=== PATIENT | male | born 1985 | race Caucasian/White ===

== ENCOUNTER 2024-10-05 07:24 | Emergency (ER) | payer SELFPAY ==
--- OUTSIDE RECORDS SUMMARY | 2024-10-05 07:28 | XMS REPORT | Continuity of Care Document ---
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 for Estimated GFR: Greater than 90 mL/min/1.73 c0Gombkeqb eGFR is based on the CKD-EPI 2020 equation thatdoes not use a race coefficient. Chemistry (test code = GLU-T) 91 mg/dL 70-105 N Chemistry (test code = CA) 9.2 mg/dL 7.8-10.44 N Chemistry (test code = TBILI-T) 0.8 mg/dL 0.2-1.2 N Chemistry (test code = TP) 6.6 g/dL 6.0-8.3 N Chemistry (test code = ALB) 4.2 g/dL 3.5-5.0 N Chemistry (test code = GLOB) 2.4 g/dL 2.4-3.5 N Chemistry (test code = AG) 1.8 g/dL 1.2-2.2 N Chemistry (test code = ALP) 67 U/L 40-110 N Chemistry (test code = AST) 15 U/L 5-34 N Chemistry (test code = ALT) 13 U/L 8-55 N [id number] 12:55:00* Test Item Value Reference Range Interpretation Comme nts Chemistry (test code = CK) 79 U/L 30-200 N [id number] 12:55:00* Test Item Value Reference Range Interpretation Comme nts Chemistry (test code = LIP) 17 U/L 8-78 N Chemistry - BNP, HgbA1c, [id number] 12:39:00* Test Item Value Reference Range Interpretation Comme nts Chemistry - BNP, HgbA1c, PTHi (test code = BNP) Less than 10.0 pg/mL 0-100 N [id number] 12:23:00* Test Item Value Reference Range Interpretation Comme [facility] Chemistry (test code = TROPI-R) Less than 0.010 ng/mL < 0.028 * Reference Range 0.00 - 0.028 ng/mL Negative 0.029 - 0.29 ng/mL Indeterminate Greater or Equal to 0.3 ng/mL Strongly suggests CO [id number] 12:08:00* Test Item Value Reference Range Interpretation Comme [facility] Hematology (test code = WBCT) 7.5 10x3/uL 4.8-10.8 N Hematology (test code = RBCT) 5.35 mill/uL 4.70-6.10 N Hematology (test code = HGBT) 16.4 g/dL 14.0-18.0 N Hematology (test code = HCTT) 48.0 % 42.0-52.0 N Hematology (test code = MCV) 89.9 fl 78.0-98.0 N Hematology (test code = MCH) 30.8 pg 27.0-31.0 N Hematology (test code = MCHC) 34.2 g/dL 32.0-36.0 N Hematology (test code = RDW) 11.7 % 11.5-14.5 N Hematology (test code = PLTT) 157 10x3/uL 130-400 N Hematology (test code = MPV) 10.1 fL 7.4-10.4 N Hematology (test code = %NEUT) 52.8 % 42.0-75.0 N Hematology (test code = %LYMPH) 35.8 % 21.0-51.0 N Hematology (test code = %MONO) 9.0 % 0.0-10.0 N Hematology (test code = %EOS) 1.9 % 0.0-10.0 N Hematology (test code = %BASO) 0.6 % 0.0-1.0 N Hematology (test code = NEUT#) 3.9 thou/uL 1.40-6.50 N Hematology (test code = LYMPH#) 2.7 thou/uL 1.20-3.40 N Hematology (test code = MONO#) 0.7 thou/uL 0.11-0.59 H Hematology (test code = EOS#) 0.1 thou/uL 0.0-0.7 N Hematology (test code = BASO#) 0.0 thou/uL 0.0-0.2 N BASIC METABOLIC [id number] 21:34:00* Test Item Value Reference Range Interpretation Comme nts SODIUM (test code = NA) 138 mmol/l 134.0-147.0 N POTASSIUM (test code = K) 4.0 mmol/L 3.6-5.2 N CHLORIDE (test code = CL) 103 mmol/l 98.0-107.0 N CARBON DIOXIDE (test code = CO2) 22.9 mmol/l 21.0-33.0 N ANION GAP (test code = GAP) 16.1 0-20 N GLUCOSE (test code = GLU) 81 mg/dl 70.0-110.0 N BLOOD UREA NITROGEN (test co de = BUN) 19 mg/dl 7.0-18.0 H CREATININE (test code = CREAT) 1.00 mg/dL 0.60-1.30 N GFR NON BLACK (test code = GFRNONBLACK) 90 mL/min 105-110 L GFR BLACK (test code = GFRBLACK) 109 mL/min 127-133 L CALCIUM (test code = CA) 8.4 mg/dl 8.0-10.5 N Specimen comments: Clean CatchHEPATIC FUNCTION PANEL [id number] 21:34:00* Test Item Value Reference Range Interpretation Comme nts TOTAL PROTEIN (test code = PROT) 7.1 GM/DL 6.0-8.1 N ALBUMIN (test code = ALB) 4.1 gm/dL 3.2-4.7 N BILIRUBIN TOTAL (test code = BILT) 2.0 mg/dl 0.0-1.0 H BILIRUBIN DIRECT (test code = BILD) 0.4 mg/dl 0.0-0.3 H SGOT/AST (test code = AST) 31 Units/L 15.0-37.0 N SGPT/ALT (test code = ALT) 26 Units/L 12.0-78.0 N ALKALINE PHOSPHATASE TOTAL ( test code = ALKP) 59 Units/L 50.0-136.0 N Specimen comments: Clean [id number] 21:34:00* Test Item Value Reference Range Interpretation Comme nts ACETAMINOPHEN (test code = ACET) <2.0 mcg/ml 10.0-30.0 L Result is in Microgram per milliliter. Specimen comments: Clean [id number] 21:34:00* Test Item Value Reference Range Interpretation Comme nts SALICYLATE (test code = DAELA) 0.4 mg/dl 2.8-20.0 L Specimen comments: Clean [id number] 21:34:00* Test Item Value Reference Range Interpretation Comme nts ALCOHOL (test code = ALC) 0.00 gm/dL 0.00-0.00 N ETHYL ALCOHOL VA LUES - INTERPRETATION: 0.050 GM/DL - NOT INTOXICATED 0.100 GM/DL - INTOXICATED 0.350-0.450 GM/DL - SEVERELY INTOXICATED 0.550 GM/DL- FATAL INTOXICATION Specimen comments: Clean CatchBASIC METABOLIC [id number] 21:27:00* Test Item Value Reference Range Interpretation Comme nts SODIUM (test code = NA) 138 mmol/l 134.0-147.0 N POTASSIUM (test code = K) 4.0 mmol/L 3.6-5.2 N CHLORIDE (test code = CL) 103 mmol/l 98.0-107.0 N CARBON DIOXIDE (test code = CO2) 22.9 mmol/l 21.0-33.0 N ANION GAP (test code = GAP) 16.1 0-20 N GLUCOSE (test code = GLU) mg/dl 70.0-110.0 BLOOD UREA NITROGEN (test co de = BUN) mg/dl 7.0-18.0 CREATININE (test code = CREAT) mg/dL 0.60-1.30 GFR NON BLACK (test code = GFRNONBLACK) mL/min 105-110 GFR BLACK (test code = GFRBLACK) mL/min 127-133 CALCIUM (test code = CA) mg/dl 8.0-10.5 Specimen comments: Clean CatchHEPATIC FUNCTION PANEL [id number] 21:27:00* Test Item Value Reference Range Interpretation Comme nts TOTAL PROTEIN (test code = PROT) gm/dL 6.4-8.2 ALBUMIN (test code = ALB) gm/dl 3.2-4.7 BILIRUBIN TOTAL (test code = BILT) mg/dl 0.0-1.0 BILIRUBIN DIRECT (test code = BILD) mg/dl 0.0-0.3 SGOT/AST (test code = AST) Units/L 15.0-37.0 SGPT/ALT (test code = ALT) Units/L 12.0-78.0 ALKALINE PHOSPHATASE TOTAL ( test code = ALKP) Units/L 50.0-136.0 Specimen comments: Clean [id number] 21:27:00* Test Item Value Reference Range Interpretation Comme nts ACETAMINOPHEN (test code = ACET) mcg/ml 10.0-30.0 Specimen comments: Clean [id number] 21:27:00* Test Item Value Reference Range Interpretation Comme nts SALICYLATE (test code = ADELA) mg/dl 2.8-20.0 Specimen comments: Clean [id number] 21:27:00* Test Item Value Reference Range Interpretation Comme nts ALCOHOL (test code = ALC) gm/dL 0.00-0.00 Specimen comments: Clean CatchCBC W/AUTO [id number] 21:24:00* Test Item Value Reference Range Interpretation Comme nts WHITE BLOOD CELL (test code = WBC) 7.4 K/mm3 4.5-11.0 N RED BLOOD CELL (test code = RBC) 4.91 M/mm3 4.40-5.90 N HEMOGLOBIN (test code = HGB) 14.6 gm/dL 13.0-17.0 N HEMATOCRIT (test code = HCT) 42.4 % 36.0-48.0 N MEAN CELL VOLUME (test code = MCV) 86.4 UM3 80.0-94.0 N MEAN CELL HGB (test code = MCH) 29.7 UUG 25.5-32.5 N MEAN CELL HGB CONCETRATION (test code = MCHC) 34.4 gm/dL 29.0-35.5 N RED CELL DISTRIBUTION WIDTH (test code = RDW) 12.5 % 11.5-15.0 N RED CELL DISTRIBUTION WIDTH SD (test code = RDW-SD) 39.3 fL 34.8-50.2 N PLATELET COUNT (test code = PLT) 109 K/mm3 150-400 L SMALL CLOTS REMOVED FROM THE SAMPLE PRIOR TO ANALYSIS, THUS,GIVING LOWER PLATELET COUNT. RECOLLECT A NEW SAMPLE IFDEEMED NECESSARY. MEAN PLATELET VOLUME (test code = MPV) 12.3 fl 7.4-10.4 H NEUTROPHIL % (test code = NT%) 53.6 % 49.0-76.0 N IMMATURE GRANULOCYTE % (test code = IG%) 0.3 % 0.0-0.4 N LYMPHOCYTE % (test code = LY%) 36.6 % 23.0-38.0 N MONOCYTE % (test code = MO%) 6.3 % 1.0-10.0 N EOSINOPHIL % (test code = EO%) 2.4 % 1.0-5.0 N BASOPHIL % (test code = BA%) 0.8 % 0.0-1.0 N NEUTROPHIL # (test code = NT#) 4.0 K/mm3 2.4-6.3 N IMMATURE GRANULOCYTE # (test code = IG#) 0.02 x10 3/uL 0.00-0.07 N LYMPHOCYTE # (test code = LY#) 2.7 K/mm3 1.2-4.0 N MONOCYTE # (test code = MO#) 0.5 K/mm3 0.0-0.6 N EOSINOPHIL # (test code = EO#) 0.2 K/MM3 0.0-0.7 N BASOPHIL # (test code = BA#) 0.1 K/mm3 0.0-0.2 N URINALYSIS [id number] 21:14:00* Test Item Value Reference Range Interpretation Comme nts UA COLOR (test code = COLU) YELLOW UA APPEARANCE (test code = APPU) CLEAR UA GLUCOSE DIPSTICK (test code = DGLUU) NORMAL mg/dl NORMAL UA BILIRUBIN DIPSTICK (test code = BILU) NEGATIVE mg/dL NEGATIVE UA KETONE DIPSTICK (test code = KETU) 50 mg/dl mg/dl NEGATIVE A UA SPECIFIC GRAVITY (test code = SGU) 1.025 1.000-1.030 UA BLOOD DIPSTICK (test code = MARLEN) NEGATIVE Juaquin/micL NEGATIVE UA PH DIPSTICK (test code = REGGIE) 6.0 5.0-9.0 UA PROTEIN DIPSTICK (test code = PROU) 15 mg/dl mg/dl NEGATIVE A UA UROBILINIOGEN DIPSTICK (test code = URO) 1.0 mg/dl mg/dl NORMAL A UA NITRITE DIPSTICK (test code = VI) NEGATIVE NEGATIVE UA LEUKOCYTE ESTERASE DIPSTICK (test code = LEUU) NEGATIVE Janelle/micL NEGATIVE UA WBC (test code = WBCU) 4-9 WBC/HPF NONE A UA RBC (test code = RBCU) NONE SEEN RBC/HPF 0-3 UA EPITHELIAL CELLS (test code = EPIU) 0-3 EPI/HPF 0-3 UA BACTERIA (test code = BACU) TRACE NONE UA MUCUS (test code = MUCU) 2+ Specimen comments: Clean CatchDRUGS OF ABUSE SCREEN [id number] 21:12:00* Test Item Value Reference Range Interpretation Comments URN COCAINE (test code = COCAURN) NEGATIVE NEGATIVE Cocaine cut-off concentration: 300 ng/mL URN CANNABINOIDS (test code = CANNABURN) POSITIVE NEGATIVE A UNCONFIRMED INIT IAL SCREENING ONLY; SUGGEST ADDITIONALCONFIRMATORY TESTING.Cannabinoids cut-off concentration: 50 ng/mL URN AMPHETAMINE (test code = AMPHETURN) POSITIVE NEGATIVE A UNCONFIRMED INIT IAL SCREENING ONLY; SUGGEST ADDITIONALCONFIRMATORY TESTING.Amphetamine cut-off concentration: 1000 ng/mL URN BARBITURATE (test code = BARBITURN) NEGATIVE NEGATIVE Barbiturate cut- off concentration: 200 ng/mL URN BENZODIAZEPINE (test code = BENZOURN) NEGATIVE NEGATIVE Benzodiazepine c ut-off concentration: 200 ng/mL URN OPIATES (test code = OPIATURN) NEGATIVE NEGATIVE Opiates cut-off concentration: 200 ng/mL URN PHENCYCLIDINE (PCP) (test code = PHENCURN) NEGATIVE NEGATIVE Phencyclidine(PC P) cut-off concentration: 25 ng/ml URN METHADONE (test code = METHAURN) NEGATIVE NEGATIVE Methadone cut-o ff concentration: 300 ng/mL Specimen comments: Clean CatchURINALYSIS [id number] 21:07:00* Test Item Value Reference Range Interpretation Comme nts UA COLOR (test code = COLU) YELLOW UA APPEARANCE (test code = APPU) CLEAR UA GLUCOSE DIPSTICK (test code = DGLUU) NORMAL mg/dl NORMAL UA BILIRUBIN DIPSTICK (test code = BILU) NEGATIVE mg/dL NEGATIVE UA KETONE DIPSTICK (test code = KETU) 50 mg/dl mg/dl NEGATIVE A UA SPECIFIC GRAVITY (test code = SGU) 1.025 1.000-1.030 UA BLOOD DIPSTICK (test code = MARLEN) NEGATIVE Juaquin/micL NEGATIVE UA PH DIPSTICK (test code = REGGIE) 6.0 5.0-9.0 UA PROTEIN DIPSTICK (test code = PROU) 15 mg/dl mg/dl NEGATIVE A UA UROBILINIOGEN DIPSTICK (test code = URO) 1.0 mg/dl mg/dl NORMAL A UA NITRITE DIPSTICK (test code = VI) NEGATIVE NEGATIVE UA LEUKOCYTE ESTERASE DIPSTICK (test code = LEUU) NEGATIVE Janelle/micL NEGATIVE UA WBC (test code = WBCU) WBC/HPF NONE UA RBC (test code = RBCU) RBC/HPF 0-3 UA EPITHELIAL CELLS (test code = EPIU) EPI/HPF 0-3 UA BACTERIA (test code = BACU) NONE Specimen comments: Clean CatchCOMPREHENSIVE METABOLIC [id number] 14:49:00* Test Item Value Reference Range Interpretation Comme nts SODIUM (test code = NA) 136 mmol/l 134.0-147.0 N POTASSIUM (test code = K) 3.3 mmol/L 3.6-5.2 L CHLORIDE (test code = CL) 103 mmol/l 98.0-107.0 N CARBON DIOXIDE (test code = CO2) 17.6 mmol/l 21.0-33.0 L ANION GAP (test code = GAP) 18.7 0-20 N GLUCOSE (test code = GLU) 76 mg/dl 70.0-110.0 N BLOOD UREA NITROGEN (test co de = BUN) 21 mg/dl 7.0-18.0 H CREATININE (test code = CREAT) 0.96 mg/dL 0.60-1.30 N GFR NON BLACK (test code = GFRNONBLACK) 95 mL/min 105-110 L GFR BLACK (test code = GFRBLACK) 114 mL/min 127-133 L TOTAL PROTEIN (test code = PROT) 6.7 GM/DL 6.0-8.1 N ALBUMIN (test code = ALB) 3.6 gm/dL 3.2-4.7 N CALCIUM (test code = CA) 8.5 mg/dl 8.0-10.5 N BILIRUBIN TOTAL (test code = BILT) 1.6 mg/dl 0.0-1.0 H SGOT/AST (test code = AST) 56 Units/L 15.0-37.0 H SGPT/ALT (test code = ALT) 46 Units/L 12.0-78.0 N ALKALINE PHOSPHATASE TOTAL ( test code = ALKP) 59 Units/L 50.0-136.0 N CALLED SANDRO AT 1424 FOR REDRAW.[id number] 14:49:00* Test Item Value Reference Range Interpretation Comme nts ALCOHOL (test code = ALC) 0.00 gm/dL 0.00-0.00 N ETHYL ALCOHOL VA LUES - INTERPRETATION: 0.050 GM/DL - NOT INTOXICATED 0.100 GM/DL - INTOXICATED 0.350-0.450 GM/DL - SEVERELY INTOXICATED 0.550 GM/DL- FATAL INTOXICATION CALLED SANDRO AT 1424 FOR REDRAW.DRUGS OF ABUSE SCREEN [id number] 14:22:00* Test Item Value Reference Range Interpretation Comments URN COCAINE (test code = COCAURN) NEGATIVE NEGATIVE Cocaine cut-off concentration: 300 ng/mL URN CANNABINOIDS (test code = CANNABURN) POSITIVE NEGATIVE A UNCONFIRMED INIT IAL SCREENING ONLY; SUGGEST ADDITIONALCONFIRMATORY TESTING.Cannabinoids cut-off concentration: 50 ng/mL URN AMPHETAMINE (test code = AMPHETURN) POSITIVE NEGATIVE A UNCONFIRMED INIT IAL SCREENING ONLY; SUGGEST ADDITIONALCONFIRMATORY TESTING.Amphetamine cut-off concentration: 1000 ng/mL URN BARBITURATE (test code = BARBITURN) NEGATIVE NEGATIVE Barbiturate cut- off concentration: 200 ng/mL URN BENZODIAZEPINE (test code = BENZOURN) NEGATIVE NEGATIVE Benzodiazepine c ut-off concentration: 200 ng/mL URN OPIATES (test code = OPIATURN) NEGATIVE NEGATIVE Opiates cut-off concentration: 200 ng/mL URN PHENCYCLIDINE (PCP) (test code = PHENCURN) NEGATIVE NEGATIVE Phencyclidine(PC P) cut-off concentration: 25 ng/ml URN METHADONE (test code = METHAURN) NEGATIVE NEGATIVE Methadone cut-o ff concentration: 300 ng/mL CBC W/AUTO [id number] 14:19:00* Test Item Value Reference Range Interpretation Comme nts WHITE BLOOD CELL (test code = WBC) 11.6 K/mm3 4.5-11.0 H RED BLOOD CELL (test code = RBC) 5.18 M/mm3 4.40-5.90 N HEMOGLOBIN (test code = HGB) 15.0 gm/dL 13.0-17.0 N HEMATOCRIT (test code = HCT) 42.7 % 36.0-48.0 N MEAN CELL VOLUME (test code = MCV) 82.4 UM3 80.0-94.0 N MEAN CELL HGB (test code = MCH) 29.0 UUG 25.5-32.5 N MEAN CELL HGB CONCETRATION (test code = MCHC) 35.1 gm/dL 29.0-35.5 N RED CELL DISTRIBUTION WIDTH (test code = RDW) 12.6 % 11.5-15.0 N RED CELL DISTRIBUTION WIDTH SD (test code = RDW-SD) 38.1 fL 34.8-50.2 N PLATELET COUNT (test code = PLT) 195 K/mm3 150-400 N MEAN PLATELET VOLUME (test c ode = MPV) 11.2 fl 7.4-10.4 H NEUTROPHIL % (test code = NT%) 71.9 % 49.0-76.0 N IMMATURE GRANULOCYTE % (test code = IG%) 0.4 % 0.0-0.4 N LYMPHOCYTE % (test code = LY%) 17.2 % 23.0-38.0 L MONOCYTE % (test code = MO%) 9.4 % 1.0-10.0 N EOSINOPHIL % (test code = EO%) 0.7 % 1.0-5.0 L BASOPHIL % (test code = BA%) 0.4 % 0.0-1.0 N NEUTROPHIL # (test code = NT#) 8.3 K/mm3 2.4-6.3 H IMMATURE GRANULOCYTE # (test code = IG#) 0.05 x10 3/uL 0.00-0.07 N LYMPHOCYTE # (test code = LY#) 2.0 K/mm3 1.2-4.0 N MONOCYTE # (test code = MO#) 1.1 K/mm3 0.0-0.6 H EOSINOPHIL # (test code = EO#) 0.1 K/MM3 0.0-0.7 N BASOPHIL # (test code = BA#) 0.1 K/mm3 0.0-0.2 N URINALYSIS [id number] 14:19:00* Test Item Value Reference Range Interpretation Comme nts UA COLOR (test code = COLU) YELLOW UA APPEARANCE (test code = APPU) SLHZY UA GLUCOSE DIPSTICK (test code = DGLUU) NORMAL mg/dl NORMAL UA BILIRUBIN DIPSTICK (test code = BILU) NEGATIVE mg/dL NEGATIVE UA KETONE DIPSTICK (test code = KETU) 150 mg/dl mg/dl NEGATIVE A UA SPECIFIC GRAVITY (test code = SGU) 1.025 1.000-1.030 UA BLOOD DIPSTICK (test code = MARLEN) 150 Juaquin/micL Juaquin/micL NEGATIVE A UA PH DIPSTICK (test code = REGGIE) 6.0 5.0-9.0 UA PROTEIN DIPSTICK (test code = PROU) 15 mg/dl mg/dl NEGATIVE A UA UROBILINIOGEN DIPSTICK (test code = URO) NORMAL mg/dl NORMAL UA NITRITE DIPSTICK (test code = VI) NEGATIVE NEGATIVE UA LEUKOCYTE ESTERASE DIPSTICK (test code = LEUU) 25 Janelle/micL Janelle/micL NEGATIVE A UA WBC (test code = WBCU) 1-3 WBC/HPF NONE UA RBC (test code = RBCU) 25-50 RBC/HPF 0-3 A UA EPITHELIAL CELLS (test code = EPIU) 2-5 EPI/HPF 0-3 A UA BACTERIA (test code = BACU) MOD NONE URINALYSIS [id number] 14:13:00* Test Item Value Reference Range Interpretation Comme nts UA COLOR (test code = COLU) UA APPEARANCE (test code = APPU) UA GLUCOSE DIPSTICK (test code = DGLUU) NORMAL mg/dl NORMAL UA BILIRUBIN DIPSTICK (test code = BILU) NEGATIVE mg/dL NEGATIVE UA KETONE DIPSTICK (test code = KETU) 150 mg/dl mg/dl NEGATIVE A UA SPECIFIC GRAVITY (test code = SGU) 1.025 1.000-1.030 UA BLOOD DIPSTICK (test code = MARLEN) 150 Juaquin/micL Juaquin/micL NEGATIVE A UA PH DIPSTICK (test code = REGGIE) 6.0 5.0-9.0 UA PROTEIN DIPSTICK (test code = PROU) 15 mg/dl mg/dl NEGATIVE A UA UROBILINIOGEN DIPSTICK (test code = URO) NORMAL mg/dl NORMAL UA NITRITE DIPSTICK (test code = VI) NEGATIVE NEGATIVE UA LEUKOCYTE ESTERASE DIPSTICK (test code = LEUU) 25 Janelle/micL Janelle/micL NEGATIVE A UA WBC (test code = WBCU) WBC/HPF NONE UA RBC (test code = RBCU) RBC/HPF 0-3 UA EPITHELIAL CELLS (test code = EPIU) EPI/HPF 0-3 UA BACTERIA (test code = BACU) NONE RPR [id number] 23:54:31* Test Item Value Reference Range Interpretation Comme nts RPR Qual (test code = RPR Qual) Non-Reactive Non-Reactive Reactive Control (test code = Reactive Control) Reactive Weak Reactive Control (test code = Weak Reactive Control) Weak Reactive Non-Reactive Control (test c ode = Non-Reactive Control) Non-Reactive Lot # (test code = Lot #) [id number] N Expiration Dt (test code = Expiration Dt) 08.31.2020 N Lipid [id number] 15:40:15* Test Item Value Reference Range Interpretation Comme nts Cholesterol Total (test code = Cholesterol Total) 123 mg/dL 0-200 RISK OF HEART DISEASEPublished by [place] Heart Association Analyte Optimal Borderline Increased RiskCHOL <200 200-239 >240TRIG <150 150-199 >200HDL Male >60 <40HDL Female >60 <50LDL <100 130-159 >160LDL Near optimal is 100-129 Triglycerides (test code = Triglycerides) 89 mg/dL 9-200 HDL (test code = HDL) 36 mg/dL 40-60 L LDL (test code = LDL) 69 mg/dL 0-130 The equation being used in this calculation is LDL = (Chol - HDL) - (Trig / 5) VLDL (test code = VLDL) 18 mg/dL 5-40 The equation kiya ng used in this calculation is VLDL = Trig / 5 Chol/HDL (test code = Chol/HDL) 3.4 ratio 0.0-5.0 LDL/HDL Ratio (test code = LDL/HDL Ratio) 2 N The equati on being used in this calculation is LDL/HDL Ratio=LDL Calc/HDL Chol Thyroid Stimulating [id number] 15:40:15* Test Item Value Reference Range Interpretation Comme nts TSH (test code = TSH) 0.869 mIU/mL 0.270-4.200 Urine Drug [id number] 20:11:25* Test Item Value Reference Range Interpretation Comme nts Amphetamine Screen Ur (test code = Amphetamine Screen Ur) POSITIVE Negative A Barbiturate Screen Ur (test code = Barbiturate Screen Ur) Negative Negative Benzodiazepines Ur (test code = Benzodiazepines Ur) Negative Negative Cocaine Screen Ur (test code = Cocaine Screen Ur) Negative Negative U Methadone Scr (test code = U Methadone Scr) Negative Negative Opiate Screen Ur (test code = Opiate Screen Ur) Negative Negative U PCP Scrn (test code = U PCP Scrn) Negative Negative Cannabinoid Screen Ur (test code = Cannabinoid Screen Ur) POSITIVE Negative A U TCA (test code = U TCA) Negative Negative The results of a ll drug screen tests are only preliminary. Clinical consideration and professional judgment should be applied to any drug of abuse test result, particularly when preliminary positive results are obtained. Please order a separate confirmatory test if desired. Alcohol [id number] 19:27:54* Test Item Value Reference Range Interpretation Comme nts Ethanol Level (test code = Ethanol Level) 0.06 g/dL 0.00-0.01 H Intoxicated 0.08 0 g/dL or more Ethanol Inst (test code = Ethanol Inst) 61 N Comprehensive Metabolic [id number] 19:27:53* Test Item Value Reference Range Interpretation Comme nts Sodium Level (test code = So dium Level) 141.0 mmol/L 135.0-145.0 Potassium Level (test code = Potassium Level) 4.6 mmol/L 3.5-5.1 Chloride Level (test code = Chloride Level) 104 mmol/L 98-105 CO2 (test code = CO2) 25 mmol/L 22-29 Anion Gap (test code = Anion Gap) 12 mmol/L 7-16 BUN (test code = BUN) 6.10 mg/dL 6.00-20.00 Creatinine Level (test code = Creatinine Level) 0.90 mg/dL 0.70-1.20 BUN/Creat Ratio (test code = BUN/Creat Ratio) 7 N Glucose Level (test code = Glucose Level) 91 mg/dL 70-115 Calcium Level (test code = Calcium Level) 9.3 mg/dL 8.3-10.5 Alk Phos (test code = Alk Phos) 57 U/L 40-129 Bilirubin Total (test code = Bilirubin Total) 0.9 mg/dL 0.1-0.9 Albumin Level (test code = Albumin Level) 4.5 g/dL 3.5-5.2 Protein Total (test code = Protein Total) 6.9 g/dL 6.4-8.3 ALT (test code = ALT) 11 U/L 1-41 AST (test code = AST) 18 U/L 1-40 Globulin (test code = Globulin) 2.4 g/dL 2.9-3.1 L A/G Ratio (test code = A/G Ratio) 1.9 ratio N Creatine [id number] 19:27:53* Test Item Value Reference Range Interpretation Comme nts CK (test code = CK) 77 U/L 39-308 Comprehensive Metabolic [id number] 19:27:53* Test Item Value Reference Range Interpretation Comme nts Sodium Level (test code = Sodium Level) 141.0 mmol/L 135.0-145.0 Potassium Level (test code = Potassium Level) 4.6 mmol/L 3.5-5.1 Chloride Level (test code = Chloride Level) 104 mmol/L 98-105 CO2 (test code = CO2) 25 mmol/L 22-29 Anion Gap (test code = Anion Gap) 12 mmol/L 7-16 BUN (test code = BUN) 6.10 mg/dL 6.00-20.00 Creatinine Level (test code = Creatinine Level) 0.90 mg/dL 0.70-1.20 BUN/Creat Ratio (test code = BUN/Creat Ratio) 7 N Glucose Level (test code = Glucose Level) 91 mg/dL 70-115 Calcium Level (test code = Calcium Level) 9.3 mg/dL 8.3-10.5 Alk Phos (test code = Alk Phos) 57 U/L 40-129 Bilirubin Total (test code = Bilirubin Total) 0.9 mg/dL 0.1-0.9 Albumin Level (test code = Albumin Level) 4.5 g/dL 3.5-5.2 Protein Total (test code = Protein Total) 6.9 g/dL 6.4-8.3 ALT (test code = ALT) 11 U/L 1-41 AST (test code = AST) 18 U/L 1-40 Globulin (test code = Globulin) 2.4 g/dL 2.9-3.1 L A/G Ratio (test code = A/G Ratio) 1.9 ratio N eGFR AA (test code = eGFR AA) >60 mL/min/1.73 m2 N eGFR (estimated Glomerular Filtration Rate) is an estimated value, calculated from the patient's serum creatinine using the MDRD equation. It is NOT the patient's actual GFR. The eGFR provides a more clinically useful measure of kidney disease than serum creatinine alone.This calculation takes sex and race into account, if the information is provided. If the race is not provided, and the patient is -Citizen Of [place], multiply by 1.212. If sex is not provided, and the patient is female, multiply by 0.742. Results for patients <18 years of age have not been validated by the MDRD study and should be interpreted with caution. eGFR Result Interpretation:eGFR > or = 60 is in the Normal RangeeGFR < 60 may mean kidney diseaseeGFR < 15 may mean kidney failure Ranges recommended by the National Kidney Foundation, http://nkdep.nih.gov Comprehensive Metabolic [id number] 19:27:53* Test Item Value Reference Range Interpretation Comme nts Sodium Level (test code = Sodium Level) 141.0 mmol/L 135.0-145.0 Potassium Level (test code = Potassium Level) 4.6 mmol/L 3.5-5.1 Chloride Level (test code = Chloride Level) 104 mmol/L 98-105 CO2 (test code = CO2) 25 mmol/L 22-29 Anion Gap (test code = Anion Gap) 12 mmol/L 7-16 BUN (test code = BUN) 6.10 mg/dL 6.00-20.00 Creatinine Level (test code = Creatinine Level) 0.90 mg/dL 0.70-1.20 BUN/Creat Ratio (test code = BUN/Creat Ratio) 7 N Glucose Level (test code = Glucose Level) 91 mg/dL 70-115 Calcium Level (test code = Calcium Level) 9.3 mg/dL 8.3-10.5 Alk Phos (test code = Alk Phos) 57 U/L 40-129 Bilirubin Total (test code = Bilirubin Total) 0.9 mg/dL 0.1-0.9 Albumin Level (test code = Albumin Level) 4.5 g/dL 3.5-5.2 Protein Total (test code = Protein Total) 6.9 g/dL 6.4-8.3 ALT (test code = ALT) 11 U/L 1-41 AST (test code = AST) 18 U/L 1-40 Globulin (test code = Globulin) 2.4 g/dL 2.9-3.1 L A/G Ratio (test code = A/G Ratio) 1.9 ratio N eGFR AA (test code = eGFR AA) >60 mL/min/1.73 m2 N eGFR (estimated Glomerular Filtration Rate) is an estimated value, calculated from the patient's serum creatinine using the MDRD equation. It is NOT the patient's actual GFR. The eGFR provides a more clinically useful measure of kidney disease than serum creatinine alone.This calculation takes sex and race into account, if the information is provided. If the race is not provided, and the patient is -Citizen Of [place], multiply by 1.212. If sex is not provided, and the patient is female, multiply by 0.742. Results for patients <18 years of age have not been validated by the MDRD study and should be interpreted with caution. eGFR Result Interpretation:eGFR > or = 60 is in the Normal RangeeGFR < 60 may mean kidney diseaseeGFR < 15 may mean kidney failure Ranges recommended by the National Kidney Foundation, http://nkdep.nih.gov eGFR Non-AA (test code = eGFR Non-AA) >60.00 mL/min/1.73 m2 N eGFR (estimated Glomerular Filtration Rate) is an estimated value, calculated from the patient's serum creatinine using the MDRD equation. It is NOT the patient's actual GFR. The eGFR provides a more clinically useful measure of kidney disease than serum creatinine alone.This calculation takes sex and race into account, if the information is provided. If the race is not provided, and the patient is -Citizen Of [place], multiply by 1.212. If sex is not provided, and the patient is female, multiply by 0.742. Results for patients <18 years of age have not been validated by the MDRD study and should be interpreted with caution. eGFR Result Interpretation:eGFR > or = 60 is in the Normal RangeeGFR < 60 may mean kidney diseaseeGFR < 15 may mean kidney failure Ranges recommended by the National Kidney Foundation, http://nkdep.nih.gov Urinalysis with Microscopic if [id number] 19:25:38* Test Item Value Reference Range Interpretation Comme nts UA Color (test code = UA Color) YELLO Yellow UA Appear (test code = UA Appear) CLEAR Clear UA pH (test code = UA pH) 5 N UA Spec Grav (test code = UA Spec Grav) 1.005 1.001-1.035 UA Glucose (test code = UA Glucose) NEG Negative UA Ketones (test code = UA Ketones) NEG Negative UA Blood (test code = UA Blood) NEG Negative UA Protein (test code = UA Protein) NEG Negative UA Bili (test code = UA Bili) NEG Negative UA Urobilinogen (test code = UA Urobilinogen) 0.2 mg/dL N UA Nitrite (test code = UA Nitrite) NEG Negative UA Leuk Est (test code = UA Leuk Est) NEG Negative UA Micro Ind? (test code = UA Micro Ind?) Not Indicated Not Indicated Result cre ated by rule GL_SJM_UA_MICRO_IN D Automated [id number] 19:25:03* Test Item Value Reference Range Interpretation Comme nts Neutro Auto (test code = Mamadou tro Auto) 47.9 % 36.0-70.0 Lymph Auto (test code = Lymph Auto) 42.5 % 12.0-44.0 Chester Auto (test code = Chester Auto) 6.3 % 0.0-11.0 Eos, Auto (test code = Eos, Auto) 2.4 % 0.0-7.0 Basophil Auto (test code = B asophil Auto) 0.7 % 0.0-2.0 Neutro Absolute (test code = Neutro Absolute) 2.6 x10 1.6-7.4 Lymph Absolute (test code = Lymph Absolute) 2.30 x10 .50-4.60 Chester Absolute (test code = M tim Absolute) .34 x10 .00-1.20 Eos Absolute (test code = Eo s Absolute) 0.13 x10 0.00-0.74 Baso Absolute (test code = B aso Absolute) 0.04 x10 0.00-0.21 IG [id number] 19:25:03* Test Item Value Reference Range Interpretation Comme nts IG (test code = IG) 0.2 % 0.0-5.0 IG Abs (test code = IG Abs) 0 x10 N Complete Blood Count with [id number] 19:25:02* Test Item Value Reference Range Interpretation Comme nts WBC (test code = WBC) 5.4 x10 4.4-10.5 RBC (test code = RBC) 5.32 x10 4.10-5.70 Hgb (test code = Hgb) 15.9 g/dL 13.4-17.4 MCV (test code = MCV) 85.70 fL 80.00-100.00 Hct (test code = Hct) 45.6 % 38.7-52.0 MCHC (test code = MCHC) 34.90 g/dL 32.00-37.50 RDW CV (test code = RDW CV) 12.9 % 11.5-14.5 MCH (test code = MCH) 29.9 pg 27.0-32.5 Platelets (test code = Platelets) 200.0 x10 140.0-440.0 MPV (test code = MPV) 11.4 fL N Slide Review (test code = Slide Review) Auto Auto Result crea oralia by GL_SJM_SLIDE_REV_AUTO nRBC (test code = nRBC) 0 N NRBC Abs (test code = NRBC Abs) 0.00 x10 N IPF (test code = IPF) 0 % N COMPREHENSIVE METABOLIC [id number] 18:08:00* Test Item Value Reference Range Interpretation Comme nts SODIUM (test code = NA) 138 mEq/L 134-147 N POTASSIUM (test code = K) 4.2 mEq/L 3.4-5.0 N CHLORIDE (test code = CL) 107 mEq/L 100-108 N CARBON DIOXIDE (test code = CO2) 26 mEq/L 21-33 N ANION GAP (test code = GAP) 9 0-20 N GLUCOSE (test code = GLU) 89 mg/dL 70-110 N BLOOD UREA NITROGEN (test code = BUN) 12 mg/dL 7-18 N GLOMERULAR FILTRATION RATE (test code = GFR) 110.0 105-110 N Units of measure = ml/min/1.73 m2 CREATININE (test code = CREAT) 0.8 mg/dL 0.6-1.3 N TOTAL PROTEIN (test code = PROT) 7.3 g/dL 6.4-8.2 N ALBUMIN (test code = ALB) 4.10 g/dL 3.4-5.0 N CALCIUM (test code = CA) 8.8 mg/dL 8.0-10.5 N BILIRUBIN TOTAL (test code = BILT) 0.5 MG/DL <1.5 N SGOT/AST (test code = AST) 19 IUnit/L 15-37 N SGPT/ALT (test code = ALT) 27 IUnit/L 15-65 N ALKALINE PHOSPHATASE TOTAL (test code = ALKP) 78 IUnit/L 20-125 N [id number] 18:08:00* Test Item Value Reference Range Interpretation Comme nts LIPASE (test code = LIP) 100 IUnit/L 73-393 N [id number] 18:08:00* Test Item Value Reference Range Interpretation Comme nts TROPONIN-I (test code = TROPI) < 0.015 ng/mL 0.000-0.045 N Negative: <= 0.0 45 Positive: >= 0.046 Correlation with serial results, other cardiac markers andclinical findings is necessary to determine the clinicalsignificance of this result. Results using different methodologies should not be comparedto one another as quantitative results may vary by method. [id number] 18:06:00* Test Item Value Reference Range Interpretation Comme nts D-DIMER (test code = DDIMER) 227 ng/mlFEU <=500 N THROMBOSIS AND/O R PULMONARY EMBOLISM AND THE CLINICAL CUT- OFF VALUE FOR EXCLUSION (500 ng/mL FEU) OF THESE CONDITIONSIS VALIDATED BY THE INDUSTRIAL GAS SERVICER OF THE METHOD. A NEGATIVE D-DIMER RESULT WHEN COMBINED WITH A CLINICALASSESSMENT OF LOW PRETEST PROBABILITY HAS BEEN SHOWN TO HAVEA HIGH NEGATIVE PREDICTIVE VALUE OF DVT OR PE. D-DIMER VALUES >500 ng/mL FEU ARE NOT DIAGNOSTIC FOR DVT, PEor DIC WITHOUT OTHER CONFIRMATORY TESTS AND APPROPRIATECLINICAL EUALUATIONS. - XR CHEST 2 [id number] 17:54:00FAX: Oscar Phan [phone] [place]: St: REG Name: CHANNING CALVERT [facility] : 1985 Age/S: 34/M [address] [place] [address] Unit #: [id number] Loc: [place] [address] Phys: Oscar Phan Acct: [id number] Dis Date: Status: REG ER PHONE #: [phone] Exam Date: 08/03/2019 174 FAX #: [phone] Reason: cough for two weeks with fever EXAMS: CPT CODE: [id number] XR CHEST 2 V 31007 Clinical Indication: Cough, fever. Comparison: 01/25/2014. Impression: Chest, 2 views. Lungs are clear. No consolidation, pleural effusion, or pneumothorax. Cardiomediastinal silhouette is unremarkable.No acute osseous abnormality. SL: [id number] Electronically Signed by Josefina Marcial on 08/03/2019 at 1754 Reported and signed by: Liss Marcial M.D. CC: Oscar MONTES Technologist: RT Andrew(Radha) Trnscrd Date/Time/By: 08/03/2019 (1753) : By: [email or web address] Orig Print D/T: S: 08/03/2019 (649) PAGE 1 Signed ReportCBC W/AUTO [id number] 17:48:00* Test Item Value Reference Range Interpretation Comme nts WHITE BLOOD CELL (test code = WBC) 6.79 x10 3/uL 4.5-11.0 N RED BLOOD CELL (test code = RBC) 5.28 x10 6/uL 4.00-5.60 N HEMOGLOBIN (test code = HGB) 15.7 g/dL 12.5-16.9 N HEMATOCRIT (test code = HCT) 45.7 % 37.5-50.7 N MEAN CELL VOLUME (test code = MCV) 86.6 fL 81.0-99.0 N MEAN CELL HGB (test code = MCH) 29.7 pg 27.0-33.0 N MEAN CELL HGB CONCETRATION (test code = MCHC) 34.4 g/dL 33.0-37.0 N RED CELL DISTRIBUTION WIDTH CV (test code = RDW) 12.3 % 11.5-14.5 N RED CELL DISTRIBUTION WIDTH SD (test code = RDW-SD) 39.2 fL 37.0-54.0 N PLATELET COUNT (test code = PLT) 208 x10 3/uL 150-400 N MEAN PLATELET VOLUME (test c ode = MPV) 12.0 fL 7.0-9.0 H NEUTROPHIL % (test code = NT%) 48.7 % 56.0-77.0 L IMMATURE GRANULOCYTE % (test code = IG%) 0.4 % 0.0-2.0 N LYMPHOCYTE % (test code = LY%) 39.2 % 14.0-32.0 H MONOCYTE % (test code = MO%) 7.1 % 4.8-9.0 N EOSINOPHIL % (test code = EO%) 3.7 % 0.3-3.7 N BASOPHIL % (test code = BA%) 0.9 % 0.0-2.0 N NUCLEATED RBC % (test code = NRBC%) 0.0 % 0-0 N NEUTROPHIL # (test code = NT#) 3.31 x10 3/uL 2.0-7.6 N IMMATURE GRANULOCYTE # (test code = IG#) 0.03 x10 3/uL 0.00-0.03 N LYMPHOCYTE # (test code = LY#) 2.66 x10 3/uL 1.0-3.8 N MONOCYTE # (test code = MO#) 0.48 x10 3/uL 0.1-0.8 N EOSINOPHIL # (test code = EO#) 0.25 x10 3/uL 0.0-0.2 H BASOPHIL # (test code = BA#) 0.06 x10 3/uL 0.0-0.2 N NUCLEATED RBC # (test code = NRBC#) 0.00 x10 3/uL 0.0-0.1 N MANUAL DIFF REQUIRED (test c ode = MDIFF) NO DRUGS OF ABUSE SCREEN [id number] 01:39:00* Test Item Value Reference Range Interpretation Comments URN COCAINE (test code = COCAURN) NEGATIVE NEGATIVE Cocaine cut-off concentration: 300 ng/mL URN CANNABINOIDS (test code = CANNABURN) POSITIVE NEGATIVE A UNCONFIRMED INIT IAL SCREENING ONLY; SUGGEST ADDITIONALCONFIRMATORY TESTING.Cannabinoids cut-off concentration: 50 ng/mL URN AMPHETAMINE (test code = AMPHETURN) NEGATIVE NEGATIVE Amphetamine cut- off concentration: 1000 ng/mL URN BARBITURATE (test code = BARBITURN) NEGATIVE NEGATIVE Barbiturate cut- off concentration: 200 ng/mL URN BENZODIAZEPINE (test code = BENZOURN) NEGATIVE NEGATIVE Benzodiazepine c ut-off concentration: 200 ng/mL URN OPIATES (test code = OPIATURN) NEGATIVE NEGATIVE Opiates cut-off concentration: 200 ng/mL URN PHENCYCLIDINE (PCP) (test code = PHENCURN) POSITIVE NEGATIVE A UNCONFIRMED INIT IAL SCREENING ONLY; SUGGEST ADDITIONALCONFIRMATORY TESTING.Phencyclidine(PCP) cut-off concentration: 25 ng/ml URN METHADONE (test code = METHAURN) NEGATIVE NEGATIVE Methadone cut-o ff concentration: 300 ng/mL COMPREHENSIVE METABOLIC [id number] 01:39:00* Test Item Value Reference Range Interpretation Comme nts SODIUM (test code = NA) 139 mmol/l 134.0-147.0 N POTASSIUM (test code = K) 4.3 mmol/L 3.6-5.2 N CHLORIDE (test code = CL) 104 mmol/l 98.0-107.0 N CARBON DIOXIDE (test code = CO2) 28.4 mmol/l 21.0-33.0 N ANION GAP (test code = GAP) 10.9 0-20 N GLUCOSE (test code = GLU) 90 mg/dl 70.0-110.0 N BLOOD UREA NITROGEN (test co de = BUN) 12 mg/dl 7.0-18.0 N CREATININE (test code = CREAT) 0.92 mg/dL 0.60-1.30 N GFR NON BLACK (test code = GFRNONBLACK) 99 mL/min 105-110 L GFR BLACK (test code = GFRBLACK) 120 mL/min 127-133 L TOTAL PROTEIN (test code = PROT) 7.2 GM/DL 6.0-8.1 N ALBUMIN (test code = ALB) 4.0 gm/dL 3.2-4.7 N CALCIUM (test code = CA) 8.5 mg/dl 8.0-10.5 N BILIRUBIN TOTAL (test code = BILT) 0.8 mg/dl 0.0-1.0 N SGOT/AST (test code = AST) 22 Units/L 15.0-37.0 N SGPT/ALT (test code = ALT) 20 Units/L 12.0-78.0 N ALKALINE PHOSPHATASE TOTAL ( test code = ALKP) 61 Units/L 50.0-136.0 N [id number] 01:39:00* Test Item Value Reference Range Interpretation Comme nts ALCOHOL (test code = ALC) 0.00 gm/dL 0.00-0.00 N ETHYL ALCOHOL VA LUES - INTERPRETATION: 0.050 GM/DL - NOT INTOXICATED 0.100 GM/DL - INTOXICATED 0.350-0.450 GM/DL - SEVERELY INTOXICATED 0.550 GM/DL- FATAL INTOXICATION COMPREHENSIVE METABOLIC [id number] 01:32:00* Test Item Value Reference Range Interpretation Comme nts SODIUM (test code = NA) 139 mmol/l 134.0-147.0 N POTASSIUM (test code = K) 4.3 mmol/L 3.6-5.2 N CHLORIDE (test code = CL) 104 mmol/l 98.0-107.0 N CARBON DIOXIDE (test code = CO2) 28.4 mmol/l 21.0-33.0 N ANION GAP (test code = GAP) 10.9 0-20 N GLUCOSE (test code = GLU) mg/dl 70.0-110.0 BLOOD UREA NITROGEN (test co de = BUN) mg/dl 7.0-18.0 CREATININE (test code = CREAT) mg/dL 0.60-1.30 GFR NON BLACK (test code = GFRNONBLACK) mL/min 105-110 GFR BLACK (test code = GFRBLACK) mL/min 127-133 TOTAL PROTEIN (test code = PROT) gm/dL 6.4-8.2 ALBUMIN (test code = ALB) gm/dl 3.2-4.7 CALCIUM (test code = CA) mg/dl 8.0-10.5 BILIRUBIN TOTAL (test code = BILT) mg/dl 0.0-1.0 SGOT/AST (test code = AST) Units/L 15.0-37.0 SGPT/ALT (test code = ALT) Units/L 12.0-78.0 ALKALINE PHOSPHATASE TOTAL ( test code = ALKP) Units/L 50.0-136.0 [id number] 01:32:00* Test Item Value Reference Range Interpretation Comme nts ALCOHOL (test code = ALC) gm/dL 0.00-0.00 CBC W/AUTO [id number] 01:26:00* Test Item Value Reference Range Interpretation Comme nts WHITE BLOOD CELL (test code = WBC) 13.8 K/mm3 4.5-11.0 H RED BLOOD CELL (test code = RBC) 5.46 M/mm3 4.40-5.90 N HEMOGLOBIN (test code = HGB) 16.0 gm/dL 13.0-17.0 N HEMATOCRIT (test code = HCT) 47.3 % 36.0-48.0 N MEAN CELL VOLUME (test code = MCV) 86.6 UM3 80.0-94.0 N MEAN CELL HGB (test code = MCH) 29.3 UUG 25.5-32.5 N MEAN CELL HGB CONCETRATION (test code = MCHC) 33.8 gm/dL 29.0-35.5 N RED CELL DISTRIBUTION WIDTH (test code = RDW) 12.9 % 11.5-15.0 N RED CELL DISTRIBUTION WIDTH SD (test code = RDW-SD) 39.9 fL 34.8-50.2 N PLATELET COUNT (test code = PLT) 226 K/mm3 150-400 N MEAN PLATELET VOLUME (test c ode = MPV) 11.5 fl 7.4-10.4 H NEUTROPHIL % (test code = NT%) 77.5 % 49.0-76.0 H IMMATURE GRANULOCYTE % (test code = IG%) 0.5 % 0.0-0.4 H LYMPHOCYTE % (test code = LY%) 14.1 % 23.0-38.0 L MONOCYTE % (test code = MO%) 7.4 % 1.0-10.0 N EOSINOPHIL % (test code = EO%) 0.1 % 1.0-5.0 L BASOPHIL % (test code = BA%) 0.4 % 0.0-1.0 N NEUTROPHIL # (test code = NT#) 10.7 K/mm3 2.4-6.3 H IMMATURE GRANULOCYTE # (test code = IG#) 0.07 x10 3/uL 0.00-0.07 N LYMPHOCYTE # (test code = LY#) 2.0 K/mm3 1.2-4.0 N MONOCYTE # (test code = MO#) 1.0 K/mm3 0.0-0.6 H EOSINOPHIL # (test code = EO#) 0.0 K/MM3 0.0-0.7 N BASOPHIL # (test code = BA#) 0.1 K/mm3 0.0-0.2 N XR Chest 1 View Portable [facility] BRYDunnellonme: CHANNING CALVERT : 1985 [facility] Name: CHANNING CALVERT [address] Phys: [place] [address] : 1985 Age: 37 SEX:M [phone] Exam Date: 12/03/22 Status: REG ER Acct: [id number] Loc: ERS Pt Unit #: [id number] Report #: [id number] CC: LISS BHANDARI MD IMAGING SERVICES REPORT Report Status: Signed Order # Category/Exam [id number] RAD/XR Chest 1View Portable ([id number]): . Results XR Chest 1 View Portable History: Chest pain Comparison: None. Findings: Clear lungs. No pneumothorax. No effusion. No acute osseous abnormality. Impression: No acute intrathoracic abnormality. Reported By: LISS UGDINO Electronically Signed Date/Time: 12/03/221224 Technologist: Dictated Date/Time: 12/03/221224 Transcribed Date/Time: Notes Date/Time Note Provider Source 2024-02-03 11:44:47 Suicide Risk - Assessment and Plan [place]: 1) Have you wished you were or could go to sleep and not wake up?: Yes 2) Have you had thoughts of killing yourself?: Yes 3) Have you been thinking about how you might kill yourself?: Yes 3a) Describe: overdose 4) Suicidal ideation with some intent?: Yes 5) Have you worked out the details of the plan AND intend to follow through?: Yes 6) Suicidal Behavior or preparation for suicide?: Yes 6a) Describe: took xanax & meth today 6b) Was it in the past 3 months?: Yes [place] Score: Suggested risk level: High SAFE-T: Current and past psychiatric diagnoses: Mood Disorder;Alcohol/substance abuse disorders Presenting symptoms: Anhedonia;Hopelessness or despair Family history: Other (see comments) (unknown) Activating Events: Other (see comments) (mom , recently released from correction after 20 yrs) Precipitants / stressors: Substance intoxication or withdrawal Protective factors: Positive family/friend relationships Access to Lethal Means: Does patient have access to a gun or access to guns?: Yes (but his took them away today) Specific Questions of Thoughts, Plans, Intent: Frequency- how many times have you had these thought?: Daily or almost dailly 2.Duration - When you have the thoughts, how long do they last?: More than 8 hours/persistent or continuous 3.Controllability - could/can you stop thinking about killing yourself or wanting to if you want to? "Is it easy, a little hard, very hard, or are you unable?": Unable to control thoughts 4.Deterrents - are there things, anyone or anything (family, anglican, pain of ) that have stopped you from wanting to or acting on thoughts of committing suicide?: Uncertain that deterrents stopped you Reasons for ideation - What are the reasons you have for wanting to or kill yourself? Was it to end pain, stop the way you are feeling, or to get attention, or get revenge and reaction from others?: Mostly to end or stop the pain (could not go on living with the pain or how you were feeling) Behavior Assessment: 1.Were there preparatory acts like buying pills, guns, giving things away, or writing suicide note?: No 2.Was an attempt aborted or self - interrupted?: No 3.Was an attempt interrupted by someone else?: Yes (by ) 4.Was there an actual attempt?: Comments (unsure) 5.Is there non suicidal self injury? Cutting, biting, skin picking: No 7.Is there homicidal ideation: if so, describe: Yes Describe: "thoughts of murder" Stratification: High Suicide Risk Moderate Suicide Risk Low Suicide Risk ?? Suicidal ideation with intent or intent with plan in past month (C-SSRS Suicidal Ideation #4 or #5) Or ?? Suicidal behavior within past 3 months (C-SSRS Suicidal Behavior) ?? Suicidal ideation with method, WITHOUT plan, intent or behavior in past month (C-SSRS Suicidal Ideation #3) Or ?? Suicidal behavior more than 3 months ago (C-SSRS Suicidal Behavior Lifetime) Or ?? Multiple risk factors and few protective factors ?? Wish to or Suicidal Ideation WITHOUT method, intent, plan or behavior (C-SSRS Suicidal Ideation #1 or #2) Or ?? Modifiable risk factors and strong protective factors Or ? No reported history of Suicidal Ideation or Behavior Location / Risk: Inpatient / High: Suicidal ideation with intent and with realistic plan and no protective factors in past month OR suicidal behavior within the past 3 months. Includes suicidal behavior as reason for admission. a. Mitigate the risk for suicide by instituting one-one monitoring, removing objects that pose a risk for self-harm, assessing objects brought into a room by visitors, using safe transportation procedures when moving patient to another part of the unit or another part of the hospital, and performing the checklist recommendations for a safe environment. b. Food tray in plastic or paper containers with plastic utensils (no knives or aluminum cans). c. Transfer to Inpatient Psychiatry facility/Psychiatry Consult once medically cleared. d. Follow-up determined by the inpatient Psychiatric facility. [facility] 2024-02-03 11:07:10 [facility] E[facility] 35 minutes [facility] STAFF [facility] 2024-02-03 10:03:49 Requested [facility] screener. [facility] 2024-02-03 08:00:50 Patient remains under suicide precautions. Continuous observation in place, patient currently sleeping. T [facility] 2024-02-03 07:02:39 Continue to monitor patient. Patient progressing as expected. T [facility] 2024-02-02 15:20:00 Faxed exclusionary to [facility]. Elizabeth Garcia RN [facility] 2024-02-02 14:50:00 Pt complaining of spot on left forearm that is itching. [facility] 2024-02-02 09:36:32 Report to Abram at [facility]. [facility] 2024-02-02 09:10:59 Sedrick from [facility] called to state pt's bed they secured yesterday has been given away at [facility]. [facility] was able to get pt "first on waiting list" but "Dorian from [facility]" wants pt's clinicals faxed to him. Dorian's phone # [phone]. Will notify [facility]. Critical access hospital 2024-02-02 07:05:22 Report to Radha BRICE [facility] Nahomy White RN [facility] 2024-02-02 02:51:12 Pt calm, cooperative, lying with eyes closed. Sitter at bedside. Critical access hospital 2024-02-01 19:25:00 Faxed exclusionary and patient chart to [facility], fax confirmation received. Critical access hospital 2024-02-01 19:09:05 Received report from Radha BRICE, assuming care of patient. Critical access hospital 2024-02-01 17:08:49 Suicide Risk - Assessment and Plan [place]: 1) Have you wished you were or could go to sleep and not wake up?: (P) Yes 2) Have you had thoughts of killing yourself?: (P) Yes 3) Have you been thinking about how you might kill yourself?: (P) Yes 3a) Describe: (P) overdose 4) Suicidal ideation with some intent?: (P) Yes 5) Have you worked out the details of the plan AND intend to follow through?: (P) Yes 6) Suicidal Behavior or preparation for suicide?: (P) Yes 6a) Describe: (P) took xanax & meth today 6b) Was it in the past 3 months?: (P) Yes [place] Score: Suggested risk level: (P) High SAFE-T: Current and past psychiatric diagnoses: (P) Mood Disorder;Alcohol/substance abuse disorders Presenting symptoms: (P) Anhedonia;Hopelessness or despair Family history: (P) Other (see comments) (unknown) Activating Events: (P) Other (see comments) (mom , recently released from correction after 20 yrs) Precipitants / stressors: (P) Substance intoxication or withdrawal Protective factors: (P) Positive family/friend relationships Access to Lethal Means: Does patient have access to a gun or access to guns?: (P) Yes (but his took them away today) Specific Questions of Thoughts, Plans, Intent: Frequency- how many times have you had these thought?: (P) Daily or almost dailly 2.Duration - When you have the thoughts, how long do they last?: (P) More than 8 hours/persistent or continuous 3.Controllability - could/can you stop thinking about killing yourself or wanting to if you want to? "Is it easy, a little hard, very hard, or are you unable?": (P) Unable to control thoughts 4.Deterrents - are there things, anyone or anything (family, anglican, pain of ) that have stopped you from wanting to or acting on thoughts of committing suicide?: (P) Uncertain that deterrents stopped you Reasons for ideation - What are the reasons you have for wanting to or kill yourself? Was it to end pain, stop the way you are feeling, or to get attention, or get revenge and reaction from others?: (P) Mostly to end or stop the pain (could not go on living with the pain or how you were feeling) Behavior Assessment: 1.Were there preparatory acts like buying pills, guns, giving things away, or writing suicide note?: (P) No 2.Was an attempt aborted or self - interrupted?: (P) No 3.Was an attempt interrupted by someone else?: (P) Yes (by ) 4.Was there an actual attempt?: (P) Comments (unsure) 5.Is there non suicidal self injury? Cutting, biting, skin picking: (P) No 7.Is there homicidal ideation: if so, describe: (P) Yes Describe: (P) "thoughts of murder" Stratification: High Suicide Risk Moderate Suicide Risk Low Suicide Risk ?? Suicidal ideation with intent or intent with plan in past month (C-SSRS Suicidal Ideation #4 or #5) Or ?? Suicidal behavior within past 3 months (C-SSRS Suicidal Behavior) ?? Suicidal ideation with method, WITHOUT plan, intent or behavior in past month (C-SSRS Suicidal Ideation #3) Or ?? Suicidal behavior more than 3 months ago (C-SSRS Suicidal Behavior Lifetime) Or ?? Multiple risk factors and few protective factors ?? Wish to or Suicidal Ideation WITHOUT method, intent, plan or behavior (C-SSRS Suicidal Ideation #1 or #2) Or ?? Modifiable risk factors and strong protective factors Or ? No reported history of Suicidal Ideation or Behavior Location / Risk: Inpatient / High: Suicidal ideation with intent and with realistic plan and no protective factors in past month OR suicidal behavior within the past 3 months. Includes suicidal behavior as reason for admission. a. Mitigate the risk for suicide by instituting one-one monitoring, removing objects that pose a risk for self-harm, assessing objects brought into a room by visitors, using safe transportation procedures when moving patient to another part of the unit or another part of the hospital, and performing the checklist recommendations for a safe environment. b. Food tray in plastic or paper containers with plastic utensils (no knives or aluminum cans). c. Transfer to Inpatient Psychiatry facility/Psychiatry Consult once medically cleared. d. Follow-up determined by the inpatient Psychiatric facility. T [facility] 2024-02-01 16:42:06 Patient arrives via [facility] from [facility] with suicidal ideation. Patient reports having a lot going on in his life and is self-medicating with Xanax and Methamphetamine. Patient unsteady gait and falling asleep during triage Silvia Seals RN [facility] - Health 2024-02-01 16:40:00 [facility] Emergency Department Note Patient Name: Channing Calvert Date of : 1985 38 year old male Treatment Room: Room/bed info not found Primary Care Physician: Nina Mata Patient Escorted by: Self [9] [facility] [43] EMS Treatment Prior to ED Arrival: STORE MANAGER treatment: None Exam Limited by: none Travel and Exposure Screening: Symptoms Does patient have any of these symptoms?: (not recorded) Exposure Screening Has patient had contact with someone with a communicable disease in the last month?: (not recorded) Diseases exposed to:: (not recorded) Is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 Reports: Chest pain, Ear pain/ache. Free Text HPI Notes Free Text HPI Notes 34 y/o M w/ PMHx of HTN, asthma, bipolar disorder, schizophrenia MHMR presents to the ED w/ c/o non-productive cough onset 2 weeks ago. Pt mentions that he was intubated back on 07/15/19 after unknown drug overdose has had the cough since. Pt notes that he has not used any illicit drugs since being discharged. Pt also notes non-radiating CP w/ deep inspirations only, fever (Tmax - 100.1F), R jaw pain, R earache. Denies any abd pain. Portions of this section were scribed by Dax Rodriguez on 08/03/19 at 1709 Review of Systems ROS Statements All systems rev neg except as marked. Focused Review of Systems Constitutional Reports: Fever. Ears/Nose/Throat Reports: Earache R. Respiratory Reports: Cough, non-productive. GI Denies: Abdominal pain. Additional Review of Systems Cardiovascular Reports: Chest pain. Free Text ROS Notes Free Text ROS Notes reports R jaw pain Portions of this section were scribed by Dax Rodriguez on 08/03/19 at 1709 Past Medical History - Adult Stated Complaint DENTAL PAIN Allergies Coded Allergies: codeine (Intermediate, HIVES 07/06/18) diphenhydramine (From BENADRYL) (Intermediate, HIVES 07/06/18) Home Medications Reported Medications QUEtiapine (SEROquel) 50 MG PO BEDTIME FLUoxetine (PROzac) 40 MG PO DAILY DIVALPROEX DR (DEPAKOTE DR) 500 MG PO TID Past Medical History: Reports: Asthma, Hypertension. Additional Medical History bipolar disorder, schizophrenia, MR Alcohol Use Alcohol use Drug Use Marijuana Portions of this section were scribed by Dax Rodriguez on 08/03/19 at 1709 Physical Exam Vital Signs Vital Signs First Documented: Result Date Time Pulse Ox 98 08/03 1707 B/P 129/82 08/03 1707 B/P Mean 97 08/03 1707 O2 Delivery Room air 08/03 170 Temp 36.7 08/03 170 Pulse 82 08/03 170 Resp 18 08/03 1707 Last Documented: Result Date Time Pulse Ox 98 08/03 1707 B/P 129/82 08/03 1707 B/P Mean 97 08/03 170 O2 Delivery Room air 08/03 170 Temp 36.7 08/03 170 Pulse 82 08/03 1707 Resp 18 08/03 1707 Review of Vital Signs Reviewed Focused PE General/Const General/Const Awake, Alert, Cooperative, healthy appearing young male with multoiple facial and arm tattoos in NAD Eyes Eyes No periorbital redness, No periorbital swelling, Conjunctiva NL Ears/Nose/Throat Ears/Nose/Throat Airway patent, Mucous membranes moist, Pharynx NL, No trismus, No sinus tenderness, No facial swelling Text/Dict Notes R-sided gingival swelling, no fluctuance, dental caries present R-sided TM effusion erythema MS Neck Neck Supple, Full range of motion Resp/Chest Respiratory/Chest Breath sounds NL, No respiratory distress, No rales, No rhonchi, No wheezing Cardiovascular Cardiovascular Heart rate NL, Regular rhythm, Heart sounds NL Abdomen/GI Abdomen/GI Soft, Non-tender, No guarding, No rebound, No distention Skin Skin Warm, Dry, Intact Neurologic Neurologic Oriented X3, Speech NL Additional PE MS Head Head Atraumatic, Normocephalic MS Lower Extrem Lower Ext/Pelvis/MS No swelling, Non-tender, Neurologic intact, Vascular intact, No edema Psychiatric Psychiatric Affect NL, Mood NL, slightly delayed in conversation but appropriate and fully alert and oriented Portions of this section were scribed by Dax Rodriguez on 08/03/19 at 1709 Interpretation Diagnostics Lab Results Interpretation Results Laboratory Tests 08/03/191716: [Embedded Image Not Available] Laboratory Tests: 08/03 1717 Chemistry Sodium (134 - 147 mEq/L) 138 Potassium (3.4 - 5.0 mEq/L) 4.2 Chloride (100 - 108 mEq/L) 107 Carbon Dioxide (21 - 33 mEq/L) 26 Anion Gap (0 - 20) 9 BUN (7 - 18 mg/dL) 12 Creatinine (0.6 - 1.3 mg/dL) 0.8 Glomerular Filtr Rate (105 - 110) 110.0 Glucose (70 - 110 mg/dL) 89 Calcium (8.0 - 10.5 mg/dL) 8.8 Total Bilirubin (<1.5 MG/DL) 0.5 AST (15 - 37 IUnit/L) 19 ALT (15 - 65 IUnit/L) 27 Total Alk Phosphatase (20 - 125 IUnit/L) 78 Troponin I (0.000 - 0.045 ng/mL) < 0.015 Total Protein (6.4 - 8.2 g/dL) 7.3 Albumin (3.4 - 5.0 g/dL) 4.10 Lipase (73 - 393 IUnit/L) 100 Coagulation D-Dimer (<=500 ng/mlFEU) 227 Hematology WBC (4.5 - 11.0 x10 3/uL) 6.79 RBC (4.00 - 5.60 x10 6/uL) 5.28 Hgb (12.5 - 16.9 g/dL) 15.7 Hct (37.5 - 50.7 %) 45.7 MCV (81.0 - 99.0 fL) 86.6 MCH (27.0 - 33.0 pg) 29.7 MCHC (33.0 - 37.0 g/dL) 34.4 RDW (11.5 - 14.5 %) 12.3 Plt Count (150 - 400 x10 3/uL) 208 MPV (7.0 - 9.0 fL) 12.0 H Neut % (Auto) (56.0 - 77.0 %) 48.7 L Lymph % (Auto) (14.0 - 32.0 %) 39.2 H Chester % (Auto) (4.8 - 9.0 %) 7.1 Eos % (Auto) (0.3 - 3.7 %) 3.7 Baso % (Auto) (0.0 - 2.0 %) 0.9 Neut # (Auto) (2.0 - 7.6 x10 3/uL) 3.31 Lymph # (Auto) (1.0 - 3.8 x10 3/uL) 2.66 Chester # (Auto) (0.1 - 0.8 x10 3/uL) 0.48 Eos # (Auto) (0.0 - 0.2 x10 3/uL) 0.25 H Baso # (Auto) (0.0 - 0.2 x10 3/uL) 0.06 Abs Immat Gran (auto) (0.00 - 0.03 x10 3/uL) 0.03 Add Manual Diff NO Immature Gran % (0.0 - 2.0 %) 0.4 Nucleated RBC % (0 - 0 %) 0.0 Nucleated RBCs # (Man) (0.0 - 0.1 x10 3/uL) 0.00 Recent Impressions: RADIOLOGY - XR CHEST 2 V 08/03 174 Report Impression - Status: SIGNED Entered: 08/03/2019 1757 Impression: Chest, 2 views. Lungs are clear. No consolidation, pleural effusion, or pneumothorax. Cardiomediastinal silhouette is unremarkable. No acute osseous abnormality. SL: [id number] Impression By: [email or web address] - Liss Marcial M.D. Lab Imaging Statement Laboratory radiographic studies reviewed and considered in the medical decision-making. Point of Care Testing Pulse Oximetry Pulse Ox % 98 On: Room air Interpretation Interpreted by me, Pulse oximetry normal Time 1707 ECG #1 Interpretation ECG Documented in MUSE Yes Date 08/03/19 Time 1738 Interpreted by ED physician NL ECG Interpretation Normal rate, Normal sinus rhythm, No acute ischemic changes, No STEMI, early repol present Rate 56 Rhythm Bradycardia Portions of this section were scribed by Dax Rodriguez on 08/03/19 at 1709 Re-Evaluation MDM Free Text MDM Notes Free Text MDM Notes acs work up without acute findings, negative d dimer suspect viral uri with cough vs RAD pt with acute gingivitis with caries of teeth Re-Evaluation/Progress Re-Evaluation/Progress Text/Dict Note PAIN IMPROVED denies SOB or CP Time of Re-Eval 1812 Re-Eval Status Improved ED Course Medication(s) Ordered Medication(s) Ordered: Anti-Infective Agents Sig/Geraldine Start time Last Medication Dose Route Stop Time Status Admin Amoxicillin/ 875 MG X1ED STA 08/03 1709 DC 08/03 Clavulanate Potassium PO 08/03 1710 171 Central Nervous System Agents Sig/Geraldine Start time Last Medication Dose Route Stop Time Status Admin Acetaminophen 975 MG X1ED STA 08/03 1709 DC 08/03 PO 08/03 171 171 Patient Discharge Departure Vital Signs/Condition Vital Signs First Documented: Result Date Time Pulse Ox 98 08/03 1707 B/P 129/82 08/03 1707 B/P Mean 97 08/03 1707 O2 Delivery Room air 08/03 1707 Temp 36.7 08/03 170 Pulse 82 08/03 1707 Resp 18 08/03 1707 Last Documented: Result Date Time Pulse Ox 98 08/03 1707 B/P 129/82 08/03 1707 B/P Mean 97 08/03 1707 O2 Delivery Room air 08/03 1707 Temp 36.7 08/03 170 Pulse 82 08/03 1707 Resp 18 08/03 1707 All vital signs available at the time of this entry have been reviewed. Clinical Impression Clinical Impression Primary Impression: Cough Secondary Impressions: Asthma, Gingivitis, Middle ear effusion Disposition Decision Discharge )( Discharged to Home Yes )( Time 1812 )( Date 08/03/19 Discharge/Care Plan Counseled Regarding Diagnosis, Lab results, Imaging studies, Prescriptions, When to return to ED Prescriptions augmentin albuterol Supervising Physician Note Scribe Statement Dax Rodriguez, 08/03/191708, scribing for and in the presence of [SIMON Sims]. Signed By: Dax Rodriguez, 08/03/191708 Provider Scribed Statement I personally performed the services described in this documentation and reviewed the documentation that was dictated to the scribe(s) in my presence, and it accurately records my words and actions. Oscar Phan, 08/03/19 Portions of this section were scribed by Dax Rodriguez on 08/03/19 at 1709 at 1842 RPT #:[id number] END OF REPORT [facility] 2019-08-03 17:09:00 [facility] ([facility]) EMERGENCY PROVIDER REPORT REPORT#:[id number] REPORT STATUS: Signed DATE:08/03/19 TIME: 1708 PATIENT: CHANNING CALVERT UNIT #: [id number] ROOM/BED: AGE: 34 SEX: M PCP PHYS: No Primary or Family Physician SERVICE AUTHOR: Oscar Phan * ALL edits or amendments must be made on the electronic/computer document * Oscar Phan 08/03/19 1709: HPI-URI/Cough/Cold General Confirmed Patient Yes Presentation Chief Complaint Cough, non-productive Hx Obtained From Patient Onset Occurred Weeks ago (2) Symptom Duration Since onset Progression since Onset Unchanged Associated with Reports: Chest pain, Ear pain/ache. Free Text HPI Notes Free Text HPI Notes 34 y/o M w/ PMHx of HTN, asthma, bipolar disorder, schizophrenia MHMR presents to the ED w/ c/o non-productive cough onset 2 weeks ago. Pt mentions that he was intubated back on 07/15/19 after unknown drug overdose has had the cough since. Pt notes that he has not used any illicit drugs since being discharged. Pt also notes non-radiating CP w/ deep inspirations only, fever (Tmax - 100.1F), R jaw pain, R earache. Denies any abd pain. Portions of this section were scribed by Dax Rodriguez on 08/03/19 at 1709 Review of Systems ROS Statements All systems rev neg except as marked. Focused Review of Systems Constitutional Reports: Fever. Ears/Nose/Throat Reports: Earache R. Respiratory Reports: Cough, non-productive. GI Denies: Abdominal pain. Additional Review of Systems Cardiovascular Reports: Chest pain. Free Text ROS Notes Free Text ROS Notes reports R jaw pain Portions of this section were scribed by Dax Rodriguez on 08/03/19 at 1709 Past Medical History - Adult Stated Complaint DENTAL PAIN Allergies Coded Allergies: codeine (Intermediate, HIVES 07/06/18) diphenhydramine (From BENADRYL) (Intermediate, HIVES 07/06/18) Home Medications Reported Medications QUEtiapine (SEROquel) 50 MG PO BEDTIME FLUoxetine (PROzac) 40 MG PO DAILY DIVALPROEX DR (DEPAKOTE DR) 500 MG PO TID Past Medical History: Reports: Asthma, Hypertension. Additional Medical History bipolar disorder, schizophrenia, MR Alcohol Use Alcohol use Drug Use Marijuana Portions of this section were scribed by Dax Rodriguez on 08/03/19 at 1709 Physical Exam Vital Signs Vital Signs First Documented: Result Date Time Pulse Ox 98 08/03 1707 B/P 129/82 08/03 1707 B/P Mean 97 08/03 1707 O2 Delivery Room air 08/03 1707 Temp 36.7 08/03 1707 Pulse 82 08/03 1707 Resp 18 08/03 1707 Last Documented: Result Date Time Pulse Ox 98 08/03 1849 B/P 121/79 08/03 1849 B/P Mean 93 08/03 1849 O2 Delivery Room air 08/03 1849 Temp 37.0 08/03 1849 Pulse 89 08/03 1849 Resp 18 08/03 1849 Review of Vital Signs Reviewed Focused PE General/Const General/Const Awake, Alert, Cooperative, healthy appearing young male with multoiple facial and arm tattoos in NAD Eyes Eyes No periorbital redness, No periorbital swelling, Conjunctiva NL Ears/Nose/Throat Ears/Nose/Throat Airway patent, Mucous membranes moist, Pharynx NL, No trismus, No sinus tenderness, No facial swelling Text/Dict Notes R-sided gingival swelling, no fluctuance, dental caries present R-sided TM effusion erythema MS Neck Neck Supple, Full range of motion Resp/Chest Respiratory/Chest Breath sounds NL, No respiratory distress, No rales, No rhonchi, No wheezing Cardiovascular Cardiovascular Heart rate NL, Regular rhythm, Heart sounds NL Abdomen/GI Abdomen/GI Soft, Non-tender, No guarding, No rebound, No distention Skin Skin Warm, Dry, Intact Neurologic Neurologic Oriented X3, Speech NL Additional PE MS Head Head Atraumatic, Normocephalic MS Lower Extrem Lower Ext/Pelvis/MS No swelling, Non-tender, Neurologic intact, Vascular intact, No edema Psychiatric Psychiatric Affect NL, Mood NL, slightly delayed in conversation but appropriate and fully alert and oriented Portions of this section were scribed by Dax Rodriguez on 08/03/19 at 1709 Interpretation Diagnostics Lab Results Interpretation Results Laboratory Tests 08/03/191716: [Embedded Image Not Available] Laboratory Tests: 08/03 1717 Chemistry Sodium (134 - 147 mEq/L) 138 Potassium (3.4 - 5.0 mEq/L) 4.2 Chloride (100 - 108 mEq/L) 107 Carbon Dioxide (21 - 33 mEq/L) 26 Anion Gap (0 - 20) 9 BUN (7 - 18 mg/dL) 12 Creatinine (0.6 - 1.3 mg/dL) 0.8 Glomerular Filtr Rate (105 - 110) 110.0 Glucose (70 - 110 mg/dL) 89 Calcium (8.0 - 10.5 mg/dL) 8.8 Total Bilirubin (<1.5 MG/DL) 0.5 AST (15 - 37 IUnit/L) 19 ALT (15 - 65 IUnit/L) 27 Total Alk Phosphatase (20 - 125 IUnit/L) 78 Troponin I (0.000 - 0.045 ng/mL) < 0.015 Total Protein (6.4 - 8.2 g/dL) 7.3 Albumin (3.4 - 5.0 g/dL) 4.10 Lipase (73 - 393 IUnit/L) 100 Coagulation D-Dimer (<=500 ng/mlFEU) 227 Hematology WBC (4.5 - 11.0 x10 3/uL) 6.79 RBC (4.00 - 5.60 x10 6/uL) 5.28 Hgb (12.5 - 16.9 g/dL) 15.7 Hct (37.5 - 50.7 %) 45.7 MCV (81.0 - 99.0 fL) 86.6 MCH (27.0 - 33.0 pg) 29.7 MCHC (33.0 - 37.0 g/dL) 34.4 RDW (11.5 - 14.5 %) 12.3 Plt Count (150 - 400 x10 3/uL) 208 MPV (7.0 - 9.0 fL) 12.0 H Neut % (Auto) (56.0 - 77.0 %) 48.7 L Lymph % (Auto) (14.0 - 32.0 %) 39.2 H Chester % (Auto) (4.8 - 9.0 %) 7.1 Eos % (Auto) (0.3 - 3.7 %) 3.7 Baso % (Auto) (0.0 - 2.0 %) 0.9 Neut # (Auto) (2.0 - 7.6 x10 3/uL) 3.31 Lymph # (Auto) (1.0 - 3.8 x10 3/uL) 2.66 Chester # (Auto) (0.1 - 0.8 x10 3/uL) 0.48 Eos # (Auto) (0.0 - 0.2 x10 3/uL) 0.25 H Baso # (Auto) (0.0 - 0.2 x10 3/uL) 0.06 Abs Immat Gran (auto) (0.00 - 0.03 x10 3/uL) 0.03 Add Manual Diff NO Immature Gran % (0.0 - 2.0 %) 0.4 Nucleated RBC % (0 - 0 %) 0.0 Nucleated RBCs # (Man) (0.0 - 0.1 x10 3/uL) 0.00 Recent Impressions: RADIOLOGY - XR CHEST 2 V 08/03 1741 Report Impression - Status: SIGNED Entered: 08/03/20191756 Impression: Chest, 2 views. Lungs are clear. No consolidation, pleural effusion, or pneumothorax. Cardiomediastinal silhouette is unremarkable. No acute osseous abnormality. SL: [id number] Impression By: [email or web address] - Liss Marcial M.D. Lab Imaging Statement Laboratory radiographic studies reviewed and considered in the medical decision-making. Point of Care Testing Pulse Oximetry Pulse Ox % 98 On: Room air Interpretation Interpreted by me, Pulse oximetry normal Time 1707 ECG #1 Interpretation ECG Documented in MUSE Yes Date 08/03/19 Time 1738 Interpreted by ED physician NL ECG Interpretation Normal rate, Normal sinus rhythm, No acute ischemic changes, No STEMI, early repol present Rate 56 Rhythm Bradycardia Portions of this section were scribed by Dax Rodriguez on 08/03/19 at 1709 Re-Evaluation MDM Free Text MDM Notes Free Text MDM Notes acs work up without acute findings, negative d dimer suspect viral uri with cough vs RAD pt with acute gingivitis with caries of teeth Re-Evaluation/Progress Re-Evaluation/Progress Text/Dict Note PAIN IMPROVED denies SOB or CP Time of Re-Eval 1812 Re-Eval Status Improved ED Course Medication(s) Ordered Medication(s) Ordered: Anti-Infective Agents Sig/Geraldine Start time Last Medication Dose Route Stop Time Status Admin Amoxicillin/ 875 MG X1ED STA 08/03 1709 DC 08/03 Clavulanate Potassium PO 08/03 1710 171 Central Nervous System Agents Sig/Geraldine Start time Last Medication Dose Route Stop Time Status Admin Acetaminophen 975 MG X1ED STA 08/03 170 DC 08/03 PO 08/03 1710 171 Patient Discharge Departure Vital Signs/Condition Vital Signs First Documented: Result Date Time Pulse Ox 98 08/03 1707 B/P 129/82 08/03 1707 B/P Mean 97 08/03 1707 O2 Delivery Room air 08/03 1707 Temp 36.7 08/03 1707 Pulse 82 08/03 1707 Resp 18 08/03 1707 Last Documented: Result Date Time Pulse Ox 98 08/03 184 B/P 121/79 08/03 184 B/P Mean 93 08/03 1849 O2 Delivery Room air 08/03 1849 Temp 37.0 08/03 1849 Pulse 89 08/03 1849 Resp 18 08/03 1849 All vital signs available at the time of this entry have been reviewed. Clinical Impression Clinical Impression Primary Impression: Cough Secondary Impressions: Asthma, Gingivitis, Middle ear effusion Disposition Decision Discharge )( Discharged to Home Yes )( Time 1812 )( Date 08/03/19 Discharge/Care Plan Counseled Regarding Diagnosis, Lab results, Imaging studies, Prescriptions, When to return to ED Prescriptions augmentin albuterol Supervising Physician Note Scribe Statement Dax Rodriguez, 08/03/191708, scribing for and in the presence of [SIMON Sims]. Signed By: Dax Rodriguez, 08/03/191708 Provider Scribed Statement I personally performed the services described in this documentation and reviewed the documentation that was dictated to the scribe(s) in my presence, and it accurately records my words and actions. Oscar Phan, 08/03/19 Portions of this section were scribed by Dax Rodriguez on 08/03/19 at 1709 Bairon Harding 08/04/192001: HPI-URI/Cough/Cold General Initial Greet Date/Time 08/03/19 1656 Patient Discharge Departure Supervising Physician Note MidLv Saw Pt Alone I have reviewed the PA/SENIOR BENEFITS MANAGER's note and plan of care. I was available for consultation as needed at all times during the patient's visit in the emergency department. I agree with the clinical impression, plan and disposition. at 1842 at 2001 RPT #:[id number] END OF REPORT [facility] 2019-02-24 23:52:00 [facility] ([facility] EMERGENCY PROVIDER REPORT REPORT#:[id number] REPORT STATUS: Signed DATE:02/24/19 TIME: 2351 PATIENT: CHANNING CALVERT UNIT #: [id number] ROOM/BED: AGE: 34 SEX: M PCP PHYS: No Primary or Family Physician SERVICE AUTHOR: Meenakshi Bangura MD * ALL edits or amendments must be made on the electronic/computer document * HPI-Ingestion FB General Confirmed Patient Yes Initial Greet Date/Time 02/24/19 2306 Presentation Chief Complaint EtOH intoxication, smoked "wet" Hx Obtained From Verifying Machine Operator Onset Occurred Today Symptom Duration Since onset Progression since Onset Unchanged Quality Uncomfortable Free Text HPI Notes Free Text HPI Notes 34 y/o M with PMHx of bipolar disorder, schizophrenia, and MHMR, presents to the ED d/t EtOH intoxication, and smoking "wet" STORE MANAGER. Pt states he drank, "a bunch" of EtOH tonight. Per EMS, pt was sending text messages to his girlfriend stating he does not want to live after his girlfriend was "messing with my babies," per pt. Pt not currently in custody. Pt is not compliant with psych medications. Of note, pt has HI hx in the past. HPI and ROS limited due to pt being uncooperative. Pt seen in the [facility]. Portions of this section were scribed by Geovani Kelley on 02/25/19 at 0213 Review of Systems ROS Statements Unable to Obtain ROS Uncooperative Portions of this section were scribed by Geovani Kelley on 02/24/19 at 2356 Past Medical History - Adult Stated Complaint UNKNOWN, "POSSIBLE SI" PER EMS Allergies Coded Allergies: codeine (Intermediate, HIVES 07/06/18) diphenhydramine (From BENADRYL) (Intermediate, HIVES 07/06/18) Home Medications Reported Medications No Known Home Medications Review of Nursing Notes Rev avail, and agree Unable to Obtain Past surgical history Unobtainable due to: Uncooperative Additional Medical History bipolar disorder, schizophrenia, MHMR Alcohol Use Alcohol use Drug Use Marijuana Smoking status for patients 13 years old or older: Current every day smoker Portions of this section were scribed by Geovani Kelley on 02/24/19 at 2356 Physical Exam Vital Signs Vital Signs First Documented: Result Date Time Pulse Ox 100 02/24 230 B/P 153/100 02/24 2307 B/P Mean 117 02/247 O2 Delivery Room air 02/24 2307 Temp 36.8 02/24 2307 Pulse 104 02/24 230 Resp 14 02/24 2307 Last Documented: Result Date Time Pulse Ox 98 02/25 0500 B/P 142/92 02/25 0500 B/P Mean 108 02/25 0500 O2 Delivery Room air 02/25 0500 Temp 35.6 02/25 0500 Pulse 62 02/25 0500 Resp 18 02/25 0500 Review of Vital Signs Reviewed, Vital signs abnormal (Elevated BP) Focused PE General/Const General/Const Awake, Alert, Well developed Text/Dict Notes Uncooperative. EtOH on breath. Ears/Nose/Throat Ears/Nose/Throat Airway patent, Mucous membranes moist MS Neck Neck Supple, Full range of motion, No swelling, Non-tender Resp/Chest Respiratory/Chest Breath sounds NL, Breath sounds = bilat, No respiratory distress, No wheezing Cardiovascular Cardiovascular Heart rate NL, Regular rhythm, Heart sounds NL, Pulses = bilaterally Abdomen/GI Abdomen/GI Soft, Non-tender, No guarding, No rebound, No distention Additional PE Skin Skin No rash, Warm, Dry, Intact, No swelling Text/Dict Notes Multiple tattoos including the face. Neurologic Neurologic No motor deficits, No sensory deficits Speech Slurred. Portions of this section were scribed by Geovani Kelley on 02/25/19 at 0003 Interpretation Diagnostics Lab Results Interpretation Results Laboratory Tests 02/25/19 010: [Embedded Image Not Available] Laboratory Tests: 02/25 0100 Chemistry Sodium (134.0 - 147.0 mmol/l) 139 Potassium (3.6 - 5.2 mmol/L) 4.3 Chloride (98.0 - 107.0 mmol/l) 104 Carbon Dioxide (21.0 - 33.0 mmol/l) 28.4 Anion Gap (0 - 20) 10.9 BUN (7.0 - 18.0 mg/dl) 12 Creatinine (0.60 - 1.30 mg/dL) 0.92 Est GFR ( Amer) (127 - 133 mL/min) 120 L Est GFR (Non-Af Amer) (105 - 110 mL/min) 99 L Glucose (70.0 - 110.0 mg/dl) 90 Calcium (8.0 - 10.5 mg/dl) 8.5 Total Bilirubin (0.0 - 1.0 mg/dl) 0.8 AST (15.0 - 37.0 Units/L) 22 ALT (12.0 - 78.0 Units/L) 20 Total Alk Phosphatase (50.0 - 136.0 Units/L) 61 Total Protein (6.0 - 8.1 GM/DL) 7.2 Albumin (3.2 - 4.7 gm/dL) 4.0 Hematology WBC (4.5 - 11.0 K/mm3) 13.8 H RBC (4.40 - 5.90 M/mm3) 5.46 Hgb (13.0 - 17.0 gm/dL) 16.0 Hct (36.0 - 48.0 %) 47.3 MCV (80.0 - 94.0 UM3) 86.6 MCH (25.5 - 32.5 UUG) 29.3 MCHC (29.0 - 35.5 gm/dL) 33.8 RDW (11.5 - 15.0 %) 12.9 Plt Count (150 - 400 K/mm3) 226 MPV (7.4 - 10.4 fl) 11.5 H Neut % (Auto) (49.0 - 76.0 %) 77.5 H Lymph % (Auto) (23.0 - 38.0 %) 14.1 L Chester % (Auto) (1.0 - 10.0 %) 7.4 Eos % (Auto) (1.0 - 5.0 %) 0.1 L Baso % (Auto) (0.0 - 1.0 %) 0.4 Neut # (Auto) (2.4 - 6.3 K/mm3) 10.7 H Lymph # (Auto) (1.2 - 4.0 K/mm3) 2.0 Chester # (Auto) (0.0 - 0.6 K/mm3) 1.0 H Eos # (Auto) (0.0 - 0.7 K/MM3) 0.0 Baso # (Auto) (0.0 - 0.2 K/mm3) 0.1 Immature Gran % (0.0 - 0.4 %) 0.5 H Immature Gran # (0.00 - 0.07 x10 3/uL) 0.07 Toxicology Urine Opiates Screen (NEGATIVE) NEGATIVE Urine Methadone Screen (NEGATIVE) NEGATIVE Urine Barbiturates (NEGATIVE) NEGATIVE Ur Phencyclidine Scrn (NEGATIVE) POSITIVE H Ur Amphetamines Screen (NEGATIVE) NEGATIVE U Benzodiazepines Scrn (NEGATIVE) NEGATIVE Urine Cocaine Screen (NEGATIVE) NEGATIVE Urine Cannabinoids (NEGATIVE) POSITIVE H Ethyl Alcohol (0.00 - 0.00 gm/dL) 0.00 Lab Statement Laboratory studies reviewed and considered in the medical decision-making. Point of Care Testing Pulse Oximetry Pulse Ox % 100 On: Room air Interpretation Interpreted by nh, Pulse oximetry normal Time 2307 Lab Studies Drug Screen/Level Drug Screen Interpretation Drug screen reviewed Portions of this section were scribed by Geovani Kelley on 02/25/19 at 0213 Re-Evaluation MDM Re-Evaluation/Progress Re-Evaluation/Progress Time of Re-Eval 4 Re-Eval Status Cleared for psych transfer ED Course Medication(s) Ordered Medication(s) Ordered: Central Nervous System Agents Sig/Geraldine Start time Last Medication Dose Route Stop Time Status Admin Lorazepam 2 MG ED Q2H PRN PRN 02/24 2330 AC IM 02/25 2226 Portions of this section were scribed by Geovani Kelley on 02/25/19 at 0213 Patient Discharge Departure Vital Signs/Condition Vital Signs First Documented: Result Date Time Pulse Ox 100 02/24 2307 B/P 153/100 02/24 2307 B/P Mean 117 02/24 2307 O2 Delivery Room air 02/24 2307 Temp 36.8 02/24 2307 Pulse 104 02/24 2307 Resp 14 02/24 2307 Last Documented: Result Date Time Pulse Ox 98 02/25 0500 B/P 142/92 02/25 0500 B/P Mean 108 02/25 0500 O2 Delivery Room air 02/25 050 Temp 35.6 02/25 0500 Pulse 62 02/25 0500 Resp 18 02/25 0500 All vital signs available at the time of this entry have been reviewed. Condition Improved Clinical Impression Clinical Impression Primary Impression: PCP (phencyclidine) abuse Secondary Impressions: Marijuana abuse, Suicidal ideation Disposition Decision Transfer )( Request Time 213 )( Request Date 02/25/19 [facility] transfer Discharge/Care Plan Counseled Regarding Diagnosis, Lab results Quality Measures Smoking Cessation Screened, non user Tobacco Screening/Cessation 18 years or older, Denies tobacco use Supervising Physician Note Scribe Statement Geovani Kelley, 02/24/192358, scribing for and in the presence of Dr. Bangura. Signed By: Geovani Kelley, 02/24/192358 Provider Scribed Statement I personally performed the services described in this documentation and reviewed the documentation that was dictated to the scribe(s) in my presence, and it accurately records my words and actions. Meenakshi Bangura, 02/25/19 Portions of this section were scribed by Geovani Kelley on 02/25/19 at 0213 at 0601 RPT #:[id number] END OF REPORT [facility] 2019-02-24 23:52:00 [facility] ([facility] EMERGENCY PROVIDER REPORT REPORT#:[id number] REPORT STATUS: Signed DATE:02/24/19 TIME: 2351 PATIENT: CHANNING CALVERT UNIT #: [id number] ROOM/BED: AGE: 34 SEX: M PCP PHYS: No Primary or Family Physician SERVICE AUTHOR: Meenakshi Bangura MD * ALL edits or amendments must be made on the electronic/computer document * See Addendum HPI-Ingestion FB General Confirmed Patient Yes Initial Greet Date/Time 02/24/192305 Presentation Chief Complaint EtOH intoxication, smoked "wet" Hx Obtained From Verifying Machine Operator Onset Occurred Today Symptom Duration Since onset Progression since Onset Unchanged Quality Uncomfortable Free Text HPI Notes Free Text HPI Notes 34 y/o M with PMHx of bipolar disorder, schizophrenia, and MHMR, presents to the ED d/t EtOH intoxication, and smoking "wet" STORE MANAGER. Pt states he drank, "a bunch" of EtOH tonight. Per EMS, pt was sending text messages to his girlfriend stating he does not want to live after his girlfriend was "messing with my babies," per pt. Pt not currently in custody. Pt is not compliant with psych medications. Of note, pt has HI hx in the past. HPI and ROS limited due to pt being uncooperative. Pt seen in the [facility]. Portions of this section were scribed by Geovani Kelley on 02/25/19 at 0213 Review of Systems ROS Statements Unable to Obtain ROS Uncooperative Portions of this section were scribed by Geovani Kelley on 02/24/19 at 2356 Past Medical History - Adult Stated Complaint UNKNOWN, "POSSIBLE SI" PER EMS Allergies Coded Allergies: codeine (Intermediate, HIVES 07/06/18) diphenhydramine (From BENADRYL) (Intermediate, HIVES 07/06/18) Home Medications Reported Medications No Known Home Medications Review of Nursing Notes Rev avail, and agree Unable to Obtain Past surgical history Unobtainable due to: Uncooperative Additional Medical History bipolar disorder, schizophrenia, MHMR Alcohol Use Alcohol use Drug Use Marijuana Smoking status for patients 13 years old or older: Current every day smoker Portions of this section were scribed by Geovani Kelley on 02/24/19 at 2356 Physical Exam Vital Signs Vital Signs First Documented: Result Date Time Pulse Ox 100 02/24 2307 B/P 153/100 02/24 2307 B/P Mean 117 02/24 2307 O2 Delivery Room air 02/24 2307 Temp 36.8 02/24 2307 Pulse 104 02/24 2307 Resp 14 02/24 2307 Last Documented: Result Date Time Pulse Ox 98 04/27 0500 B/P 142/92 02/25 500 B/P Mean 108 02/25 500 O2 Delivery Room air 02/25 500 Temp 35.6 02/25 500 Pulse 62 02/25 500 Resp 18 02/25 500 Review of Vital Signs Reviewed, Vital signs abnormal (Elevated BP) Focused PE General/Const General/Const Awake, Alert, Well developed Text/Dict Notes Uncooperative. EtOH on breath. Ears/Nose/Throat Ears/Nose/Throat Airway patent, Mucous membranes moist MS Neck Neck Supple, Full range of motion, No swelling, Non-tender Resp/Chest Respiratory/Chest Breath sounds NL, Breath sounds = bilat, No respiratory distress, No wheezing Cardiovascular Cardiovascular Heart rate NL, Regular rhythm, Heart sounds NL, Pulses = bilaterally Abdomen/GI Abdomen/GI Soft, Non-tender, No guarding, No rebound, No distention Additional PE Skin Skin No rash, Warm, Dry, Intact, No swelling Text/Dict Notes Multiple tattoos including the face. Neurologic Neurologic No motor deficits, No sensory deficits Speech Slurred. Portions of this section were scribed by Geovani Kelley on 02/25/19 at 0003 Interpretation Diagnostics Lab Results Interpretation Results Laboratory Tests 02/25/19 0100: [Embedded Image Not Available] Laboratory Tests: 02/25 0100 Chemistry Sodium (134.0 - 147.0 mmol/l) 139 Potassium (3.6 - 5.2 mmol/L) 4.3 Chloride (98.0 - 107.0 mmol/l) 104 Carbon Dioxide (21.0 - 33.0 mmol/l) 28.4 Anion Gap (0 - 20) 10.9 BUN (7.0 - 18.0 mg/dl) 12 Creatinine (0.60 - 1.30 mg/dL) 0.92 Est GFR ( Amer) (127 - 133 mL/min) 120 L Est GFR (Non-Af Amer) (105 - 110 mL/min) 99 L Glucose (70.0 - 110.0 mg/dl) 90 Calcium (8.0 - 10.5 mg/dl) 8.5 Total Bilirubin (0.0 - 1.0 mg/dl) 0.8 AST (15.0 - 37.0 Units/L) 22 ALT (12.0 - 78.0 Units/L) 20 Total Alk Phosphatase (50.0 - 136.0 Units/L) 61 Total Protein (6.0 - 8.1 GM/DL) 7.2 Albumin (3.2 - 4.7 gm/dL) 4.0 Hematology WBC (4.5 - 11.0 K/mm3) 13.8 H RBC (4.40 - 5.90 M/mm3) 5.46 Hgb (13.0 - 17.0 gm/dL) 16.0 Hct (36.0 - 48.0 %) 47.3 MCV (80.0 - 94.0 UM3) 86.6 MCH (25.5 - 32.5 UUG) 29.3 MCHC (29.0 - 35.5 gm/dL) 33.8 RDW (11.5 - 15.0 %) 12.9 Plt Count (150 - 400 K/mm3) 226 MPV (7.4 - 10.4 fl) 11.5 H Neut % (Auto) (49.0 - 76.0 %) 77.5 H Lymph % (Auto) (23.0 - 38.0 %) 14.1 L Chester % (Auto) (1.0 - 10.0 %) 7.4 Eos % (Auto) (1.0 - 5.0 %) 0.1 L Baso % (Auto) (0.0 - 1.0 %) 0.4 Neut # (Auto) (2.4 - 6.3 K/mm3) 10.7 H Lymph # (Auto) (1.2 - 4.0 K/mm3) 2.0 Chester # (Auto) (0.0 - 0.6 K/mm3) 1.0 H Eos # (Auto) (0.0 - 0.7 K/MM3) 0.0 Baso # (Auto) (0.0 - 0.2 K/mm3) 0.1 Immature Gran % (0.0 - 0.4 %) 0.5 H Immature Gran # (0.00 - 0.07 x10 3/uL) 0.07 Toxicology Urine Opiates Screen (NEGATIVE) NEGATIVE Urine Methadone Screen (NEGATIVE) NEGATIVE Urine Barbiturates (NEGATIVE) NEGATIVE Ur Phencyclidine Scrn (NEGATIVE) POSITIVE H Ur Amphetamines Screen (NEGATIVE) NEGATIVE U Benzodiazepines Scrn (NEGATIVE) NEGATIVE Urine Cocaine Screen (NEGATIVE) NEGATIVE Urine Cannabinoids (NEGATIVE) POSITIVE H Ethyl Alcohol (0.00 - 0.00 gm/dL) 0.00 Lab Statement Laboratory studies reviewed and considered in the medical decision-making. Point of Care Testing Pulse Oximetry Pulse Ox % 100 On: Room air Interpretation Interpreted by me Pulse oximetry normal Time 2307 Lab Studies Drug Screen/Level Drug Screen Interpretation Drug screen reviewed Portions of this section were scribed by Geovani Kelley on 02/25/19 at 0213 Re-Evaluation MDM Re-Evaluation/Progress Re-Evaluation/Progress Time of Re-Eval 0214 Re-Eval Status Cleared for psych transfer ED Course Medication(s) Ordered Medication(s) Ordered: Central Nervous System Agents Sig/Geraldine Start time Last Medication Dose Route Stop Time Status Admin Lorazepam 2 MG ED Q2H PRN PRN 02/24 2330 AC IM 02/256 Portions of this section were scribed by Geovani Kelley on 02/25/19 at 0213 Patient Discharge Departure Vital Signs/Condition Vital Signs First Documented: Result Date Time Pulse Ox 100 02/24 2307 B/P 153/100 02/24 2307 B/P Mean 117 02/24 2307 O2 Delivery Room air 02/24 2307 Temp 36.8 02/24 230 Pulse 104 02/24 2307 Resp 14 02/24 230 Last Documented: Result Date Time Pulse Ox 98 02/25 0500 B/P 142/92 02/25 0500 B/P Mean 108 02/25 0500 O2 Delivery Room air 02/25 0500 Temp 35.6 02/25 0500 Pulse 62 02/25 0500 Resp 18 02/25 0500 All vital signs available at the time of this entry have been reviewed. Condition Improved Clinical Impression Clinical Impression Primary Impression: PCP (phencyclidine) abuse Secondary Impressions: Marijuana abuse, Suicidal ideation Disposition Decision Transfer )( Request Time 213 )( Request Date 02/25/19 [facility] Psych transfer Discharge/Care Plan Counseled Regarding Diagnosis, Lab results Quality Measures Smoking Cessation Screened, non user Tobacco Screening/Cessation 18 years or older, Denies tobacco use Supervising Physician Note Scribe Statement Geovani Kelley, 02/24/19 0538, scribing for and in the presence of Dr. Bangura. Signed By: Geovani Kelley, 02/24/19 2359 Provider Scribed Statement I personally performed the services described in this documentation and reviewed the documentation that was dictated to the scribe(s) in my presence, and it accurately records my words and actions. Meenakshi Bangura, 02/25/19 Portions of this section were scribed by Geovani Kelley on 02/25/19 at 0213 at 0601 Addendum 1: 02/25/19804 by Yohana Pittman MD PT SLEEPING, NO DISTRESS, VSS, SITTER AT BEDSIDE, WAITING FOR PLACEMENT at 0805 RPT #:[id number] END OF REPORT [facility] 2019-02-24 23:52:00 [facility] ([facility]) EMERGENCY PROVIDER REPORT REPORT#:[id number] REPORT STATUS: Signed DATE:02/24/19 TIME: 2351 PATIENT: CHANNING CALVERT UNIT #: [id number] ROOM/BED: AGE: 34 SEX: M PCP PHYS: No Primary or Family Physician SERVICE AUTHOR: Meeankshi Bangura MD * ALL edits or amendments must be made on the electronic/computer document * See Addendum HPI-Ingestion FB General Confirmed Patient Yes Initial Greet Date/Time 02/24/192305 Presentation Chief Complaint EtOH intoxication, smoked "wet" Hx Obtained From Verifying Machine Operator Onset Occurred Today Symptom Duration Since onset Progression since Onset Unchanged Quality Uncomfortable Free Text HPI Notes Free Text HPI Notes 34 y/o M with PMHx of bipolar disorder, schizophrenia, and MHMR, presents to the ED d/t EtOH intoxication, and smoking "wet" STORE MANAGER. Pt states he drank, "a bunch" of EtOH tonight. Per EMS, pt was sending text messages to his girlfriend stating he does not want to live after his girlfriend was "messing with my babies," per pt. Pt not currently in custody. Pt is not compliant with psych medications. Of note, pt has HI hx in the past. HPI and ROS limited due to pt being uncooperative. Pt seen in the [facility]. Portions of this section were scribed by Geovani Kelley on 02/25/19 at 0213 Review of Systems ROS Statements Unable to Obtain ROS Uncooperative Portions of this section were scribed by Geovain Kelley on 02/24/19 at 2356 Past Medical History - Adult Stated Complaint UNKNOWN, "POSSIBLE SI" PER EMS Allergies Coded Allergies: codeine (Intermediate, HIVES 07/06/18) diphenhydramine (From BENADRYL) (Intermediate, HIVES 07/06/18) Home Medications Reported Medications No Known Home Medications Review of Nursing Notes Rev avail, and agree Unable to Obtain Past surgical history Unobtainable due to: Uncooperative Additional Medical History bipolar disorder, schizophrenia, MHMR Alcohol Use Alcohol use Drug Use Marijuana Smoking status for patients 13 years old or older: Current every day smoker Portions of this section were scribed by Geovani Kelley on 02/24/19 at 2356 Physical Exam Vital Signs Vital Signs First Documented: Result Date Time Pulse Ox 100 02/24 2307 B/P 153/100 02/24 2307 B/P Mean 117 02/24 2307 O2 Delivery Room air 02/24 2307 Temp 36.8 02/247 Pulse 104 02/24 230 Resp 14 02/24 2307 Last Documented: Result Date Time Pulse Ox 98 02/25 0500 B/P 142/92 02/25 0500 B/P Mean 108 02/25 0500 O2 Delivery Room air 02/25 0500 Temp 35.6 02/25 0500 Pulse 62 02/25 0500 Resp 18 02/25 0500 Review of Vital Signs Reviewed, Vital signs abnormal (Elevated BP) Focused PE General/Const General/Const Awake, Alert, Well developed Text/Dict Notes Uncooperative. EtOH on breath. Ears/Nose/Throat Ears/Nose/Throat Airway patent, Mucous membranes moist MS Neck Neck Supple, Full range of motion, No swelling, Non-tender Resp/Chest Respiratory/Chest Breath sounds NL, Breath sounds = bilat, No respiratory distress, No wheezing Cardiovascular Cardiovascular Heart rate NL, Regular rhythm, Heart sounds NL, Pulses = bilaterally Abdomen/GI Abdomen/GI Soft, Non-tender, No guarding, No rebound, No distention Additional PE Skin Skin No rash, Warm, Dry, Intact, No swelling Text/Dict Notes Multiple tattoos including the face. Neurologic Neurologic No motor deficits, No sensory deficits Speech Slurred. Portions of this section were scribed by Geovani Kelley on 02/25/19 at 0003 Interpretation Diagnostics Lab Results Interpretation Results Laboratory Tests 02/25/19 0100: [Embedded Image Not Available] Laboratory Tests: 02/25 02/25 010 0100 Chemistry Sodium (134.0 - 147.0 mmol/l) 139 Potassium (3.6 - 5.2 mmol/L) 4.3 Chloride (98.0 - 107.0 mmol/l) 104 Carbon Dioxide (21.0 - 33.0 mmol/l) 28.4 Anion Gap (0 - 20) 10.9 BUN (7.0 - 18.0 mg/dl) 12 Creatinine (0.60 - 1.30 mg/dL) 0.92 Est GFR ( Amer) (127 - 133 mL/min) 120 L Est GFR (Non-Af Amer) (105 - 110 mL/min) 99 L Glucose (70.0 - 110.0 mg/dl) 90 Calcium (8.0 - 10.5 mg/dl) 8.5 Total Bilirubin (0.0 - 1.0 mg/dl) 0.8 AST (15.0 - 37.0 Units/L) 22 ALT (12.0 - 78.0 Units/L) 20 Total Alk Phosphatase (50.0 - 136.0 Units/L) 61 Total Protein (6.0 - 8.1 GM/DL) 7.2 Albumin (3.2 - 4.7 gm/dL) 4.0 Hematology WBC (4.5 - 11.0 K/mm3) 13.8 H RBC (4.40 - 5.90 M/mm3) 5.46 Hgb (13.0 - 17.0 gm/dL) 16.0 Hct (36.0 - 48.0 %) 47.3 MCV (80.0 - 94.0 UM3) 86.6 MCH (25.5 - 32.5 UUG) 29.3 MCHC (29.0 - 35.5 gm/dL) 33.8 RDW (11.5 - 15.0 %) 12.9 Plt Count (150 - 400 K/mm3) 226 MPV (7.4 - 10.4 fl) 11.5 H Neut % (Auto) (49.0 - 76.0 %) 77.5 H Lymph % (Auto) (23.0 - 38.0 %) 14.1 L Chester % (Auto) (1.0 - 10.0 %) 7.4 Eos % (Auto) (1.0 - 5.0 %) 0.1 L Baso % (Auto) (0.0 - 1.0 %) 0.4 Neut # (Auto) (2.4 - 6.3 K/mm3) 10.7 H Lymph # (Auto) (1.2 - 4.0 K/mm3) 2.0 Chester # (Auto) (0.0 - 0.6 K/mm3) 1.0 H Eos # (Auto) (0.0 - 0.7 K/MM3) 0.0 Baso # (Auto) (0.0 - 0.2 K/mm3) 0.1 Immature Gran % (0.0 - 0.4 %) 0.5 H Immature Gran # (0.00 - 0.07 x10 3/uL) 0.07 Toxicology Urine Opiates Screen (NEGATIVE) NEGATIVE Urine Methadone Screen (NEGATIVE) NEGATIVE Urine Barbiturates (NEGATIVE) NEGATIVE Ur Phencyclidine Scrn (NEGATIVE) POSITIVE H Ur Amphetamines Screen (NEGATIVE) NEGATIVE U Benzodiazepines Scrn (NEGATIVE) NEGATIVE Urine Cocaine Screen (NEGATIVE) NEGATIVE Urine Cannabinoids (NEGATIVE) POSITIVE H Ethyl Alcohol (0.00 - 0.00 gm/dL) 0.00 Lab Statement Laboratory studies reviewed and considered in the medical decision-making. Point of Care Testing Pulse Oximetry Pulse Ox % 100 On: Room air Interpretation Interpreted by nh, Pulse oximetry normal Time 2307 Lab Studies Drug Screen/Level Drug Screen Interpretation Drug screen reviewed Portions of this section were scribed by Geovani Kelley on 02/25/19 at 0213 Re-Evaluation MDM Re-Evaluation/Progress Re-Evaluation/Progress Time of Re-Eval 0214 Re-Eval Status Cleared for psych transfer ED Course Medication(s) Ordered Medication(s) Ordered: Central Nervous System Agents Sig/Geraldine Start time Last Medication Dose Route Stop Time Status Admin Lorazepam 2 MG ED Q2H PRN PRN 02/24 2330 AC IM 02/25 2226 Portions of this section were scribed by Geovani Kelley on 02/25/19 at 0213 Patient Discharge Departure Vital Signs/Condition Vital Signs First Documented: Result Date Time Pulse Ox 100 02/24 2307 B/P 153/100 02/247 B/P Mean 117 02/24 2307 O2 Delivery Room air 02/24 2307 Temp 36.8 02/24 2307 Pulse 104 02/24 230 Resp 14 02/24 2307 Last Documented: Result Date Time Pulse Ox 98 02/25 0500 B/P 142/92 02/25 0500 B/P Mean 108 02/25 0500 O2 Delivery Room air 02/25 0500 Temp 35.6 02/25 0500 Pulse 62 02/25 0500 Resp 18 02/25 0500 All vital signs available at the time of this entry have been reviewed. Condition Improved Clinical Impression Clinical Impression Primary Impression: PCP (phencyclidine) abuse Secondary Impressions: Marijuana abuse, Suicidal ideation Disposition Decision Transfer )( Request Time 213 )( Request Date 02/25/19 [facility] Psych transfer Discharge/Care Plan Counseled Regarding Diagnosis, Lab results Quality Measures Smoking Cessation Screened, non user Tobacco Screening/Cessation 18 years or older, Denies tobacco use Supervising Physician Note Scribe Statement Geovani Kelley, 02/24/19 2359, scribing for and in the presence of Dr. Bangura. Signed By: Geovani Kelley, 02/24/19 235 Provider Scribed Statement I personally performed the services described in this documentation and reviewed the documentation that was dictated to the scribe(s) in my presence, and it accurately records my words and actions. Meenakshi Bangura 02/25/19 Portions of this section were scribed by Geovani Kelely on 02/25/19 at 0213 at 0601 Addendum 1: 02/25/19 0805 by Yohana Pittman MD PT SLEEPING, NO DISTRESS, VSS, SITTER AT BEDSIDE, WAITING FOR PLACEMENT at 0805 Addendum 2: 02/25/19 0852 by Yohana Pittman MD PT NOT SCREENED, REQUESTED AGAIN at 0852 RPT #:[id number] END OF REPORT [facility] 2019-02-24 23:52:00 [facility] ([facility]) EMERGENCY PROVIDER REPORT REPORT#:[id number] REPORT STATUS: Signed DATE:02/24/19 TIME: 2351 PATIENT: CHANNING CALVERT UNIT #: [id number] ROOM/BED: AGE: 34 SEX: M PCP PHYS: No Primary or Family Physician SERVICE AUTHOR: Meenakshi Bangura MD * ALL edits or amendments must be made on the electronic/computer document * See Addendum HPI-Ingestion FB General Confirmed Patient Yes Initial Greet Date/Time 02/24/192305 Presentation Chief Complaint EtOH intoxication, smoked "wet" Hx Obtained From Verifying Machine Operator Onset Occurred Today Symptom Duration Since onset Progression since Onset Unchanged Quality Uncomfortable Free Text HPI Notes Free Text HPI Notes 34 y/o M with PMHx of bipolar disorder, schizophrenia, and MHMR, presents to the ED d/t EtOH intoxication, and smoking "wet" STORE MANAGER. Pt states he drank, "a bunch" of EtOH tonight. Per EMS, pt was sending text messages to his girlfriend stating he does not want to live after his girlfriend was "messing with my babies," per pt. Pt not currently in custody. Pt is not compliant with psych medications. Of note, pt has HI hx in the past. HPI and ROS limited due to pt being uncooperative. Pt seen in the [facility]. Portions of this section were scribed by Geovani Kelley on 02/25/19 at 0213 Review of Systems ROS Statements Unable to Obtain ROS Uncooperative Portions of this section were scribed by Geovani Kelley on 02/24/19 at 2356 Past Medical History - Adult Stated Complaint UNKNOWN, "POSSIBLE SI" PER EMS Allergies Coded Allergies: codeine (Intermediate, HIVES 07/06/18) diphenhydramine (From BENADRYL) (Intermediate, HIVES 07/06/18) Home Medications Reported Medications No Known Home Medications Review of Nursing Notes Rev avail, and agree Unable to Obtain Past surgical history Unobtainable due to: Uncooperative Additional Medical History bipolar disorder, schizophrenia, MHMR Alcohol Use Alcohol use Drug Use Marijuana Smoking status for patients 13 years old or older: Current every day smoker Portions of this section were scribed by Geovani Kelley on 02/24/19 at 2356 Physical Exam Vital Signs Vital Signs First Documented: Result Date Time Pulse Ox 100 02/24 2307 B/P 153/100 02/24 2307 B/P Mean 117 02/24 2307 O2 Delivery Room air 02/24 2307 Temp 36.8 02/24 2307 Pulse 104 02/24 2307 Resp 14 02/24 2307 Last Documented: Result Date Time Pulse Ox 98 02/25 500 B/P 142/92 02/25 500 B/P Mean 108 02/25 500 O2 Delivery Room air 02/25 500 Temp 35.6 02/25 050 Pulse 62 02/25 500 Resp 18 02/25 500 Review of Vital Signs Reviewed, Vital signs abnormal (Elevated BP) Focused PE General/Const General/Const Awake, Alert, Well developed Text/Dict Notes Uncooperative. EtOH on breath. Ears/Nose/Throat Ears/Nose/Throat Airway patent, Mucous membranes moist MS Neck Neck Supple, Full range of motion, No swelling, Non-tender Resp/Chest Respiratory/Chest Breath sounds NL, Breath sounds = bilat, No respiratory distress, No wheezing Cardiovascular Cardiovascular Heart rate NL, Regular rhythm, Heart sounds NL, Pulses = bilaterally Abdomen/GI Abdomen/GI Soft, Non-tender, No guarding, No rebound, No distention Additional PE Skin Skin No rash, Warm, Dry, Intact, No swelling Text/Dict Notes Multiple tattoos including the face. Neurologic Neurologic No motor deficits, No sensory deficits Speech Slurred. Portions of this section were scribed by Geovani Kelley on 02/25/19 at 0003 Interpretation Diagnostics Lab Results Interpretation Results Laboratory Tests 02/25/19 0100: [Embedded Image Not Available] Laboratory Tests: 02/25 02/25 0100 0100 Chemistry Sodium (134.0 - 147.0 mmol/l) 139 Potassium (3.6 - 5.2 mmol/L) 4.3 Chloride (98.0 - 107.0 mmol/l) 104 Carbon Dioxide (21.0 - 33.0 mmol/l) 28.4 Anion Gap (0 - 20) 10.9 BUN (7.0 - 18.0 mg/dl) 12 Creatinine (0.60 - 1.30 mg/dL) 0.92 Est GFR ( Amer) (127 - 133 mL/min) 120 L Est GFR (Non-Af Amer) (105 - 110 mL/min) 99 L Glucose (70.0 - 110.0 mg/dl) 90 Calcium (8.0 - 10.5 mg/dl) 8.5 Total Bilirubin (0.0 - 1.0 mg/dl) 0.8 AST (15.0 - 37.0 Units/L) 22 ALT (12.0 - 78.0 Units/L) 20 Total Alk Phosphatase (50.0 - 136.0 Units/L) 61 Total Protein (6.0 - 8.1 GM/DL) 7.2 Albumin (3.2 - 4.7 gm/dL) 4.0 Hematology WBC (4.5 - 11.0 K/mm3) 13.8 H RBC (4.40 - 5.90 M/mm3) 5.46 Hgb (13.0 - 17.0 gm/dL) 16.0 Hct (36.0 - 48.0 %) 47.3 MCV (80.0 - 94.0 UM3) 86.6 MCH (25.5 - 32.5 UUG) 29.3 MCHC (29.0 - 35.5 gm/dL) 33.8 RDW (11.5 - 15.0 %) 12.9 Plt Count (150 - 400 K/mm3) 226 MPV (7.4 - 10.4 fl) 11.5 H Neut % (Auto) (49.0 - 76.0 %) 77.5 H Lymph % (Auto) (23.0 - 38.0 %) 14.1 L Chester % (Auto) (1.0 - 10.0 %) 7.4 Eos % (Auto) (1.0 - 5.0 %) 0.1 L Baso % (Auto) (0.0 - 1.0 %) 0.4 Neut # (Auto) (2.4 - 6.3 K/mm3) 10.7 H Lymph # (Auto) (1.2 - 4.0 K/mm3) 2.0 Chester # (Auto) (0.0 - 0.6 K/mm3) 1.0 H Eos # (Auto) (0.0 - 0.7 K/MM3) 0.0 Baso # (Auto) (0.0 - 0.2 K/mm3) 0.1 Immature Gran % (0.0 - 0.4 %) 0.5 H Immature Gran # (0.00 - 0.07 x10 3/uL) 0.07 Toxicology Urine Opiates Screen (NEGATIVE) NEGATIVE Urine Methadone Screen (NEGATIVE) NEGATIVE Urine Barbiturates (NEGATIVE) NEGATIVE Ur Phencyclidine Scrn (NEGATIVE) POSITIVE H Ur Amphetamines Screen (NEGATIVE) NEGATIVE U Benzodiazepines Scrn (NEGATIVE) NEGATIVE Urine Cocaine Screen (NEGATIVE) NEGATIVE Urine Cannabinoids (NEGATIVE) POSITIVE H Ethyl Alcohol (0.00 - 0.00 gm/dL) 0.00 Lab Statement Laboratory studies reviewed and considered in the medical decision-making. Point of Care Testing Pulse Oximetry Pulse Ox % 100 On: Room air Interpretation Interpreted by nh, Pulse oximetry normal Time 230 Lab Studies Drug Screen/Level Drug Screen Interpretation Drug screen reviewed Portions of this section were scribed by Geovani Kelley on 02/25/19 at 0213 Re-Evaluation MDM Re-Evaluation/Progress Re-Evaluation/Progress Time of Re-Eval 213 Re-Eval Status Cleared for psych transfer ED Course Medication(s) Ordered Medication(s) Ordered: Central Nervous System Agents Sig/Geraldine Start time Last Medication Dose Route Stop Time Status Admin Lorazepam 2 MG ED Q2H PRN PRN 02/24 2330 AC IM 02/256 Portions of this section were scribed by Geovani Kelley on 02/25/19 at 0213 Patient Discharge Departure Vital Signs/Condition Vital Signs First Documented: Result Date Time Pulse Ox 100 02/24 2307 B/P 153/100 02/24 2307 B/P Mean 117 02/24 2307 O2 Delivery Room air 02/24 2307 Temp 36.8 02/24 230 Pulse 104 02/24 2307 Resp 14 02/24 2307 Last Documented: Result Date Time Pulse Ox 98 02/25 0500 B/P 142/92 02/25 0500 B/P Mean 108 02/25 0500 O2 Delivery Room air 02/25 0500 Temp 35.6 02/25 0500 Pulse 62 02/25 0500 Resp 18 02/25 0500 All vital signs available at the time of this entry have been reviewed. Condition Improved Clinical Impression Clinical Impression Primary Impression: PCP (phencyclidine) abuse Secondary Impressions: Marijuana abuse, Suicidal ideation Disposition Decision Transfer )( Request Time 021 )( Request Date [facility] Discharge/Care Plan Counseled Regarding Diagnosis, Lab results Quality Measures Smoking Cessation Screened, non user Tobacco Screening/Cessation 18 years or older, Denies tobacco use Supervising Physician Note Scribe Statement Geovani Kelley, 02/24/19 0779, scribing for and in the presence of Dr. Bangura. Signed By: Geovani Kelley, 02/24/192358 Provider Scribed Statement I personally performed the services described in this documentation and reviewed the documentation that was dictated to the scribe(s) in my presence, and it accurately records my words and actions. Meenakshi Bangura 02/25/19 Portions of this section were scribed by Geovani Kelley on 02/25/19 at 0213 at 0601 Addendum 1: 02/25/19 0805 by Yohana Pittman MD PT SLEEPING, NO DISTRESS, VSS, SITTER AT BEDSIDE, WAITING FOR PLACEMENT at 0805 Addendum 2: 02/25/19 0852 by Yohana Pittman MD PT NOT SCREENED, REQUESTED AGAIN at 0852 Addendum 3: 02/25/19 1154 by Yohana Pittman MD [facility] RECOMMENDS INPATIENT VOLUNTARY at 1155 RPT #:[id number] END OF REPORT [facility] 2019-02-24 23:52:00 [facility] ([facility]) EMERGENCY PROVIDER REPORT REPORT#:[id number] REPORT STATUS: Signed DATE:02/24/19 TIME: 2351 PATIENT: CHANNING CALVERT UNIT #: [id number] ROOM/BED: AGE: 34 SEX: M PCP PHYS: No Primary or Family Physician SERVICE AUTHOR: Meenakshi Bangura MD * ALL edits or amendments must be made on the electronic/computer document * See Addendum HPI-Ingestion FB General Confirmed Patient Yes Initial Greet Date/Time 02/24/192305 Presentation Chief Complaint EtOH intoxication, smoked "wet" Hx Obtained From Verifying Machine Operator Onset Occurred Today Symptom Duration Since onset Progression since Onset Unchanged Quality Uncomfortable Free Text HPI Notes Free Text HPI Notes 34 y/o M with PMHx of bipolar disorder, schizophrenia, and MHMR, presents to the ED d/t EtOH intoxication, and smoking "wet" STORE MANAGER. Pt states he drank, "a bunch" of EtOH tonight. Per EMS, pt was sending text messages to his girlfriend stating he does not want to live after his girlfriend was "messing with my babies," per pt. Pt not currently in custody. Pt is not compliant with psych medications. Of note, pt has HI hx in the past. HPI and ROS limited due to pt being uncooperative. Pt seen in the [facility]. Portions of this section were scribed by Geovani Kelley on 02/25/19 at 0213 Review of Systems ROS Statements Unable to Obtain ROS Uncooperative Portions of this section were scribed by Geovani Kelley on 02/24/19 at 2356 Past Medical History - Adult Stated Complaint UNKNOWN, "POSSIBLE SI" PER EMS Allergies Coded Allergies: codeine (Intermediate, HIVES 07/06/18) diphenhydramine (From BENADRYL) (Intermediate, HIVES 07/06/18) Home Medications Reported Medications No Known Home Medications Review of Nursing Notes Rev avail, and agree Unable to Obtain Past surgical history Unobtainable due to: Uncooperative Additional Medical History bipolar disorder, schizophrenia, MHMR Alcohol Use Alcohol use Drug Use Marijuana Smoking status for patients 13 years old or older: Current every day smoker Portions of this section were scribed by Geovani Kelley on 02/24/19 at 2356 Physical Exam Vital Signs Vital Signs First Documented: Result Date Time Pulse Ox 100 02/24 2307 B/P 153/100 02/24 2307 B/P Mean 117 02/24 2307 O2 Delivery Room air 02/24 2307 Temp 36.8 02/24 2307 Pulse 104 02/24 2307 Resp 14 02/24 2307 Last Documented: Result Date Time Pulse Ox 98 02/25 0500 B/P 142/92 02/25 0500 B/P Mean 108 02/25 0500 O2 Delivery Room air 02/25 050 Temp 35.6 02/25 0500 Pulse 62 02/25 0500 Resp 18 02/25 0500 Review of Vital Signs Reviewed, Vital signs abnormal (Elevated BP) Focused PE General/Const General/Const Awake, Alert, Well developed Text/Dict Notes Uncooperative. EtOH on breath. Ears/Nose/Throat Ears/Nose/Throat Airway patent, Mucous membranes moist MS Neck Neck Supple, Full range of motion, No swelling, Non-tender Resp/Chest Respiratory/Chest Breath sounds NL, Breath sounds = bilat, No respiratory distress, No wheezing Cardiovascular Cardiovascular Heart rate NL, Regular rhythm, Heart sounds NL, Pulses = bilaterally Abdomen/GI Abdomen/GI Soft, Non-tender, No guarding, No rebound, No distention Additional PE Skin Skin No rash, Warm, Dry, Intact, No swelling Text/Dict Notes Multiple tattoos including the face. Neurologic Neurologic No motor deficits, No sensory deficits Speech Slurred. Portions of this section were scribed by Geovani Kelley on 02/25/19 at 0003 Interpretation Diagnostics Lab Results Interpretation Results Laboratory Tests 02/25/19 0100: [Embedded Image Not Available] Laboratory Tests: 02/25 02/25 0100 0100 Chemistry Sodium (134.0 - 147.0 mmol/l) 139 Potassium (3.6 - 5.2 mmol/L) 4.3 Chloride (98.0 - 107.0 mmol/l) 104 Carbon Dioxide (21.0 - 33.0 mmol/l) 28.4 Anion Gap (0 - 20) 10.9 BUN (7.0 - 18.0 mg/dl) 12 Creatinine (0.60 - 1.30 mg/dL) 0.92 Est GFR ( Amer) (127 - 133 mL/min) 120 L Est GFR (Non-Af Amer) (105 - 110 mL/min) 99 L Glucose (70.0 - 110.0 mg/dl) 90 Calcium (8.0 - 10.5 mg/dl) 8.5 Total Bilirubin (0.0 - 1.0 mg/dl) 0.8 AST (15.0 - 37.0 Units/L) 22 ALT (12.0 - 78.0 Units/L) 20 Total Alk Phosphatase (50.0 - 136.0 Units/L) 61 Total Protein (6.0 - 8.1 GM/DL) 7.2 Albumin (3.2 - 4.7 gm/dL) 4.0 Hematology WBC (4.5 - 11.0 K/mm3) 13.8 H RBC (4.40 - 5.90 M/mm3) 5.46 Hgb (13.0 - 17.0 gm/dL) 16.0 Hct (36.0 - 48.0 %) 47.3 MCV (80.0 - 94.0 UM3) 86.6 MCH (25.5 - 32.5 UUG) 29.3 MCHC (29.0 - 35.5 gm/dL) 33.8 RDW (11.5 - 15.0 %) 12.9 Plt Count (150 - 400 K/mm3) 226 MPV (7.4 - 10.4 fl) 11.5 H Neut % (Auto) (49.0 - 76.0 %) 77.5 H Lymph % (Auto) (23.0 - 38.0 %) 14.1 L Chester % (Auto) (1.0 - 10.0 %) 7.4 Eos % (Auto) (1.0 - 5.0 %) 0.1 L Baso % (Auto) (0.0 - 1.0 %) 0.4 Neut # (Auto) (2.4 - 6.3 K/mm3) 10.7 H Lymph # (Auto) (1.2 - 4.0 K/mm3) 2.0 Chester # (Auto) (0.0 - 0.6 K/mm3) 1.0 H Eos # (Auto) (0.0 - 0.7 K/MM3) 0.0 Baso # (Auto) (0.0 - 0.2 K/mm3) 0.1 Immature Gran % (0.0 - 0.4 %) 0.5 H Immature Gran # (0.00 - 0.07 x10 3/uL) 0.07 Toxicology Urine Opiates Screen (NEGATIVE) NEGATIVE Urine Methadone Screen (NEGATIVE) NEGATIVE Urine Barbiturates (NEGATIVE) NEGATIVE Ur Phencyclidine Scrn (NEGATIVE) POSITIVE H Ur Amphetamines Screen (NEGATIVE) NEGATIVE U Benzodiazepines Scrn (NEGATIVE) NEGATIVE Urine Cocaine Screen (NEGATIVE) NEGATIVE Urine Cannabinoids (NEGATIVE) POSITIVE H Ethyl Alcohol (0.00 - 0.00 gm/dL) 0.00 Lab Statement Laboratory studies reviewed and considered in the medical decision-making. Point of Care Testing Pulse Oximetry Pulse Ox % 100 On: Room air Interpretation Interpreted by me, Pulse oximetry normal Time 2307 Lab Studies Drug Screen/Level Drug Screen Interpretation Drug screen reviewed Portions of this section were scribed by Geovani Kelley on 02/25/19 at 0213 Re-Evaluation MDM Re-Evaluation/Progress Re-Evaluation/Progress Time of Re-Eval 4 Re-Eval Status Cleared for psych transfer ED Course Medication(s) Ordered Medication(s) Ordered: Central Nervous System Agents Sig/Geraldine Start time Last Medication Dose Route Stop Time Status Admin Lorazepam 2 MG ED Q2H PRN PRN 02/24 2330 AC IM 02/25 2226 Portions of this section were scribed by Geovani Kelley on 02/25/19 at 0213 Patient Discharge Departure Vital Signs/Condition Vital Signs First Documented: Result Date Time Pulse Ox 100 02/24 230 B/P 153/100 02/24 2307 B/P Mean 117 02/24 2307 O2 Delivery Room air 02/24 2307 Temp 36.8 02/24 2307 Pulse 104 02/24 2307 Resp 14 02/24 230 Last Documented: Result Date Time Pulse Ox 98 02/25 0500 B/P 142/92 02/25 0500 B/P Mean 108 02/25 0500 O2 Delivery Room air 02/25 0500 Temp 35.6 02/25 0500 Pulse 62 02/25 0500 Resp 18 02/25 0500 All vital signs available at the time of this entry have been reviewed. Condition Improved Clinical Impression Clinical Impression Primary Impression: PCP (phencyclidine) abuse Secondary Impressions: Marijuana abuse, Suicidal ideation Disposition Decision Transfer )( Request Time 213 )( Request Date 02/25/19 [facility] Psych transfer Discharge/Care Plan Counseled Regarding Diagnosis, Lab results Quality Measures Smoking Cessation Screened, non user Tobacco Screening/Cessation 18 years or older, Denies tobacco use Supervising Physician Note Scribe Statement Geovani Kelley, 02/24/19 6603, scribing for and in the presence of Dr. Bangura. Signed By: Geovani Kelley, 02/24/192358 Provider Scribed Statement I personally performed the services described in this documentation and reviewed the documentation that was dictated to the scribe(s) in my presence, and it accurately records my words and actions. Meenakshi Bangura, 02/25/19 Portions of this section were scribed by Geovani Kelley on 02/25/19 at 0213 at 0601 Addendum 1: 02/25/19 0805 by Yohana Pittman MD PT SLEEPING, NO DISTRESS, VSS, SITTER AT BEDSIDE, WAITING FOR PLACEMENT at 0805 Addendum 2: 02/25/19 0852 by Yohana Pittman MD PT NOT SCREENED, REQUESTED AGAIN at 0852 Addendum 3: 02/25/19 1154 by Yohana Pittman MD [facility] RECOMMENDS INPATIENT VOLUNTARY at 1155 Addendum 4: 02/25/19 1254 by Yohana Pittman MD [facility] RECOMMENDS INPT PSYCH at 1255 RPT #:[id number] END OF REPORT [facility] 2019-02-24 23:52:00 [facility] ([facility]) EMERGENCY PROVIDER REPORT REPORT#:[id number] REPORT STATUS: Signed DATE:02/24/19 TIME: 2351 PATIENT: CHANNING CALVERT UNIT #: [id number] ROOM/BED: AGE: 34 SEX: M PCP PHYS: No Primary or Family Physician SERVICE AUTHOR: Meenakshi Bangura MD * ALL edits or amendments must be made on the electronic/computer document * See Addendum HPI-Ingestion FB General Confirmed Patient Yes Initial Greet Date/Time 02/24/19 1338 Presentation Chief Complaint EtOH intoxication, smoked "wet" Hx Obtained From Verifying Machine Operator Onset Occurred Today Symptom Duration Since onset Progression since Onset Unchanged Quality Uncomfortable Free Text HPI Notes Free Text HPI Notes 34 y/o M with PMHx of bipolar disorder, schizophrenia, and MHMR, presents to the ED d/t EtOH intoxication, and smoking "wet" STORE MANAGER. Pt states he drank, "a bunch" of EtOH tonight. Per EMS, pt was sending text messages to his girlfriend stating he does not want to live after his girlfriend was "messing with my babies," per pt. Pt not currently in custody. Pt is not compliant with psych medications. Of note, pt has HI hx in the past. HPI and ROS limited due to pt being uncooperative. Pt seen in the [facility]. Portions of this section were scribed by Geovani Kelley on 02/25/19 at 0213 Review of Systems ROS Statements Unable to Obtain ROS Uncooperative Portions of this section were scribed by Geovani Kelley on 02/24/19 at 2356 Past Medical History - Adult Stated Complaint UNKNOWN, "POSSIBLE SI" PER EMS Allergies Coded Allergies: codeine (Intermediate, HIVES 07/06/18) diphenhydramine (From BENADRYL) (Intermediate, HIVES 07/06/18) Home Medications Reported Medications No Known Home Medications Review of Nursing Notes Rev avail, and agree Unable to Obtain Past surgical history Unobtainable due to: Uncooperative Additional Medical History bipolar disorder, schizophrenia, MHMR Alcohol Use Alcohol use Drug Use Marijuana Smoking status for patients 13 years old or older: Current every day smoker Portions of this section were scribed by Geovani Kelley on 02/24/19 at 2356 Physical Exam Vital Signs Vital Signs First Documented: Result Date Time Pulse Ox 100 02/24 2307 B/P 153/100 02/24 2307 B/P Mean 117 02/24 2307 O2 Delivery Room air 02/24 2307 Temp 36.8 02/24 2307 Pulse 104 02/24 2307 Resp 14 02/24 2307 Last Documented: Result Date Time Pulse Ox 98 02/25 0500 B/P 142/92 02/25 0500 B/P Mean 108 02/25 0500 O2 Delivery Room air 02/25 0500 Temp 35.6 02/25 0500 Pulse 62 02/25 0500 Resp 18 02/25 0500 Review of Vital Signs Reviewed, Vital signs abnormal (Elevated BP) Focused PE General/Const General/Const Awake, Alert, Well developed Text/Dict Notes Uncooperative. EtOH on breath. Ears/Nose/Throat Ears/Nose/Throat Airway patent, Mucous membranes moist MS Neck Neck Supple, Full range of motion, No swelling, Non-tender Resp/Chest Respiratory/Chest Breath sounds NL, Breath sounds = bilat, No respiratory distress, No wheezing Cardiovascular Cardiovascular Heart rate NL, Regular rhythm, Heart sounds NL, Pulses = bilaterally Abdomen/GI Abdomen/GI Soft, Non-tender, No guarding, No rebound, No distention Additional PE Skin Skin No rash, Warm, Dry, Intact, No swelling Text/Dict Notes Multiple tattoos including the face. Neurologic Neurologic No motor deficits, No sensory deficits Speech Slurred. Portions of this section were scribed by Geovani Kelley on 02/25/19 at 0003 Interpretation Diagnostics Lab Results Interpretation Results Laboratory Tests 02/25/19 0100: [Embedded Image Not Available] Laboratory Tests: 02/25 02/25 0100 0100 Chemistry Sodium (134.0 - 147.0 mmol/l) 139 Potassium (3.6 - 5.2 mmol/L) 4.3 Chloride (98.0 - 107.0 mmol/l) 104 Carbon Dioxide (21.0 - 33.0 mmol/l) 28.4 Anion Gap (0 - 20) 10.9 BUN (7.0 - 18.0 mg/dl) 12 Creatinine (0.60 - 1.30 mg/dL) 0.92 Est GFR ( Amer) (127 - 133 mL/min) 120 L Est GFR (Non-Af Amer) (105 - 110 mL/min) 99 L Glucose (70.0 - 110.0 mg/dl) 90 Calcium (8.0 - 10.5 mg/dl) 8.5 Total Bilirubin (0.0 - 1.0 mg/dl) 0.8 AST (15.0 - 37.0 Units/L) 22 ALT (12.0 - 78.0 Units/L) 20 Total Alk Phosphatase (50.0 - 136.0 Units/L) 61 Total Protein (6.0 - 8.1 GM/DL) 7.2 Albumin (3.2 - 4.7 gm/dL) 4.0 Hematology WBC (4.5 - 11.0 K/mm3) 13.8 H RBC (4.40 - 5.90 M/mm3) 5.46 Hgb (13.0 - 17.0 gm/dL) 16.0 Hct (36.0 - 48.0 %) 47.3 MCV (80.0 - 94.0 UM3) 86.6 MCH (25.5 - 32.5 UUG) 29.3 MCHC (29.0 - 35.5 gm/dL) 33.8 RDW (11.5 - 15.0 %) 12.9 Plt Count (150 - 400 K/mm3) 226 MPV (7.4 - 10.4 fl) 11.5 H Neut % (Auto) (49.0 - 76.0 %) 77.5 H Lymph % (Auto) (23.0 - 38.0 %) 14.1 L Chester % (Auto) (1.0 - 10.0 %) 7.4 Eos % (Auto) (1.0 - 5.0 %) 0.1 L Baso % (Auto) (0.0 - 1.0 %) 0.4 Neut # (Auto) (2.4 - 6.3 K/mm3) 10.7 H Lymph # (Auto) (1.2 - 4.0 K/mm3) 2.0 Chester # (Auto) (0.0 - 0.6 K/mm3) 1.0 H Eos # (Auto) (0.0 - 0.7 K/MM3) 0.0 Baso # (Auto) (0.0 - 0.2 K/mm3) 0.1 Immature Gran % (0.0 - 0.4 %) 0.5 H Immature Gran # (0.00 - 0.07 x10 3/uL) 0.07 Toxicology Urine Opiates Screen (NEGATIVE) NEGATIVE Urine Methadone Screen (NEGATIVE) NEGATIVE Urine Barbiturates (NEGATIVE) NEGATIVE Ur Phencyclidine Scrn (NEGATIVE) POSITIVE H Ur Amphetamines Screen (NEGATIVE) NEGATIVE U Benzodiazepines Scrn (NEGATIVE) NEGATIVE Urine Cocaine Screen (NEGATIVE) NEGATIVE Urine Cannabinoids (NEGATIVE) POSITIVE H Ethyl Alcohol (0.00 - 0.00 gm/dL) 0.00 Lab Statement Laboratory studies reviewed and considered in the medical decision-making. Point of Care Testing Pulse Oximetry Pulse Ox % 100 On: Room air Interpretation Interpreted by me, Pulse oximetry normal Time 2307 Lab Studies Drug Screen/Level Drug Screen Interpretation Drug screen reviewed Portions of this section were scribed by Geovani Kelley on 02/25/19 at 0213 Re-Evaluation MDM Re-Evaluation/Progress Re-Evaluation/Progress Time of Re-Eval 0214 Re-Eval Status Cleared for psych transfer ED Course Medication(s) Ordered Medication(s) Ordered: Central Nervous System Agents Sig/Geraldine Start time Last Medication Dose Route Stop Time Status Admin Lorazepam 2 MG ED Q2H PRN PRN 02/24 2330 AC IM 02/25 2226 Portions of this section were scribed by Geovani Kelley on 02/25/19 at 0213 Patient Discharge Departure Vital Signs/Condition Vital Signs First Documented: Result Date Time Pulse Ox 100 02/24 230 B/P 153/100 02/24 2307 B/P Mean 117 02/24 2307 O2 Delivery Room air 02/24 230 Temp 36.8 02/24 230 Pulse 104 02/24 2307 Resp 14 02/24 230 Last Documented: Result Date Time Pulse Ox 98 02/25 0500 B/P 142/92 02/25 0500 B/P Mean 108 02/25 0500 O2 Delivery Room air 02/25 0500 Temp 35.6 02/25 0500 Pulse 62 02/25 0500 Resp 18 02/25 0500 All vital signs available at the time of this entry have been reviewed. Condition Improved Clinical Impression Clinical Impression Primary Impression: PCP (phencyclidine) abuse Secondary Impressions: Marijuana abuse, Suicidal ideation Disposition Decision Transfer )( Request Time 213 )( Request Date 02/25/19 [facility] Psych transfer Discharge/Care Plan Counseled Regarding Diagnosis, Lab results Quality Measures Smoking Cessation Screened, non user Tobacco Screening/Cessation 18 years or older, Denies tobacco use Supervising Physician Note Scribe Statement Geovani Kelley, 02/24/19 3752, scribing for and in the presence of Dr. Bangura. Signed By: Geovani Kelley, 02/24/19 2969 Provider Scribed Statement I personally performed the services described in this documentation and reviewed the documentation that was dictated to the scribe(s) in my presence, and it accurately records my words and actions. Meenakshi Bangura 02/25/19 Portions of this section were scribed by Geovani Kelley on 02/25/19 at 0213 at 0601 Addendum 1: 02/25/19 0805 by Yohana Pittman MD PT SLEEPING, NO DISTRESS, VSS, SITTER AT BEDSIDE, WAITING FOR PLACEMENT at 0805 Addendum 2: 02/25/19 0852 by Yohana Pittman MD PT NOT SCREENED, REQUESTED AGAIN at 0852 Addendum 3: 02/25/19 1154 by Yohana Pittman MD [facility] RECOMMENDS INPATIENT VOLUNTARY at 1155 Addendum 4: 02/25/19 1254 by Yohana Pittman MD [facility] RECOMMENDS INPT PSYCH at 1255 Addendum 5: 02/26/19 0504 by Reynaldo Griggs MD Patient's vital signs are stable, no acute distress, no current issues. The patient has been interviewed by [facility]. We are currently awaiting placement and transfer. at 0504 RPT #:[id number] END OF REPORT [facility] 2019-02-24 23:52:00 [facility] ([facility]) EMERGENCY PROVIDER REPORT REPORT#:[id number] REPORT STATUS: Signed DATE:02/24/19 TIME: 2351 PATIENT: CHANNING CALVERT UNIT #: [id number] ROOM/BED: AGE: 34 SEX: M PCP PHYS: No Primary or Family Physician SERVICE AUTHOR: Meenakshi Bangura MD * ALL edits or amendments must be made on the electronic/computer document * See Addendum HPI-Ingestion FB General Confirmed Patient Yes Initial Greet Date/Time 02/24/19 8264 Presentation Chief Complaint EtOH intoxication, smoked "wet" Hx Obtained From Verifying Machine Operator Onset Occurred Today Symptom Duration Since onset Progression since Onset Unchanged Quality Uncomfortable Free Text HPI Notes Free Text HPI Notes 34 y/o M with PMHx of bipolar disorder, schizophrenia, and MHMR, presents to the ED d/t EtOH intoxication, and smoking "wet" STORE MANAGER. Pt states he drank, "a bunch" of EtOH tonight. Per EMS, pt was sending text messages to his girlfriend stating he does not want to live after his girlfriend was "messing with my babies," per pt. Pt not currently in custody. Pt is not compliant with psych medications. Of note, pt has HI hx in the past. HPI and ROS limited due to pt being uncooperative. Pt seen in the [facility]. Portions of this section were scribed by Geovani Kelley on 02/25/19 at 0213 Review of Systems ROS Statements Unable to Obtain ROS Uncooperative Portions of this section were scribed by Geovani Kelley on 02/24/19 at 2356 Past Medical History - Adult Stated Complaint UNKNOWN, "POSSIBLE SI" PER EMS Allergies Coded Allergies: codeine (Intermediate, HIVES 07/06/18) diphenhydramine (From BENADRYL) (Intermediate, HIVES 07/06/18) Home Medications Reported Medications No Known Home Medications Review of Nursing Notes Rev avail, and agree Unable to Obtain Past surgical history Unobtainable due to: Uncooperative Additional Medical History bipolar disorder, schizophrenia, MHMR Alcohol Use Alcohol use Drug Use Marijuana Smoking status for patients 13 years old or older: Current every day smoker Portions of this section were scribed by Geovani Kelley on 02/24/19 at 2356 Physical Exam Vital Signs Vital Signs First Documented: Result Date Time Pulse Ox 100 02/24 2307 B/P 153/100 02/24 2307 B/P Mean 117 02/24 2307 O2 Delivery Room air 02/24 2307 Temp 36.8 02/24 2307 Pulse 104 02/24 2307 Resp 14 02/24 2307 Last Documented: Result Date Time Pulse Ox 98 02/25 0500 B/P 142/92 02/25 0500 B/P Mean 108 02/25 0500 O2 Delivery Room air 02/25 0500 Temp 35.6 02/25 0500 Pulse 62 02/25 0500 Resp 18 02/25 0500 Review of Vital Signs Reviewed, Vital signs abnormal (Elevated BP) Focused PE General/Const General/Const Awake, Alert, Well developed Text/Dict Notes Uncooperative. EtOH on breath. Ears/Nose/Throat Ears/Nose/Throat Airway patent, Mucous membranes moist MS Neck Neck Supple, Full range of motion, No swelling, Non-tender Resp/Chest Respiratory/Chest Breath sounds NL, Breath sounds = bilat, No respiratory distress, No wheezing Cardiovascular Cardiovascular Heart rate NL, Regular rhythm, Heart sounds NL, Pulses = bilaterally Abdomen/GI Abdomen/GI Soft, Non-tender, No guarding, No rebound, No distention Additional PE Skin Skin No rash, Warm, Dry, Intact, No swelling Text/Dict Notes Multiple tattoos including the face. Neurologic Neurologic No motor deficits, No sensory deficits Speech Slurred. Portions of this section were scribed by Geovani Kelley on 02/25/19 at 0003 Interpretation Diagnostics Lab Results Interpretation Results Laboratory Tests 02/25/19 0100: [Embedded Image Not Available] Laboratory Tests: 02/25 02/25 010 0100 Chemistry Sodium (134.0 - 147.0 mmol/l) 139 Potassium (3.6 - 5.2 mmol/L) 4.3 Chloride (98.0 - 107.0 mmol/l) 104 Carbon Dioxide (21.0 - 33.0 mmol/l) 28.4 Anion Gap (0 - 20) 10.9 BUN (7.0 - 18.0 mg/dl) 12 Creatinine (0.60 - 1.30 mg/dL) 0.92 Est GFR ( Amer) (127 - 133 mL/min) 120 L Est GFR (Non-Af Amer) (105 - 110 mL/min) 99 L Glucose (70.0 - 110.0 mg/dl) 90 Calcium (8.0 - 10.5 mg/dl) 8.5 Total Bilirubin (0.0 - 1.0 mg/dl) 0.8 AST (15.0 - 37.0 Units/L) 22 ALT (12.0 - 78.0 Units/L) 20 Total Alk Phosphatase (50.0 - 136.0 Units/L) 61 Total Protein (6.0 - 8.1 GM/DL) 7.2 Albumin (3.2 - 4.7 gm/dL) 4.0 Hematology WBC (4.5 - 11.0 K/mm3) 13.8 H RBC (4.40 - 5.90 M/mm3) 5.46 Hgb (13.0 - 17.0 gm/dL) 16.0 Hct (36.0 - 48.0 %) 47.3 MCV (80.0 - 94.0 UM3) 86.6 MCH (25.5 - 32.5 UUG) 29.3 MCHC (29.0 - 35.5 gm/dL) 33.8 RDW (11.5 - 15.0 %) 12.9 Plt Count (150 - 400 K/mm3) 226 MPV (7.4 - 10.4 fl) 11.5 H Neut % (Auto) (49.0 - 76.0 %) 77.5 H Lymph % (Auto) (23.0 - 38.0 %) 14.1 L Chester % (Auto) (1.0 - 10.0 %) 7.4 Eos % (Auto) (1.0 - 5.0 %) 0.1 L Baso % (Auto) (0.0 - 1.0 %) 0.4 Neut # (Auto) (2.4 - 6.3 K/mm3) 10.7 H Lymph # (Auto) (1.2 - 4.0 K/mm3) 2.0 Chester # (Auto) (0.0 - 0.6 K/mm3) 1.0 H Eos # (Auto) (0.0 - 0.7 K/MM3) 0.0 Baso # (Auto) (0.0 - 0.2 K/mm3) 0.1 Immature Gran % (0.0 - 0.4 %) 0.5 H Immature Gran # (0.00 - 0.07 x10 3/uL) 0.07 Toxicology Urine Opiates Screen (NEGATIVE) NEGATIVE Urine Methadone Screen (NEGATIVE) NEGATIVE Urine Barbiturates (NEGATIVE) NEGATIVE Ur Phencyclidine Scrn (NEGATIVE) POSITIVE H Ur Amphetamines Screen (NEGATIVE) NEGATIVE U Benzodiazepines Scrn (NEGATIVE) NEGATIVE Urine Cocaine Screen (NEGATIVE) NEGATIVE Urine Cannabinoids (NEGATIVE) POSITIVE H Ethyl Alcohol (0.00 - 0.00 gm/dL) 0.00 Lab Statement Laboratory studies reviewed and considered in the medical decision-making. Point of Care Testing Pulse Oximetry Pulse Ox % 100 On: Room air Interpretation Interpreted by nh, Pulse oximetry normal Time 2307 Lab Studies Drug Screen/Level Drug Screen Interpretation Drug screen reviewed Portions of this section were scribed by Geovani Kelley on 02/25/19 at 0213 Re-Evaluation MDM Re-Evaluation/Progress Re-Evaluation/Progress Time of Re-Eval 0214 Re-Eval Status Cleared for psych transfer ED Course Medication(s) Ordered Medication(s) Ordered: Central Nervous System Agents Sig/Geraldine Start time Last Medication Dose Route Stop Time Status Admin Lorazepam 2 MG ED Q2H PRN PRN 04/26 2330 AC IM 02/25 2226 Portions of this section were scribed by Geovani Kelley on 02/25/19 at 0213 Patient Discharge Departure Vital Signs/Condition Vital Signs First Documented: Result Date Time Pulse Ox 100 02/24 2307 B/P 153/100 02/24 2307 B/P Mean 117 02/24 2307 O2 Delivery Room air 02/24 2307 Temp 36.8 02/24 230 Pulse 104 02/24 2307 Resp 14 02/24 230 Last Documented: Result Date Time Pulse Ox 98 02/25 0500 B/P 142/92 02/25 0500 B/P Mean 108 02/25 0500 O2 Delivery Room air 02/25 0500 Temp 35.6 02/25 0500 Pulse 62 02/25 0500 Resp 18 02/25 0500 All vital signs available at the time of this entry have been reviewed. Condition Improved Clinical Impression Clinical Impression Primary Impression: PCP (phencyclidine) abuse Secondary Impressions: Marijuana abuse, Suicidal ideation Disposition Decision Transfer )( Request Time 213 )( [facility] Date [facility] Discharge/Care Plan Counseled Regarding Diagnosis, Lab results Quality Measures Smoking Cessation Screened, non user Tobacco Screening/Cessation 18 years or older, Denies tobacco use Supervising Physician Note Scribe Statement Geovani Kelley, 02/24/19 9089, scribing for and in the presence of Dr. Bangura. Signed By: Geovani Kelley, 02/24/19 6093 Provider Scribed Statement I personally performed the services described in this documentation and reviewed the documentation that was dictated to the scribe(s) in my presence, and it accurately records my words and actions. Meenakshi Bangura, 02/25/19 Portions of this section were scribed by Geovani Kelley on 02/25/19 at 0213 at 0601 Addendum 1: 02/25/19 0805 by Yohana Pittman MD PT SLEEPING, NO DISTRESS, VSS, SITTER AT BEDSIDE, WAITING FOR PLACEMENT at 0805 Addendum 2: 02/25/19 0852 by Yohana Pittman MD PT NOT SCREENED, REQUESTED AGAIN at 0852 Addendum 3: 02/25/19 1154 by Yohana Pittman MD [facility] RECOMMENDS INPATIENT VOLUNTARY at 1155 Addendum 4: 02/25/19 1254 by Yohana Pittman MD [facility] RECOMMENDS INPT PSYCH at 1255 Addendum 5: 02/26/19 0504 by Reynaldo Griggs MD Patient's vital signs are stable, no acute distress, no current issues. The patient has been interviewed by [facility]. We are currently awaiting placement and transfer. at 0504 Addendum 6: 02/26/19 0759 by Yohana Pittman MD PT SLEEPING, SITTER AT BEDSIDE, TRAY BROUGHT TO PT, WAITING FOR PSYCH PLACEMENT, NO ACUTE COMPLAINTS at 0759 RPT #:[id number] END OF REPORT [facility] 2019-02-24 23:52:00 [facility] ([facility]) EMERGENCY PROVIDER REPORT REPORT#:[id number] REPORT STATUS: Signed DATE:02/24/19 TIME: 2351 PATIENT: CHANNING CALVERT UNIT #: [id number] ROOM/BED: AGE: 34 SEX: M PCP PHYS: No Primary or Family Physician SERVICE AUTHOR: Meenakshi Bangura MD * ALL edits or amendments must be made on the electronic/computer document * See Addendum HPI-Ingestion FB General Confirmed Patient Yes Initial Greet Date/Time 02/24/19 4778 Presentation Chief Complaint EtOH intoxication, smoked "wet" Hx Obtained From Verifying Machine Operator Onset Occurred Today Symptom Duration Since onset Progression since Onset Unchanged Quality Uncomfortable Free Text HPI Notes Free Text HPI Notes 34 y/o M with PMHx of bipolar disorder, schizophrenia, and MHMR, presents to the ED d/t EtOH intoxication, and smoking "wet" STORE MANAGER. Pt states he drank, "a bunch" of EtOH tonight. Per EMS, pt was sending text messages to his girlfriend stating he does not want to live after his girlfriend was "messing with my babies," per pt. Pt not currently in custody. Pt is not compliant with psych medications. Of note, pt has HI hx in the past. HPI and ROS limited due to pt being uncooperative. Pt seen in the [facility]. Portions of this section were scribed by Geovani Kelley on 02/25/19 at 0213 Review of Systems ROS Statements Unable to Obtain ROS Uncooperative Portions of this section were scribed by Geovani Kelley on 02/24/19 at 2356 Past Medical History - Adult Stated Complaint UNKNOWN, "POSSIBLE SI" PER EMS Allergies Coded Allergies: codeine (Intermediate, [facility] 07/06/18) diphenhydramine (From BENADRYL) (Intermediate, [facility] 07/06/18) Home Medications Reported Medications No Known Home Medications Review of Nursing Notes Rev avail, and agree Unable to Obtain Past surgical history Unobtainable due to: Uncooperative Additional Medical History bipolar disorder, schizophrenia, MHMR Alcohol Use Alcohol use Drug Use Marijuana Smoking status for patients 13 years old or older: Current every day smoker Portions of this section were scribed by Geovani Kelley on 02/24/19 at 2356 Physical Exam Vital Signs Vital Signs First Documented: Result Date Time Pulse Ox 100 02/24 2307 B/P 153/100 02/24 2307 B/P Mean 117 02/24 2307 O2 Delivery Room air 02/24 2307 Temp 36.8 02/24 2307 Pulse 104 02/24 2307 Resp 14 02/24 2307 Last Documented: Result Date Time Pulse Ox 98 02/25 0500 B/P 142/92 02/25 050 B/P Mean 108 02/25 050 O2 Delivery Room air 02/25 050 Temp 35.6 02/25 0500 Pulse 62 02/25 0500 Resp 18 02/25 0500 Review of Vital Signs Reviewed, Vital signs abnormal (Elevated BP) Focused PE General/Const General/Const Awake, Alert, Well developed Text/Dict Notes Uncooperative. EtOH on breath. Ears/Nose/Throat Ears/Nose/Throat Airway patent, Mucous membranes moist MS Neck Neck Supple, Full range of motion, No swelling, Non-tender Resp/Chest Respiratory/Chest Breath sounds NL, Breath sounds = bilat, No respiratory distress, No wheezing Cardiovascular Cardiovascular Heart rate NL, Regular rhythm, Heart sounds NL, Pulses = bilaterally Abdomen/GI Abdomen/GI Soft, Non-tender, No guarding, No rebound, No distention Additional PE Skin Skin No rash, Warm, Dry, Intact, No swelling Text/Dict Notes Multiple tattoos including the face. Neurologic Neurologic No motor deficits, No sensory deficits Speech Slurred. Portions of this section were scribed by Geovani Kelley on 02/25/19 at 0003 Interpretation Diagnostics Lab Results Interpretation Results Laboratory Tests 02/25/19 0100: [Embedded Image Not Available] Laboratory Tests: 02/25 02/25 0100 0100 Chemistry Sodium (134.0 - 147.0 mmol/l) 139 Potassium (3.6 - 5.2 mmol/L) 4.3 Chloride (98.0 - 107.0 mmol/l) 104 Carbon Dioxide (21.0 - 33.0 mmol/l) 28.4 Anion Gap (0 - 20) 10.9 BUN (7.0 - 18.0 mg/dl) 12 Creatinine (0.60 - 1.30 mg/dL) 0.92 Est GFR ( Amer) (127 - 133 mL/min) 120 L Est GFR (Non-Af Amer) (105 - 110 mL/min) 99 L Glucose (70.0 - 110.0 mg/dl) 90 Calcium (8.0 - 10.5 mg/dl) 8.5 Total Bilirubin (0.0 - 1.0 mg/dl) 0.8 AST (15.0 - 37.0 Units/L) 22 ALT (12.0 - 78.0 Units/L) 20 Total Alk Phosphatase (50.0 - 136.0 Units/L) 61 Total Protein (6.0 - 8.1 GM/DL) 7.2 Albumin (3.2 - 4.7 gm/dL) 4.0 Hematology WBC (4.5 - 11.0 K/mm3) 13.8 H RBC (4.40 - 5.90 M/mm3) 5.46 Hgb (13.0 - 17.0 gm/dL) 16.0 Hct (36.0 - 48.0 %) 47.3 MCV (80.0 - 94.0 UM3) 86.6 MCH (25.5 - 32.5 UUG) 29.3 MCHC (29.0 - 35.5 gm/dL) 33.8 RDW (11.5 - 15.0 %) 12.9 Plt Count (150 - 400 K/mm3) 226 MPV (7.4 - 10.4 fl) 11.5 H Neut % (Auto) (49.0 - 76.0 %) 77.5 H Lymph % (Auto) (23.0 - 38.0 %) 14.1 L Chester % (Auto) (1.0 - 10.0 %) 7.4 Eos % (Auto) (1.0 - 5.0 %) 0.1 L Baso % (Auto) (0.0 - 1.0 %) 0.4 Neut # (Auto) (2.4 - 6.3 K/mm3) 10.7 H Lymph # (Auto) (1.2 - 4.0 K/mm3) 2.0 Chester # (Auto) (0.0 - 0.6 K/mm3) 1.0 H Eos # (Auto) (0.0 - 0.7 K/MM3) 0.0 Baso # (Auto) (0.0 - 0.2 K/mm3) 0.1 Immature Gran % (0.0 - 0.4 %) 0.5 H Immature Gran # (0.00 - 0.07 x10 3/uL) 0.07 Toxicology Urine Opiates Screen (NEGATIVE) NEGATIVE Urine Methadone Screen (NEGATIVE) NEGATIVE Urine Barbiturates (NEGATIVE) NEGATIVE Ur Phencyclidine Scrn (NEGATIVE) POSITIVE H Ur Amphetamines Screen (NEGATIVE) NEGATIVE U Benzodiazepines Scrn (NEGATIVE) NEGATIVE Urine Cocaine Screen (NEGATIVE) NEGATIVE Urine Cannabinoids (NEGATIVE) POSITIVE H Ethyl Alcohol (0.00 - 0.00 gm/dL) 0.00 Lab Statement Laboratory studies reviewed and considered in the medical decision-making. Point of Care Testing Pulse Oximetry Pulse Ox % 100 On: Room air Interpretation Interpreted by me, Pulse oximetry normal Time 2307 Lab Studies Drug Screen/Level Drug Screen Interpretation Drug screen reviewed Portions of this section were scribed by Geovani Kelley on 02/25/19 at 0213 Re-Evaluation MDM Re-Evaluation/Progress Re-Evaluation/Progress Time of Re-Eval 021 Re-Eval Status Cleared for psych transfer ED Course Medication(s) Ordered Medication(s) Ordered: Central Nervous System Agents Sig/Geraldine Start time Last Medication Dose Route Stop Time Status Admin Lorazepam 2 MG ED Q2H PRN PRN 02/24 2330 AC IM 02/25 2226 Portions of this section were scribed by Geovani Kelley on 02/25/19 at 0213 Patient Discharge Departure Vital Signs/Condition Vital Signs First Documented: Result Date Time Pulse Ox 100 02/24 2307 B/P 153/100 02/24 2307 B/P Mean 117 02/24 230 O2 Delivery Room air 02/24 230 Temp 36.8 02/24 230 Pulse 104 02/24 2307 Resp 14 02/24 230 Last Documented: Result Date Time Pulse Ox 98 02/25 0500 B/P 142/92 02/25 0500 B/P Mean 108 02/25 0500 O2 Delivery Room air 02/25 0500 Temp 35.6 02/25 0500 Pulse 62 02/25 0500 Resp 18 02/25 0500 All vital signs available at the time of this entry have been reviewed. Condition Improved Clinical Impression Clinical Impression Primary Impression: PCP (phencyclidine) abuse Secondary Impressions: Marijuana abuse, Suicidal ideation Disposition Decision Transfer )( Request Time 213 )( Request Date 02/25/19 [facility] transfer Discharge/Care Plan Counseled Regarding Diagnosis, Lab results Quality Measures Smoking Cessation Screened, non user Tobacco Screening/Cessation 18 years or older, Denies tobacco use Supervising Physician Note Scribe Statement Geovani Kelley, 02/24/19 9420, scribing for and in the presence of Dr. Bangura. Signed By: Geovani Kelley, 02/24/19 1633 Provider Scribed Statement I personally performed the services described in this documentation and reviewed the documentation that was dictated to the scribe(s) in my presence, and it accurately records my words and actions. Meenakshi Bangura 02/25/19 Portions of this section were scribed by Geovani Kelley on 02/25/19 at 0213 at 0601 Addendum 1: 02/25/19 0805 by Yohana Pittman MD PT SLEEPING, NO DISTRESS, VSS, SITTER AT BEDSIDE, WAITING FOR PLACEMENT at 0805 Addendum 2: 02/25/19 0852 by Yohana Pittman MD PT NOT SCREENED, REQUESTED AGAIN at 0852 Addendum 3: 02/25/19 1154 by Yohana Pittman MD [facility] RECOMMENDS INPATIENT VOLUNTARY at 1155 Addendum 4: 02/25/19 1254 by Yohana Pittman MD [facility] RECOMMENDS INPT PSYCH at 1255 Addendum 5: 02/26/19 0504 by Reynaldo Griggs MD Patient's vital signs are stable, no acute distress, no current issues. The patient has been interviewed by [facility]. We are currently awaiting placement and transfer. at 0504 Addendum 6: 02/26/19 0759 by Yohana Pittman MD PT SLEEPING, SITTER AT BEDSIDE, TRAY BROUGHT TO PT, WAITING FOR PSYCH PLACEMENT, NO ACUTE COMPLAINTS at 0759 Addendum 7: 02/27/19 0638 by Reynaldo Griggs MD Patient's vital signs are stable, no acute distress, no current issues. The patient has been interviewed by [facility]. We are currently awaiting placement and transfer. at 0638 RPT #:[id number] END OF REPORT [facility] 2019-02-24 23:52:00 [facility] ([facility]) EMERGENCY PROVIDER REPORT REPORT#:[id number] REPORT STATUS: Signed DATE:02/24/19 TIME: 2351 PATIENT: CHANNING CALVERT UNIT #: [id number] ROOM/BED: AGE: 34 SEX: M PCP PHYS: No Primary or Family Physician SERVICE AUTHOR: Meenakshi Bangura MD * ALL edits or amendments must be made on the electronic/computer document * See Addendum HPI-Ingestion FB General Confirmed Patient Yes Initial Greet Date/Time 02/24/192305 Presentation Chief Complaint EtOH intoxication, smoked "wet" Hx Obtained From Verifying Machine Operator Onset Occurred Today Symptom Duration Since onset Progression since Onset Unchanged Quality Uncomfortable Free Text HPI Notes Free Text HPI Notes 34 y/o M with PMHx of bipolar disorder, schizophrenia, and MHMR, presents to the ED d/t EtOH intoxication, and smoking "wet" STORE MANAGER. Pt states he drank, "a bunch" of EtOH tonight. Per EMS, pt was sending text messages to his girlfriend stating he does not want to live after his girlfriend was "messing with my babies," per pt. Pt not currently in custody. Pt is not compliant with psych medications. Of note, pt has HI hx in the past. HPI and ROS limited due to pt being uncooperative. Pt seen in the [facility]. Portions of this section were scribed by Geovani Kelley on 02/25/19 at 0213 Review of Systems ROS Statements Unable to Obtain ROS Uncooperative Portions of this section were scribed by Geovani Kelley on 02/24/19 at 2356 Past Medical History - Adult Stated Complaint UNKNOWN, "POSSIBLE SI" PER EMS Allergies Coded Allergies: codeine (Intermediate, [facility] 07/06/18) diphenhydramine (From BENADRYL) (Intermediate, [facility] 07/06/18) Home Medications Reported Medications No Known Home Medications Review of Nursing Notes Rev avail, and agree Unable to Obtain Past surgical history Unobtainable due to: Uncooperative Additional Medical History bipolar disorder, schizophrenia, MHMR Alcohol Use Alcohol use Drug Use Marijuana Smoking status for patients 13 years old or older: Current every day smoker Portions of this section were scribed by Geovani Kelley on 02/24/19 at 2356 Physical Exam Vital Signs Vital Signs First Documented: Result Date Time Pulse Ox 100 02/24 2307 B/P 153/100 02/24 2307 B/P Mean 117 02/24 2307 O2 Delivery Room air 02/24 2307 Temp 36.8 02/24 2307 Pulse 104 02/24 2307 Resp 14 02/24 2307 Last Documented: Result Date Time Pulse Ox 98 02/25 0500 B/P 142/92 02/25 0500 B/P Mean 108 02/25 0500 O2 Delivery Room air 02/25 500 Temp 35.6 02/25 050 Pulse 62 02/25 050 Resp 18 02/25 0500 Review of Vital Signs Reviewed, Vital signs abnormal (Elevated BP) Focused PE General/Const General/Const Awake, Alert, Well developed Text/Dict Notes Uncooperative. EtOH on breath. Ears/Nose/Throat Ears/Nose/Throat Airway patent, Mucous membranes moist MS Neck Neck Supple, Full range of motion, No swelling, Non-tender Resp/Chest Respiratory/Chest Breath sounds NL, Breath sounds = bilat, No respiratory distress, No wheezing Cardiovascular Cardiovascular Heart rate NL, Regular rhythm, Heart sounds NL, Pulses = bilaterally Abdomen/GI Abdomen/GI Soft, Non-tender, No guarding, No rebound, No distention Additional PE Skin Skin No rash, Warm, Dry, Intact, No swelling Text/Dict Notes Multiple tattoos including the face. Neurologic Neurologic No motor deficits, No sensory deficits Speech Slurred. Portions of this section were scribed by Geovani Kelley on 02/25/19 at 0003 Interpretation Diagnostics Lab Results Interpretation Results Laboratory Tests 02/25/19 0100: [Embedded Image Not Available] Laboratory Tests: 02/25 02/25 0100 0100 Chemistry Sodium (134.0 - 147.0 mmol/l) 139 Potassium (3.6 - 5.2 mmol/L) 4.3 Chloride (98.0 - 107.0 mmol/l) 104 Carbon Dioxide (21.0 - 33.0 mmol/l) 28.4 Anion Gap (0 - 20) 10.9 BUN (7.0 - 18.0 mg/dl) 12 Creatinine (0.60 - 1.30 mg/dL) 0.92 Est GFR ( Amer) (127 - 133 mL/min) 120 L Est GFR (Non-Af Amer) (105 - 110 mL/min) 99 L Glucose (70.0 - 110.0 mg/dl) 90 Calcium (8.0 - 10.5 mg/dl) 8.5 Total Bilirubin (0.0 - 1.0 mg/dl) 0.8 AST (15.0 - 37.0 Units/L) 22 ALT (12.0 - 78.0 Units/L) 20 Total Alk Phosphatase (50.0 - 136.0 Units/L) 61 Total Protein (6.0 - 8.1 GM/DL) 7.2 Albumin (3.2 - 4.7 gm/dL) 4.0 Hematology WBC (4.5 - 11.0 K/mm3) 13.8 H RBC (4.40 - 5.90 M/mm3) 5.46 Hgb (13.0 - 17.0 gm/dL) 16.0 Hct (36.0 - 48.0 %) 47.3 MCV (80.0 - 94.0 UM3) 86.6 MCH (25.5 - 32.5 UUG) 29.3 MCHC (29.0 - 35.5 gm/dL) 33.8 RDW (11.5 - 15.0 %) 12.9 Plt Count (150 - 400 K/mm3) 226 MPV (7.4 - 10.4 fl) 11.5 H Neut % (Auto) (49.0 - 76.0 %) 77.5 H Lymph % (Auto) (23.0 - 38.0 %) 14.1 L Chester % (Auto) (1.0 - 10.0 %) 7.4 Eos % (Auto) (1.0 - 5.0 %) 0.1 L Baso % (Auto) (0.0 - 1.0 %) 0.4 Neut # (Auto) (2.4 - 6.3 K/mm3) 10.7 H Lymph # (Auto) (1.2 - 4.0 K/mm3) 2.0 Chester # (Auto) (0.0 - 0.6 K/mm3) 1.0 H Eos # (Auto) (0.0 - 0.7 K/MM3) 0.0 Baso # (Auto) (0.0 - 0.2 K/mm3) 0.1 Immature Gran % (0.0 - 0.4 %) 0.5 H Immature Gran # (0.00 - 0.07 x10 3/uL) 0.07 Toxicology Urine Opiates Screen (NEGATIVE) NEGATIVE Urine Methadone Screen (NEGATIVE) NEGATIVE Urine Barbiturates (NEGATIVE) NEGATIVE Ur Phencyclidine Scrn (NEGATIVE) POSITIVE H Ur Amphetamines Screen (NEGATIVE) NEGATIVE U Benzodiazepines Scrn (NEGATIVE) NEGATIVE Urine Cocaine Screen (NEGATIVE) NEGATIVE Urine Cannabinoids (NEGATIVE) POSITIVE H Ethyl Alcohol (0.00 - 0.00 gm/dL) 0.00 Lab Statement Laboratory studies reviewed and considered in the medical decision-making. Point of Care Testing Pulse Oximetry Pulse Ox % 100 On: Room air Interpretation Interpreted by me, Pulse oximetry normal Time 2307 Lab Studies Drug Screen/Level Drug Screen Interpretation Drug screen reviewed Portions of this section were scribed by Geovani Kelley on 02/25/19 at 0213 Re-Evaluation MDM Re-Evaluation/Progress Re-Evaluation/Progress Time of Re-Eval 213 Re-Eval Status Cleared for psych transfer ED Course Medication(s) Ordered Medication(s) Ordered: Central Nervous System Agents Sig/Geraldine Start time Last Medication Dose Route Stop Time Status Admin Lorazepam 2 MG ED Q2H PRN PRN 02/24 2330 AC IM 02/25 2226 Portions of this section were scribed by Geovani Kelley on 02/25/19 at 0213 Patient Discharge Departure Vital Signs/Condition Vital Signs First Documented: Result Date Time Pulse Ox 100 02/24 2307 B/P 153/100 02/24 2307 B/P Mean 117 02/24 2307 O2 Delivery Room air 02/24 2307 Temp 36.8 02/24 2307 Pulse 104 02/24 2307 Resp 14 02/24 2307 Last Documented: Result Date Time Pulse Ox 98 02/25 0500 B/P 142/92 02/25 0500 B/P Mean 108 02/25 0500 O2 Delivery Room air 02/25 0500 Temp 35.6 02/25 0500 Pulse 62 02/25 0500 Resp 18 02/25 0500 All vital signs available at the time of this entry have been reviewed. Condition Improved Clinical Impression Clinical Impression Primary Impression: PCP (phencyclidine) abuse Secondary Impressions: Marijuana abuse, Suicidal ideation Disposition Decision Transfer )( Request Time 213 )( Request Date 02/25/19 [facility] Psych transfer Discharge/Care Plan Counseled Regarding Diagnosis, Lab results Quality Measures Smoking Cessation Screened, non user Tobacco Screening/Cessation 18 years or older, Denies tobacco use Supervising Physician Note Scribe Statement Geovani Kelley, 02/24/19 5557, scribing for and in the presence of Dr. Bangura. Signed By: Geovani Kelley, 02/24/192358 Provider Scribed Statement I personally performed the services described in this documentation and reviewed the documentation that was dictated to the scribe(s) in my presence, and it accurately records my words and actions. Meenakshi Bangura, 02/25/19 Portions of this section were scribed by Geovani Kelley on 02/25/19 at 0213 at 0601 Addendum 1: 02/25/19 0805 by Yohana Pittman MD PT SLEEPING, NO DISTRESS, VSS, SITTER AT BEDSIDE, WAITING FOR PLACEMENT at 0805 Addendum 2: 02/25/19 0852 by Yohana Pittman MD PT NOT SCREENED, REQUESTED AGAIN at 0852 Addendum 3: 02/25/19 1154 by Yohana Pittman MD [facility] RECOMMENDS INPATIENT VOLUNTARY at 1155 Addendum 4: 02/25/19 1254 by Yohana Pittman MD [facility] RECOMMENDS INPT PSYCH at 1255 Addendum 5: 02/26/19 0504 by Reynaldo Griggs MD Patient's vital signs are stable, no acute distress, no current issues. The patient has been interviewed by [facility]. We are currently awaiting placement and transfer. at 0504 Addendum 6: 02/26/19 0759 by Yohana Pittman MD PT SLEEPING, SITTER AT BEDSIDE, TRAY BROUGHT TO PT, WAITING FOR PSYCH PLACEMENT, NO ACUTE COMPLAINTS at 0759 Addendum 7: 02/27/19 0638 by Reynaldo Griggs MD Patient's vital signs are stable, no acute distress, no current issues. The patient has been interviewed by [facility]. We are currently awaiting placement and transfer. at 0638 Addendum 8: 02/27/19 0718 by Shaunna Cook MD pt resting, NAD, VSS, calm, cooperative, sitter at bedside, awaiting psych placement at 0718 RPT #:[id number] END OF REPORT [facility] 2019-02-24 23:52:00 [facility] ([facility]) EMERGENCY PROVIDER REPORT REPORT#:[id number] REPORT STATUS: Signed DATE:02/24/19 TIME: 2351 PATIENT: CHANNING CALVERT UNIT #: [id number] ROOM/BED: AGE: 34 SEX: M PCP PHYS: No Primary or Family Physician SERVICE AUTHOR: Meenakshi Bangura MD * ALL edits or amendments must be made on the electronic/computer document * See Addendum HPI-Ingestion FB General Confirmed Patient Yes Initial Greet Date/Time 02/24/192305 Presentation Chief Complaint EtOH intoxication, smoked "wet" Hx Obtained From Verifying Machine Operator Onset Occurred Today Symptom Duration Since onset Progression since Onset Unchanged Quality Uncomfortable Free Text HPI Notes Free Text HPI Notes 34 y/o M with PMHx of bipolar disorder, schizophrenia, and MHMR, presents to the ED d/t EtOH intoxication, and smoking "wet" STORE MANAGER. Pt states he drank, "a bunch" of EtOH tonight. Per EMS, pt was sending text messages to his girlfriend stating he does not want to live after his girlfriend was "messing with my babies," per pt. Pt not currently in custody. Pt is not compliant with psych medications. Of note, pt has HI hx in the past. HPI and ROS limited due to pt being uncooperative. Pt seen in the [facility]. Portions of this section were scribed by Geovani Kelley on 02/25/19 at 0213 Review of Systems ROS Statements Unable to Obtain ROS Uncooperative Portions of this section were scribed by Geovani Kelley on 02/24/19 at 2356 Past Medical History - Adult Stated Complaint UNKNOWN, "POSSIBLE SI" PER EMS Allergies Coded Allergies: codeine (Intermediate, HIVES 07/06/18) diphenhydramine (From BENADRYL) (Intermediate, HIVES 07/06/18) Home Medications Reported Medications No Known Home Medications Review of Nursing Notes Rev avail, and agree Unable to Obtain Past surgical history Unobtainable due to: Uncooperative Additional Medical History bipolar disorder, schizophrenia, MHMR Alcohol Use Alcohol use Drug Use Marijuana Smoking status for patients 13 years old or older: Current every day smoker Portions of this section were scribed by Geovani Kelley on 02/24/19 at 2356 Physical Exam Vital Signs Vital Signs First Documented: Result Date Time Pulse Ox 100 02/24 2307 B/P 153/100 02/24 2307 B/P Mean 117 02/24 2307 O2 Delivery Room air 02/24 2307 Temp 36.8 02/24 2307 Pulse 104 02/24 2307 Resp 14 02/24 2307 Last Documented: Result Date Time Pulse Ox 98 02/25 050 B/P 142/92 02/25 050 B/P Mean 108 02/25 050 O2 Delivery Room air 02/25 500 Temp 35.6 02/25 500 Pulse 62 02/25 050 Resp 18 02/25 050 Review of Vital Signs Reviewed, Vital signs abnormal (Elevated BP) Focused PE General/Const General/Const Awake, Alert, Well developed Text/Dict Notes Uncooperative. EtOH on breath. Ears/Nose/Throat Ears/Nose/Throat Airway patent, Mucous membranes moist MS Neck Neck Supple, Full range of motion, No swelling, Non-tender Resp/Chest Respiratory/Chest Breath sounds NL, Breath sounds = bilat, No respiratory distress, No wheezing Cardiovascular Cardiovascular Heart rate NL, Regular rhythm, Heart sounds NL, Pulses = bilaterally Abdomen/GI Abdomen/GI Soft, Non-tender, No guarding, No rebound, No distention Additional PE Skin Skin No rash, Warm, Dry, Intact, No swelling Text/Dict Notes Multiple tattoos including the face. Neurologic Neurologic No motor deficits, No sensory deficits Speech Slurred. Portions of this section were scribed by Geovani Kelley on 02/25/19 at 0003 Interpretation Diagnostics Lab Results Interpretation Results Laboratory Tests 02/25/19 010: [Embedded Image Not Available] Laboratory Tests: 02/25 0100 Chemistry Sodium (134.0 - 147.0 mmol/l) 139 Potassium (3.6 - 5.2 mmol/L) 4.3 Chloride (98.0 - 107.0 mmol/l) 104 Carbon Dioxide (21.0 - 33.0 mmol/l) 28.4 Anion Gap (0 - 20) 10.9 BUN (7.0 - 18.0 mg/dl) 12 Creatinine (0.60 - 1.30 mg/dL) 0.92 Est GFR ( Amer) (127 - 133 mL/min) 120 L Est GFR (Non-Af Amer) (105 - 110 mL/min) 99 L Glucose (70.0 - 110.0 mg/dl) 90 Calcium (8.0 - 10.5 mg/dl) 8.5 Total Bilirubin (0.0 - 1.0 mg/dl) 0.8 AST (15.0 - 37.0 Units/L) 22 ALT (12.0 - 78.0 Units/L) 20 Total Alk Phosphatase (50.0 - 136.0 Units/L) 61 Total Protein (6.0 - 8.1 GM/DL) 7.2 Albumin (3.2 - 4.7 gm/dL) 4.0 Hematology WBC (4.5 - 11.0 K/mm3) 13.8 H RBC (4.40 - 5.90 M/mm3) 5.46 Hgb (13.0 - 17.0 gm/dL) 16.0 Hct (36.0 - 48.0 %) 47.3 MCV (80.0 - 94.0 UM3) 86.6 MCH (25.5 - 32.5 UUG) 29.3 MCHC (29.0 - 35.5 gm/dL) 33.8 RDW (11.5 - 15.0 %) 12.9 Plt Count (150 - 400 K/mm3) 226 MPV (7.4 - 10.4 fl) 11.5 H Neut % (Auto) (49.0 - 76.0 %) 77.5 H Lymph % (Auto) (23.0 - 38.0 %) 14.1 L Chester % (Auto) (1.0 - 10.0 %) 7.4 Eos % (Auto) (1.0 - 5.0 %) 0.1 L Baso % (Auto) (0.0 - 1.0 %) 0.4 Neut # (Auto) (2.4 - 6.3 K/mm3) 10.7 H Lymph # (Auto) (1.2 - 4.0 K/mm3) 2.0 Chester # (Auto) (0.0 - 0.6 K/mm3) 1.0 H Eos # (Auto) (0.0 - 0.7 K/MM3) 0.0 Baso # (Auto) (0.0 - 0.2 K/mm3) 0.1 Immature Gran % (0.0 - 0.4 %) 0.5 H Immature Gran # (0.00 - 0.07 x10 3/uL) 0.07 Toxicology Urine Opiates Screen (NEGATIVE) NEGATIVE Urine Methadone Screen (NEGATIVE) NEGATIVE Urine Barbiturates (NEGATIVE) NEGATIVE Ur Phencyclidine Scrn (NEGATIVE) POSITIVE H Ur Amphetamines Screen (NEGATIVE) NEGATIVE U Benzodiazepines Scrn (NEGATIVE) NEGATIVE Urine Cocaine Screen (NEGATIVE) NEGATIVE Urine Cannabinoids (NEGATIVE) POSITIVE H Ethyl Alcohol (0.00 - 0.00 gm/dL) 0.00 Lab Statement Laboratory studies reviewed and considered in the medical decision-making. Point of Care Testing Pulse Oximetry Pulse Ox % 100 On: Room air Interpretation Interpreted by nh, Pulse oximetry normal Time 2306 Lab Studies Drug Screen/Level Drug Screen Interpretation Drug screen reviewed Portions of this section were scribed by Geovani Kelley on 02/25/19 at 0213 Re-Evaluation MDM Re-Evaluation/Progress Re-Evaluation/Progress Time of Re-Eval 4 Re-Eval Status Cleared for psych transfer ED Course Medication(s) Ordered Medication(s) Ordered: Central Nervous System Agents Sig/Geraldine Start time Last Medication Dose Route Stop Time Status Admin Lorazepam 2 MG ED Q2H PRN PRN 02/24 2330 AC IM 02/256 Portions of this section were scribed by Geovani Kelley on 02/25/19 at 0213 Patient Discharge Departure Vital Signs/Condition Vital Signs First Documented: Result Date Time Pulse Ox 100 02/24 2307 B/P 153/100 02/24 2307 B/P Mean 117 02/24 2307 O2 Delivery Room air 02/24 2307 Temp 36.8 02/24 2307 Pulse 104 02/24 2307 Resp 14 02/24 2307 Last Documented: Result Date Time Pulse Ox 98 02/25 0500 B/P 142/92 02/25 050 B/P Mean 108 02/25 050 O2 Delivery Room air 02/25 500 Temp 35.6 02/25 0500 Pulse 62 02/25 0500 Resp 18 02/25 0500 All vital signs available at the time of this entry have been reviewed. Condition Improved Clinical Impression Clinical Impression Primary Impression: PCP (phencyclidine) abuse Secondary Impressions: Marijuana abuse, Suicidal ideation Disposition Decision Transfer )( Request Time 021 )( Request Date [facility] Discharge/Care Plan Counseled Regarding Diagnosis, Lab results Quality Measures Smoking Cessation Screened, non user Tobacco Screening/Cessation 18 years or older, Denies tobacco use Supervising Physician Note Scribe Statement Geovani Kelley, 02/24/19 2359, scribing for and in the presence of Dr. Bangura. Signed By: Geovani Kelley, 02/24/19 2352 Provider Scribed Statement I personally performed the services described in this documentation and reviewed the documentation that was dictated to the scribe(s) in my presence, and it accurately records my words and actions. Meenakshi Bangura 02/25/19 Portions of this section were scribed by Geovani Kelley on 02/25/19 at 0213 at 0601 Addendum 1: 02/25/19 0805 by Yohana Pittman MD PT SLEEPING, NO DISTRESS, VSS, SITTER AT BEDSIDE, WAITING FOR PLACEMENT at 0805 Addendum 2: 02/25/19 0852 by Yohana Pittman MD PT NOT SCREENED, REQUESTED AGAIN at 0852 Addendum 3: 02/25/19 1154 by Yohana Pittman MD [facility] RECOMMENDS INPATIENT VOLUNTARY at 1155 Addendum 4: 02/25/19 1254 by Yohana Pittman MD [facility] RECOMMENDS INPT PSYCH at 1255 Addendum 5: 02/26/19 0504 by Reynaldo Griggs MD Patient's vital signs are stable, no acute distress, no current issues. The patient has been interviewed by [facility]. We are currently awaiting placement and transfer. at 0504 Addendum 6: 02/26/19 0759 by Yohana Pittman MD PT SLEEPING, SITTER AT BEDSIDE, TRAY BROUGHT TO PT, WAITING FOR PSYCH PLACEMENT, NO ACUTE COMPLAINTS at 0759 Addendum 7: 02/27/19 0638 by Reynaldo Griggs MD Patient's vital signs are stable, no acute distress, no current issues. The patient has been interviewed by [facility]. We are currently awaiting placement and transfer. at 0638 Addendum 8: 02/27/19 0718 by Shaunna Cook MD pt resting, NAD, VSS, calm, cooperative, sitter at bedside, awaiting psych placement at 0718 Addendum 9: 02/27/19 1650 by Shaunna Cook MD PTSTATES HE DOES NOT WANT TO HURT HIMSELF. HE STATES HE WAS ON PCP WHEN HE THREATENED THAT, AND NOW THAT DRUGS WORE OFF, HE HAS NO THOUGHTS OF WANTING TO HURT HIMSELF OR OTHERS. COUNSELED PT TO QUIT USING ALL DRUGS, PT AGREES, AND PT AGREES TO SIGN NO HARM CONTRACT AND TO F/U OUTPT WITH PSYCH. PT'S GIRLFRIEND AT BEDSIDE, AND SHE STATES PT NEVER TOLD HER HE HAD ANY INTENTION OF HURTING HIMSELF. SHE AGREES TO TAKE PT HOME. at 1652 RPT #:[id number] END OF REPORT [facility] 2019-02-24 23:52:00 [facility] ([facility]) EMERGENCY PROVIDER REPORT REPORT#:[id number] REPORT STATUS: Signed DATE:02/24/19 TIME: 2351 PATIENT: CHANNING CALVERT UNIT #: [id number] ROOM/BED: AGE: 34 SEX: M PCP PHYS: No Primary or Family Physician SERVICE AUTHOR: Meenakshi Bangura MD * ALL edits or amendments must be made on the electronic/computer document * See Addendum HPI-Ingestion FB General Confirmed Patient Yes Initial Greet Date/Time 02/24/19 2306 Presentation Chief Complaint EtOH intoxication, smoked "wet" Hx Obtained From Verifying Machine Operator Onset Occurred Today Symptom Duration Since onset Progression since Onset Unchanged Quality Uncomfortable Free Text HPI Notes Free Text HPI Notes 34 y/o M with PMHx of bipolar disorder, schizophrenia, and MHMR, presents to the ED d/t EtOH intoxication, and smoking "wet" STORE MANAGER. Pt states he drank, "a bunch" of EtOH tonight. Per EMS, pt was sending text messages to his girlfriend stating he does not want to live after his girlfriend was "messing with my babies," per pt. Pt not currently in custody. Pt is not compliant with psych medications. Of note, pt has HI hx in the past. HPI and ROS limited due to pt being uncooperative. Pt seen in the [facility]. Portions of this section were scribed by Geovani Kelley on 02/25/19 at 0213 Review of Systems ROS Statements Unable to Obtain ROS Uncooperative Portions of this section were scribed by Geovani Kelley on 02/24/19 at 2356 Past Medical History - Adult Stated Complaint UNKNOWN, "POSSIBLE SI" PER EMS Allergies Coded Allergies: codeine (Intermediate, HIVES 07/06/18) diphenhydramine (From BENADRYL) (Intermediate, HIVES 07/06/18) Home Medications Reported Medications No Known Home Medications Review of Nursing Notes Rev avail, and agree Unable to Obtain Past surgical history Unobtainable due to: Uncooperative Additional Medical History bipolar disorder, schizophrenia, MHMR Alcohol Use Alcohol use Drug Use Marijuana Smoking status for patients 13 years old or older: Current every day smoker Portions of this section were scribed by Geovani Kelley on 02/24/19 at 2356 Physical Exam Vital Signs Vital Signs First Documented: Result Date Time Pulse Ox 100 02/24 2307 B/P 153/100 02/24 2307 B/P Mean 117 02/24 2307 O2 Delivery Room air 02/24 2307 Temp 36.8 02/24 2307 Pulse 104 02/24 2307 Resp 14 02/24 2307 Last Documented: Result Date Time Pulse Ox 98 02/25 0500 B/P 142/92 02/25 0500 B/P Mean 108 02/25 0500 O2 Delivery Room air 02/25 500 Temp 35.6 02/25 0500 Pulse 62 02/25 0500 Resp 18 02/25 0500 Review of Vital Signs Reviewed, Vital signs abnormal (Elevated BP) Focused PE General/Const General/Const Awake, Alert, Well developed Text/Dict Notes Uncooperative. EtOH on breath. Ears/Nose/Throat Ears/Nose/Throat Airway patent, Mucous membranes moist MS Neck Neck Supple, Full range of motion, No swelling, Non-tender Resp/Chest Respiratory/Chest Breath sounds NL, Breath sounds = bilat, No respiratory distress, No wheezing Cardiovascular Cardiovascular Heart rate NL, Regular rhythm, Heart sounds NL, Pulses = bilaterally Abdomen/GI Abdomen/GI Soft, Non-tender, No guarding, No rebound, No distention Additional PE Skin Skin No rash, Warm, Dry, Intact, No swelling Text/Dict Notes Multiple tattoos including the face. Neurologic Neurologic No motor deficits, No sensory deficits Speech Slurred. Portions of this section were scribed by Geovani Kelley on 02/25/19 at 0003 Interpretation Diagnostics Lab Results Interpretation Results Laboratory Tests 02/25/19 0100: [Embedded Image Not Available] Laboratory Tests: 02/25 02/25 0100 0100 Chemistry Sodium (134.0 - 147.0 mmol/l) 139 Potassium (3.6 - 5.2 mmol/L) 4.3 Chloride (98.0 - 107.0 mmol/l) 104 Carbon Dioxide (21.0 - 33.0 mmol/l) 28.4 Anion Gap (0 - 20) 10.9 BUN (7.0 - 18.0 mg/dl) 12 Creatinine (0.60 - 1.30 mg/dL) 0.92 Est GFR ( Amer) (127 - 133 mL/min) 120 L Est GFR (Non-Af Amer) (105 - 110 mL/min) 99 L Glucose (70.0 - 110.0 mg/dl) 90 Calcium (8.0 - 10.5 mg/dl) 8.5 Total Bilirubin (0.0 - 1.0 mg/dl) 0.8 AST (15.0 - 37.0 Units/L) 22 ALT (12.0 - 78.0 Units/L) 20 Total Alk Phosphatase (50.0 - 136.0 Units/L) 61 Total Protein (6.0 - 8.1 GM/DL) 7.2 Albumin (3.2 - 4.7 gm/dL) 4.0 Hematology WBC (4.5 - 11.0 K/mm3) 13.8 H RBC (4.40 - 5.90 M/mm3) 5.46 Hgb (13.0 - 17.0 gm/dL) 16.0 Hct (36.0 - 48.0 %) 47.3 MCV (80.0 - 94.0 UM3) 86.6 MCH (25.5 - 32.5 UUG) 29.3 MCHC (29.0 - 35.5 gm/dL) 33.8 RDW (11.5 - 15.0 %) 12.9 Plt Count (150 - 400 K/mm3) 226 MPV (7.4 - 10.4 fl) 11.5 H Neut % (Auto) (49.0 - 76.0 %) 77.5 H Lymph % (Auto) (23.0 - 38.0 %) 14.1 L Chester % (Auto) (1.0 - 10.0 %) 7.4 Eos % (Auto) (1.0 - 5.0 %) 0.1 L Baso % (Auto) (0.0 - 1.0 %) 0.4 Neut # (Auto) (2.4 - 6.3 K/mm3) 10.7 H Lymph # (Auto) (1.2 - 4.0 K/mm3) 2.0 Chester # (Auto) (0.0 - 0.6 K/mm3) 1.0 H Eos # (Auto) (0.0 - 0.7 K/MM3) 0.0 Baso # (Auto) (0.0 - 0.2 K/mm3) 0.1 Immature Gran % (0.0 - 0.4 %) 0.5 H Immature Gran # (0.00 - 0.07 x10 3/uL) 0.07 Toxicology Urine Opiates Screen (NEGATIVE) NEGATIVE Urine Methadone Screen (NEGATIVE) NEGATIVE Urine Barbiturates (NEGATIVE) NEGATIVE Ur Phencyclidine Scrn (NEGATIVE) POSITIVE H Ur Amphetamines Screen (NEGATIVE) NEGATIVE U Benzodiazepines Scrn (NEGATIVE) NEGATIVE Urine Cocaine Screen (NEGATIVE) NEGATIVE Urine Cannabinoids (NEGATIVE) POSITIVE H Ethyl Alcohol (0.00 - 0.00 gm/dL) 0.00 Lab Statement Laboratory studies reviewed and considered in the medical decision-making. Point of Care Testing Pulse Oximetry Pulse Ox % 100 On: Room air Interpretation Interpreted by me, Pulse oximetry normal Time 2307 Lab Studies Drug Screen/Level Drug Screen Interpretation Drug screen reviewed Portions of this section were scribed by Geovani Kelley on 02/25/19 at 0213 Re-Evaluation MDM Re-Evaluation/Progress Re-Evaluation/Progress Time of Re-Eval 0214 Re-Eval Status Cleared for psych transfer ED Course Medication(s) Ordered Medication(s) Ordered: Central Nervous System Agents Sig/Geraldine Start time Last Medication Dose Route Stop Time Status Admin Lorazepam 2 MG ED Q2H PRN PRN 02/24 2330 AC IM 02/25 2226 Portions of this section were scribed by Geovani Kelley on 02/25/19 at 0213 Patient Discharge Departure Vital Signs/Condition Vital Signs First Documented: Result Date Time Pulse Ox 100 02/24 2307 B/P 153/100 02/24 2307 B/P Mean 117 02/247 O2 Delivery Room air 02/24 2307 Temp 36.8 02/24 230 Pulse 104 02/24 2307 Resp 14 02/24 2307 Last Documented: Result Date Time Pulse Ox 98 02/25 0500 B/P 142/92 02/25 0500 B/P Mean 108 02/25 0500 O2 Delivery Room air 02/25 0500 Temp 35.6 02/25 0500 Pulse 62 02/25 0500 Resp 18 02/25 0500 All vital signs available at the time of this entry have been reviewed. Condition Improved Clinical Impression Clinical Impression Primary Impression: PCP (phencyclidine) abuse Secondary Impressions: Marijuana abuse, Suicidal ideation Disposition Decision Transfer )( Request Time 213 )( Request Date 02/25/19 [facility] transfer Discharge/Care Plan Counseled Regarding Diagnosis, Lab results Quality Measures Smoking Cessation Screened, non user Tobacco Screening/Cessation 18 years or older, Denies tobacco use Supervising Physician Note Scribe Statement Geovani Kelley, 02/24/19 2161, scribing for and in the presence of Dr. Bangura. Signed By: Geovani Kelley, 02/24/192358 Provider Scribed Statement I personally performed the services described in this documentation and reviewed the documentation that was dictated to the scribe(s) in my presence, and it accurately records my words and actions. Meenakshi Bangura, 02/25/19 Portions of this section were scribed by Geovani Kelley on 02/25/19 at 0213 at 0601 Addendum 1: 02/25/19 0805 by Yohana Pittman MD PT SLEEPING, NO DISTRESS, VSS, SITTER AT BEDSIDE, WAITING FOR PLACEMENT at 0805 Addendum 2: 02/25/19 0852 by Yohana Pittman MD PT NOT SCREENED, REQUESTED AGAIN at 0852 Addendum 3: 02/25/19 1154 by Yohana Pittman MD [facility] RECOMMENDS INPATIENT VOLUNTARY at 1155 Addendum 4: 02/25/19 1254 by Yohana Pittman MD [facility] RECOMMENDS INPT PSYCH at 1255 Addendum 5: 02/26/19 0504 by Reynaldo Griggs MD Patient's vital signs are stable, no acute distress, no current issues. The patient has been interviewed by [facility]. We are currently awaiting placement and transfer. at 0504 Addendum 6: 02/26/19 0759 by Yohana Pittman MD PT SLEEPING, SITTER AT BEDSIDE, TRAY BROUGHT TO PT, WAITING FOR PSYCH PLACEMENT, NO ACUTE COMPLAINTS at 0759 Addendum 7: 02/27/19 0638 by Reynaldo Griggs MD Patient's vital signs are stable, no acute distress, no current issues. The patient has been interviewed by [facility]. We are currently awaiting placement and transfer. at 0638 Addendum 8: 02/27/19 0718 by Shaunna Cook MD pt resting, NAD, VSS, calm, cooperative, sitter at bedside, awaiting psych placement at 0718 Addendum 9: 02/27/19 1650 by Shaunna Cook MD PTSTATES HE DOES NOT WANT TO HURT HIMSELF. HE STATES HE WAS ON PCP WHEN HE THREATENED THAT, AND NOW THAT DRUGS WORE OFF, HE HAS NO THOUGHTS OF WANTING TO HURT HIMSELF OR OTHERS. COUNSELED PT TO QUIT USING ALL DRUGS, PT AGREES, AND PT AGREES TO SIGN NO HARM CONTRACT AND TO F/U OUTPT WITH PSYCH. PT'S GIRLFRIEND AT BEDSIDE, AND SHE STATES PT NEVER TOLD HER HE HAD ANY INTENTION OF HURTING HIMSELF. SHE AGREES TO TAKE PT HOME. at 1652 Addendum 10: 02/27/19 1716 by Shaunna Cook MD PT REQUESTED REFILLS ON SEROQUEL, PROZAC, AND DEPAKOTE, SO THEY WERE RX'D WITH D /C PAPERS. at 1717 RPT #:[id number] END OF REPORT [facility]
--- NOTE | 2024-10-05 07:56 | ER ---
Nurse's Notes [facility] Name: Channing Ron Age: 39 yrs Sex: Male : 1985 Arrival Date: 10/05/2024 Time: 07:24 Bed Waiting Private MD: Diagnosis: Assessment: 10/05 07:33 Reassessment: Notified pt that I would be right with him. jl7 07:41 Reassessment: Called from [employer], no answer, unable to locate. jl7 07:49 Reassessment: Called from [employer], no answer. jl7 ED Course: 07:27 Patient arrived in ED. im 07:54 Patient's name was called from ER [employer]. No response. Unable to locate patient. Will jl7 disposition as left without being seen by a provider. Administered Medications: No medications were administered Outcome: 07:55 Patient left the ED. jl7 Signatures: Gertrude Miller RN RN jl7 Sara Shay
== END 2024-10-05 07:55 | disposition left against medical advice (07) ==
LOC: ER 07:24
DX: Z02.9 Encounter for administrative examinations, unspecified (principal)

== ENCOUNTER 2025-01-15 21:43 | Emergency (ER) | payer SELFPAY ==
--- OUTSIDE RECORDS SUMMARY | 2025-01-15 21:47 | XMS REPORT | Continuity of Care Document ---
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 [...] DIPSTICK (test code = MARLEN) 150 Juaquin/micL Juaquni/micL NEGATIVE A UA PH DIPSTICK (test code [...] BACTERIA (test code = BACU) NONE RPR [id number] 23:54:31* Test Item Value Reference Range Interpretation [...] code = Expiration Dt) 08.31.2020 N Lipid [id number] 15:40:15* Test Item Value Reference Range Interpretation Comme nts Cholesterol Total (test code = Cholesterol Total) 123 mg/dL 0-200 RISK OF HEART DISEASEPublished by [employer] Heart Association Analyte Optimal Borderline Increased RiskCHOL [...] is LDL/HDL Ratio=LDL Calc/HDL Chol Thyroid Stimulating [id number] 15:40:15* Test Item Value Reference Range Interpretation Comme nts TSH (test code = TSH) 0.869 mIU/mL 0.270-4.200 Urine Drug [id number] 20:11:25* Test Item Value Reference Range Interpretation [...] a separate confirmatory test if desired. Alcohol [id number] 19:27:54* Test Item Value Reference Range Interpretation Comme nts Ethanol Level (test code = Ethanol Level) 0.06 g/dL 0.00-0.01 H Intoxicated 0.08 0 g/dL or more Ethanol Inst (test code = Ethanol Inst) 61 N Comprehensive Metabolic [id number] 19:27:53* Test Item Value Reference Range Interpretation [...] = A/G Ratio) 1.9 ratio N Creatine [id number] 19:27:53* Test Item Value Reference Range Interpretation Comme nts CK (test code = CK) 77 U/L 39-308 Comprehensive Metabolic [id number] 19:27:53* Test Item Value Reference Range Interpretation [...] is not provided, and the patient is -Turkmen, multiply by 1.212. If sex is not [...] the National Kidney Foundation, http://nkdep.nih.gov Comprehensive Metabolic [id number] 19:27:53* Test Item Value Reference Range Interpretation [...] is not provided, and the patient is -Turkmen, multiply by 1.212. If sex is not [...] is not provided, and the patient is -Turkmen, multiply by 1.212. If sex is not [...] Kidney Foundation, http://nkdep.nih.gov Urinalysis with Microscopic if ahygzlznq5314-35-15 19:25:38* Test Item Value Reference Range Interpretation [...] cre ated by rule GL_SJM_UA_MICRO_IN D Automated Ritkopwfpdif1826-88-36 19:25:03* Test Item Value Reference Range Interpretation Comme nts Neutro Auto (test code = Mamadou tro Auto) 47.9 % 36.0-70.0 Lymph Auto (test code = Lymph Auto) 42.5 % 12.0-44.0 [place] Auto (test code = [place] Auto) 6.3 % 0.0-11.0 Eos, Auto (test code = Eos, Auto) 2.4 % 0.0-7.0 Basophil Auto (test code = B asophil Auto) 0.7 % 0.0-2.0 Neutro Absolute (test code = Neutro Absolute) 2.6 x10 1.6-7.4 Lymph Absolute (test code = Lymph Absolute) 2.30 x10 .50-4.60 [place] Absolute (test code = M tim Absolute) .34 x10 .00-1.20 Eos Absolute (test code = Eo s Absolute) 0.13 x10 0.00-0.74 Baso Absolute (test code = B aso Absolute) 0.04 x10 0.00-0.21 IG [id number] 19:25:03* Test Item Value Reference Range Interpretation Comme nts IG (test code = IG) 0.2 % 0.0-5.0 IG Abs (test code = IG Abs) 0 x10 N Complete Blood Count with [id number] 19:25:02* Test Item Value Reference Range Interpretation [...] = IPF) 0 % N COMPREHENSIVE METABOLIC [id number] 18:08:00* Test Item Value Reference Range Interpretation [...] code = ALKP) 78 IUnit/L 20-125 N [id number] 18:08:00* Test Item Value Reference Range Interpretation Comme nts LIPASE (test code = LIP) 100 IUnit/L 73-393 N [id number] 18:08:00* Test Item Value Reference Range Interpretation Comme nts TROPONIN-I (test code = TROPI) < 0.015 ng/mL 0.000-0.045 N Negative: <= 0.0 45 Positive: >= 0.046 Correlation with serial results, other cardiac markers andclinical findings is necessary to determine the clinicalsignificance of this result. Results using different methodologies should not be comparedto one another as quantitative results may vary by method. [id number] 18:06:00* Test Item Value Reference Range Interpretation Comme nts D-DIMER (test code = DDIMER) 227 ng/mlFEU <=500 N THROMBOSIS AND/O R PULMONARY EMBOLISM AND THE CLINICAL CUT- OFF VALUE FOR EXCLUSION (500 ng/mL FEU) OF THESE CONDITIONSIS VALIDATED BY THE FASHION SHOW DIRECTOR OF THE METHOD. A NEGATIVE D-DIMER RESULT WHEN COMBINED WITH A CLINICALASSESSMENT OF LOW PRETEST PROBABILITY HAS BEEN SHOWN TO HAVEA HIGH NEGATIVE PREDICTIVE VALUE OF DVT OR PE. D-DIMER VALUES >500 ng/mL FEU ARE NOT DIAGNOSTIC FOR DVT, PEor DIC WITHOUT OTHER CONFIRMATORY TESTS AND APPROPRIATECLINICAL EUALUATIONS. - XR CHEST 2 [id number] 17:54:00FAX: Oscar Phan [phone] [place]: St: REG Name: CHANNING CALVERT [facility] : 1985 Age/S: 34/M [address] [place] [address] Bl Unit #: [id number] Loc: [place] [address] Phys: Oscar Phan Acct: [id number] Dis Date: Status: REG ER PHONE #: [phone] Exam Date: 08/03/2019 174 FAX #: [phone] Reason: cough for two weeks with fever EXAMS: CPT CODE: [id number] XR CHEST 2 V 87064 Clinical Indication: Cough, fever. Comparison: 01/25/2014. Impression: Chest, 2 views. Lungs are clear. No consolidation, pleural effusion, or pneumothorax. Cardiomediastinal silhouette is unremarkable. No acute osseous abnormality. SL: [id number] at 1754 Reported and signed by: Liss Marcial M.D. CC: Oscar MONTES Technologist: RT Andrew(Radha) Trnscrd Date/Time/By: 08/03/2019 (1753) : By: [email or web address] Orig Print D/T: S: 08/03/2019 (047) PAGE 1 Signed ReportCBC W/AUTO [id number] 17:48:00* Test Item Value Reference Range Interpretation [...] = MDIFF) NO DRUGS OF ABUSE SCREEN [id number] 01:39:00* Test Item Value Reference Range Interpretation [...] cut-o ff concentration: 300 ng/mL COMPREHENSIVE METABOLIC [id number] 01:39:00* Test Item Value Reference Range Interpretation [...] code = ALKP) 61 Units/L 50.0-136.0 N [id number] 01:39:00* Test Item Value Reference Range Interpretation Comme nts ALCOHOL (test code = ALC) 0.00 gm/dL 0.00-0.00 N ETHYL ALCOHOL VA LUES - INTERPRETATION: 0.050 GM/DL - NOT INTOXICATED 0.100 GM/DL - INTOXICATED 0.350-0.450 GM/DL - SEVERELY INTOXICATED 0.550 GM/DL- FATAL INTOXICATION COMPREHENSIVE METABOLIC [id number] 01:32:00* Test Item Value Reference Range Interpretation [...] ( test code = ALKP) Units/L 50.0-136.0 [id number] 01:32:00* Test Item Value Reference Range Interpretation Comme nts ALCOHOL (test code = ALC) gm/dL 0.00-0.00 CBC W/AUTO [id number] 01:26:00* Test Item Value Reference Range Interpretation [...] 0.0-0.2 N XR Chest 1 View Portable [facility] BRYMitchellme: CHANNING CALVERT : 1985 [facility]: CHANNING CALVERT [address] Phys: [place] [address] : 1985 Age: 37 SEX:M [phone] Exam Date: 12/03/22 Status:REG ER Acct: [id number] Loc: ERS Pt Unit #: [id number] Report #: [id number] CC: LISS BHANDARI MD IMAGING SERVICES REPORT Report Status: Signed Order # Category/Exam [id number] RAD/XR Chest 1 View Portable ([id number]): . Results XR Chest 1 View Portable History: Chest pain Comparison: None. Findings: Clear lungs. No pneumothorax. No effusion. No acute osseous abnormality. Impression: Noacute intrathoracic abnormality. 12: 25 PM Reported By: LISS GUDINO Electronically Signed Date/Time: 12/03/221224 Technologist: Dictated Date/Time: 12/03/221224 Transcribed Date/Time: Notes Date/Time Note Provider Source 2024-02-03 11:44:47 Suicide Risk - Assessment and Plan [place]: 1) Have you wished you were or [...] it in the past 3 months?: Yes [place] Score: Suggested risk level: High SAFE-T: Current and past psychiatric diagnoses: Mood Disorder;Alcohol/substance abuse disorders Presenting symptoms: Anhedonia;Hopelessness or despair Family history: Other (see comments) (unknown) Activating Events: Other (see comments) (mom , recently released from intermediate after 20 yrs) Precipitants / stressors: Substance [...] are there things, anyone or anything (family, presybeterian, pain of ) that have stopped you [...] Follow-up determined by the inpatient Psychiatric facility. [facility] 2024-02-03 11:07:10 [facility] 35 minutes [facility] 2024-02-03 10:03:49 [facility]ed [facility]. [facility] 2024-02-03 08:00:50 Patient remains under suicide precautions. Continuous observation in place, patient currently sleeping. T [facility] 2024-02-03 07:02:39 Continue to monitor patient. Patient progressing as expected. T [facility] 2024-02-02 15:20:00 Faxed exclusionary to [facility]. Elizabeth Garcia RN [facility] 2024-02-02 14:50:00 Pt complaining of spot on left forearm that is itching. [facility] 2024-02-02 09:36:32 Report to Abram at [facility]. [facility] 2024-02-02 09:10:59 Sedrick from [facility] called to state pt's bed they secured yesterday has been given away at [facility]. [facility] was able to get pt "first on waiting list" but "Dorian from [facility]" wants pt's clinicals faxed to him. Dorian's phone # [phone]. Will notify PPC. [facility] 2024-02-02 07:05:22 Report to Radha BRICE [facility] Nahomy White RN [facility] 2024-02-02 02:51:12 Pt calm, cooperative, lying with eyes closed. Sitter at bedside. [facility] 2024-02-01 19:25:00 Faxed exclusionary and patient chart to [facility], fax confirmation received. [facility] 2024-02-01 19:09:05 Received report from Radha BRICE, assuming care of patient. [facility] 2024-02-01 17:08:49 Suicide Risk - Assessment and Plan [place]: 1) Have you wished you were or [...] in the past 3 months?: (P) Yes [place] Score: Suggested risk level: (P) High SAFE-T: Current and past psychiatric diagnoses: (P) Mood Disorder;Alcohol/substance abuse disorders Presenting symptoms: (P) Anhedonia;Hopelessness or despair Family history: (P) Other (see comments) (unknown) Activating Events: (P) Other (see comments) (mom , recently released from intermediate after 20 yrs) Precipitants / stressors: (P) [...] are there things, anyone or anything (family, presybeterian, pain of ) that have stopped you [...] Follow-up determined by the inpatient Psychiatric facility. [facility] 2024-02-01 16:42:06 Patient arrives via EM from [facility] with suicidal ideation. Patient reports having a lot going on in his life and is self-medicating with Xanax and Methamphetamine. Patient unsteady gait and falling asleep during triage Silvia Seals RN [facility] - Health 2024-02-01 16:40:00 [facility] Emergency Department Note Patient Name: Channing Calvert Date of : 1985 38 year old male Treatment Room: Room/bed info not found Primary Care Physician: Nina Mata Patient Escorted by: Self [9] Mode of Arrival: EMS - [facility] ([place]) [43] EMS Treatment Prior to ED Arrival: SHIP RIGGER treatment: None Exam Limited by: none Travel [...] Present Illness: Patient arrives via [facility] from [facility] with suicidal & homicidal ideation. Patient [...] those were. He was recently released from intermediate after 20-year sentence and his mother recently. [...] a psychiatric hospital "while I was in intermediate". Review of Systems: Review of Systems Constitutional: [...] 1 disorder History of incarceration History of [place] (myocardial infarction) Allergies: Allergies Allergen Reactions Pork [...] History: Past Surgical History: Procedure Laterality Date TX UNLISTED PROCEDURE HUMERUS/ELBOW Physical Exam: ED Triage [...] 0.01 - 0.09 10*3/uL COMP. METABOLIC PANEL (35158) Collection Time: 02/01/24 5:00 PM Result Value [...] Procedures CBC WITH DIFF COMP. METABOLIC PANEL (99681) ETHANOL URINALYSIS URINE DRUG (IMMUNOASSAY) - COMPREHENSIVE [...] unremarkable [LS] 184 The patient came from [facility] so he does not need an extra screening here. He is medically cleared at this time. Only the urine is pending. [LS] 182 COVID-19 (ID NOW TESTING) All labs below are unremarkable [LS] 182 Acetaminophen(!) [LS] 182 Salicylate [LS] 182 ETHANOL [LS] 1825 CBC WITH DIFF [LS] 182 COMP. METABOLIC PANEL (94011) [LS] ED Course User Index [LS] Carole [...] PROPIONATE 50 MCG/ACTUATION NASAL SPRAY Use 1 Polaris in each nostril daily. IBUPROFEN 400 MG [...] Portions of this note were completed using [employer]. Occasional phonetic or grammatical errors may escape proofreading. Electronically signed by: Carole San M.D., [facility] Evaporator Supervisor Clinical Professor of Emergency Medicine 02/01/2024 4:45 PM Carole San MD 02/02/24 0027 [facility] 2024-02-01 16:40:00 Psychiatric Re-Evaluation Note Emergency Department Date: February 02, 2024 I have reassessed the patient on this shift. The patient states or demonstrates that they are still having: Suicidal ideation or thoughts: Yes Homicidal ideation or thoughts: No Auditory and/or visual hallucinations: Yes Psychosis, paranoia, or other mental instability impairing normal decision making: No Suggested risk level of [place]: High On reassessment, the patient should still [...] Malou Jean Wakili S, MD 02/02/24 0847 [facility] EMERGENCY PHYSICIAN STAFF [facility] 2024-02-01 16:40:00 The patient is signed out pending inpatient psych bed availability for admission. Capacity was found at [facility] and the patient was accepted by Dr. Calderon for admission for continued management. He is pending transportation. Karuna Manzo DO 02/03/24 1144 [facility] 2024-02-01 16:40:00 Psychiatric Re-Evaluation Note Emergency Department Date: February 03, 2024 I have reassessed the patient on this shift. The patient states or demonstrates that they are still having: Suicidal ideation or thoughts: Yes Homicidal ideation or thoughts: No Auditory and/or visual hallucinations: No Psychosis, paranoia, or other mental instability impairing normal decision making: No Suggested risk level of [place]: High On reassessment, the patient should still [...] hydrocortisone 2.5 % cream Bita Westfall MD [facility] 2020-06-11 12:14:00 [facility] ([facility]) EMERGENCY PROVIDER REPORT REPORT#:[id number] REPORT STATUS: Signed DATE:06/11/20 TIME: 4 PATIENT: CHANNING HIGGINBOTHAM UNIT #: [id number] ROOM/BED: AGE: 35 SEX: M PCP PHYS: [...] or Family Physician (PCP/Family) at 1217 RPT #:[id number] END OF REPORT [facility] 2020-06-11 12:14:00 [facility] ([facility]) EMERGENCY PROVIDER REPORT REPORT#:[id number] REPORT STATUS: Signed DATE:06/11/20 TIME: 1214 PATIENT: CHANNING HIGGINBOTHAM UNIT #: [id number] ROOM/BED: AGE: 35 SEX: M PCP PHYS: [...] Saw Pt Alone I have reviewed the PA/GOLD AND SILVER ASSAYER's note and plan of care. I was available for consultation as needed at all times during the patient's visit in the emergency department. I agree with the clinical impression, plan and disposition. at 1217 at 6474 RPT #:[id number] END OF REPORT [facility] 2019-08-03 17:09:00 [facility] ([facility]) EMERGENCY PROVIDER REPORT REPORT#:[id number] REPORT STATUS: Signed DATE:08/03/19 TIME: 1708 PATIENT: CHANNING CALVERT UNIT #: [id number] ROOM/BED: AGE: 34 SEX: M PCP PHYS: [...] Room air 08/03 170 Temp 36.7 08/03 1707 Pulse 82 08/03 170 Resp 18 08/03 1707 Review of Vital [...] (Auto) (14.0 - 32.0 %) 39.2 H [place] % (Auto) (4.8 - 9.0 %) 7.1 Eos % (Auto) (0.3 - 3.7 %) 3.7 Baso % (Auto) (0.0 - 2.0 %) 0.9 Neut # (Auto) (2.0 - 7.6 x10 3/uL) 3.31 Lymph # (Auto) (1.0 - 3.8 x10 3/uL) 2.66 [place] # (Auto) (0.1 - 0.8 x10 3/uL) [...] 1741 Report Impression - Status: SIGNED Entered: 08/03/2019 1757 Impression: Chest, 2 views. Lungs are clear. No consolidation, pleural effusion, or pneumothorax. Cardiomediastinal silhouette is unremarkable. No acute osseous abnormality. SL: [id number] Impression By: [email or web address] - Liss Marcial M.D. [...] Pulse 82 08/03 1707 Resp 18 08/03 170 All vital signs available at the time [...] on 08/03/19 at 1709 at 1842 RPT #:[id number] END OF REPORT [facility] 2019-08-03 17:09:00 [facility] ([facility]) EMERGENCY PROVIDER REPORT REPORT#:[id number] REPORT STATUS: Signed DATE:08/03/19 TIME: 1708 PATIENT: CHANNING CALVERT UNIT #: [id number] ROOM/BED: AGE: 34 SEX: M PCP PHYS: No Primary or Family Physician SERVICE AUTHOR: Oscar Pahn * ALL edits or amendments must be [...] (Auto) (14.0 - 32.0 %) 39.2 H [place] % (Auto) (4.8 - 9.0 %) 7.1 Eos % (Auto) (0.3 - 3.7 %) 3.7 Baso % (Auto) (0.0 - 2.0 %) 0.9 Neut # (Auto) (2.0 - 7.6 x10 3/uL) 3.31 Lymph # (Auto) (1.0 - 3.8 x10 3/uL) 2.66 [place] # (Auto) (0.1 - 0.8 x10 3/uL) [...] 1741 Report Impression - Status: SIGNED Entered: 08/03/2019 175 Impression: Chest, 2 views. Lungs are clear. No consolidation, pleural effusion, or pneumothorax. Cardiomediastinal silhouette is unremarkable. No acute osseous abnormality. SL: [id number] Impression By: [email or web address] - Liss Macrial M.D. Lab Imaging Statement Laboratory radiographic studies [...] STA 08/03 1709 DC 08/03 PO 08/03 1710 171 Patient Discharge Departure Vital Signs/Condition Vital Signs First Documented: Result Date Time Pulse Ox 98 08/03 1707 B/P 129/82 08/03 1707 B/P Mean 97 08/03 1707 O2 Delivery Room air 08/03 1707 Temp 36.7 08/03 1707 Pulse 82 08/03 170 Resp 18 08/03 1707 Last Documented: Result Date Time Pulse Ox 98 08/03 184 B/P 121/79 08/03 1849 B/P Mean 93 [...] Saw Pt Alone I have reviewed the PA/GOLD AND SILVER ASSAYER's note and plan of care. I was available for consultation as needed at all times during the patient's visit in the emergency department. I agree with the clinical impression, plan and disposition. at 1842 at 2001 RPT #:[id number] END OF REPORT [facility] 2019-02-24 23:52:00 [facility] ([facility] EMERGENCY PROVIDER REPORT REPORT#:[id number] REPORT STATUS: Signed DATE:02/24/19 TIME: 2351 PATIENT: CHANNING CALVERT UNIT #: [id number] ROOM/BED: AGE: 34 SEX: M PCP PHYS: No Primary or Family Physician SERVICE AUTHOR: Meenakshi Bangura MD * ALL edits or amendments must be made on the electronic/computer document * HPI-Ingestion FB General Confirmed Patient Yes Initial Greet Date/Time 02/24/19 2306 Presentation Chief Complaint EtOH intoxication, smoked "wet" Hx Obtained From [employer] Onset Occurred Today Symptom Duration Since onset Progression since Onset Unchanged Quality Uncomfortable Free Text HPI Notes Free Text HPI Notes 34 y/o M with PMHx of bipolar disorder, schizophrenia, and MHMR, presents to the ED d/t EtOH intoxication, and smoking "wet" SHIP RIGGER. Pt states he drank, "a bunch" of [...] (Auto) (23.0 - 38.0 %) 14.1 L [place] % (Auto) (1.0 - 10.0 %) 7.4 Eos % (Auto) (1.0 - 5.0 %) 0.1 L Baso % (Auto) (0.0 - 1.0 %) 0.4 Neut # (Auto) (2.4 - 6.3 K/mm3) 10.7 H Lymph # (Auto) (1.2 - 4.0 K/mm3) 2.0 [place] # (Auto) (0.0 - 0.6 K/mm3) 1.0 [...] 100 On: Room air Interpretation Interpreted by id, Pulse oximetry normal Time 2307 Lab Studies [...] Documented: Result Date Time Pulse Ox 100 04/26 2307 B/P 153/100 02/24 2307 B/P Mean [...] on 02/25/19 at 0213 at 0601 RPT #:[id number] END OF REPORT [facility] 2019-02-24 23:52:00 [facility] ([facility] EMERGENCY PROVIDER REPORT REPORT#:[id number] REPORT STATUS: Signed DATE:02/24/19 TIME: 2351 PATIENT: CHANNING CALVERT UNIT #: [id number] ROOM/BED: AGE: 34 SEX: M PCP PHYS: No Primary or Family Physician SERVICE AUTHOR: Meenakshi Bangura MD * ALL edits or amendments must be made on the electronic/computer document * See Addendum HPI-Ingestion FB General Confirmed Patient Yes Initial Greet Date/Time 02/24/192305 Presentation Chief Complaint EtOH intoxication, smoked "wet" Hx Obtained From [employer] Onset Occurred Today Symptom Duration Since onset Progression since Onset Unchanged Quality Uncomfortable Free Text HPI Notes Free Text HPI Notes 34 y/o M with PMHx of bipolar disorder, schizophrenia, and MHMR, presents to the ED d/t EtOH intoxication, and smoking "wet" SHIP RIGGER. Pt states he drank, "a bunch" of [...] (Auto) (23.0 - 38.0 %) 14.1 L [place] % (Auto) (1.0 - 10.0 %) 7.4 Eos % (Auto) (1.0 - 5.0 %) 0.1 L Baso % (Auto) (0.0 - 1.0 %) 0.4 Neut # (Auto) (2.4 - 6.3 K/mm3) 10.7 H Lymph # (Auto) (1.2 - 4.0 K/mm3) 2.0 [place] # (Auto) (0.0 - 0.6 K/mm3) 1.0 [...] 2 MG ED Q2H PRN PRN 02/24 233 AC IM 02/256 Portions of this section were scribed by Geovani Kelley on 02/25/19 at 0213 Patient Discharge Departure Vital Signs/Condition Vital Signs First Documented: Result Date Time Pulse Ox 100 02/24 2307 B/P 153/100 02/24 2307 B/P Mean 117 02/24 2307 O2 Delivery Room air 02/24 230 Temp 36.8 02/24 2307 Pulse 104 02/24 [...] Physician Note Scribe Statement Geovani Kelley, 02/24/19 0114, scribing for and in the presence of Dr. Bangura. Signed By: Geovani Kelley, 02/24/19 9337 Provider Scribed Statement I personally performed the [...] BEDSIDE, WAITING FOR PLACEMENT at 0805 RPT #:[id number] END OF REPORT [facility] 2019-02-24 23:52:00 [facility] ([facility]) EMERGENCY PROVIDER REPORT REPORT#:[id number] REPORT STATUS: Signed DATE:02/24/19 TIME: 2351 PATIENT: CHANNING CALVERT UNIT #: [id number] ROOM/BED: AGE: 34 SEX: M PCP PHYS: No Primary or Family Physician SERVICE AUTHOR: Meenakshi Bangura MD * ALL edits or amendments must be made on the electronic/computer document * See Addendum HPI-Ingestion FB General Confirmed Patient Yes Initial Greet Date/Time 02/24/192305 Presentation Chief Complaint EtOH intoxication, smoked "wet" Hx Obtained From [employer] Onset Occurred Today Symptom Duration Since onset Progression since Onset Unchanged Quality Uncomfortable Free Text HPI Notes Free Text HPI Notes 34 y/o M with PMHx of bipolar disorder, schizophrenia, and MHMR, presents to the ED d/t EtOH intoxication, and smoking "wet" SHIP RIGGER. Pt states he drank, "a bunch" of [...] Ox 100 02/24 230 B/P 153/100 02/24 230 B/P Mean 117 02/24 2307 O2 Delivery [...] (Auto) (23.0 - 38.0 %) 14.1 L [place] % (Auto) (1.0 - 10.0 %) 7.4 Eos % (Auto) (1.0 - 5.0 %) 0.1 L Baso % (Auto) (0.0 - 1.0 %) 0.4 Neut # (Auto) (2.4 - 6.3 K/mm3) 10.7 H Lymph # (Auto) (1.2 - 4.0 K/mm3) 2.0 [place] # (Auto) (0.0 - 0.6 K/mm3) 1.0 [...] 100 On: Room air Interpretation Interpreted by id, Pulse oximetry normal Time 2307 Lab Studies [...] B/P 153/100 02/247 B/P Mean 117 02/24 230 O2 Delivery Room air 02/24 2307 Temp [...] NOT SCREENED, REQUESTED AGAIN at 0852 RPT #:[id number] END OF REPORT [facility] 2019-02-24 23:52:00 [facility] EMERGENCY PROVIDER REPORT REPORT#:[id number] REPORT STATUS: Signed DATE:02/24/19 TIME: 2351 PATIENT: CHANNING CALVERT UNIT #: [id number] ROOM/BED: AGE: 34 SEX: M PCP PHYS: No Primary or Family Physician SERVICE AUTHOR: Meenakshi Bangura MD * ALL edits or amendments must be made on the electronic/computer document * See Addendum HPI-Ingestion FB General Confirmed Patient Yes Initial Greet Date/Time 02/24/192305 Presentation Chief Complaint EtOH intoxication, smoked "wet" Hx Obtained From [employer] Onset Occurred Today Symptom Duration Since onset Progression since Onset Unchanged Quality Uncomfortable Free Text HPI Notes Free Text HPI Notes 34 y/o M with PMHx of bipolar disorder, schizophrenia, and MHMR, presents to the ED d/t EtOH intoxication, and smoking "wet" SHIP RIGGER. Pt states he drank, "a bunch" of [...] (Auto) (23.0 - 38.0 %) 14.1 L [place] % (Auto) (1.0 - 10.0 %) 7.4 Eos % (Auto) (1.0 - 5.0 %) 0.1 L Baso % (Auto) (0.0 - 1.0 %) 0.4 Neut # (Auto) (2.4 - 6.3 K/mm3) 10.7 H Lymph # (Auto) (1.2 - 4.0 K/mm3) 2.0 [place] # (Auto) (0.0 - 0.6 K/mm3) 1.0 [...] 100 On: Room air Interpretation Interpreted by id, Pulse oximetry normal Time 230 Lab Studies [...] Physician Note Scribe Statement Geovani Kelley, 02/24/19 992, scribing for and in the presence of [...] [facility] RECOMMENDS INPATIENT VOLUNTARY at 1155 RPT #:[id number] END OF REPORT [facility] 2019-02-24 23:52:00 [facility] ([facility]) EMERGENCY PROVIDER REPORT REPORT#:[id number] REPORT STATUS: Signed DATE:02/24/19 TIME: 2351 PATIENT: CHANNING CALVERT UNIT #: [id number] ROOM/BED: AGE: 34 SEX: M PCP PHYS: No Primary or Family Physician SERVICE AUTHOR: Meenakshi Bangura MD * ALL edits or amendments must be made on the electronic/computer document * See Addendum HPI-Ingestion FB General Confirmed Patient Yes Initial Greet Date/Time 02/24/192305 Presentation Chief Complaint EtOH intoxication, smoked "wet" Hx Obtained From [employer] Onset Occurred Today Symptom Duration Since onset Progression since Onset Unchanged Quality Uncomfortable Free Text HPI Notes Free Text HPI Notes 34 y/o M with PMHx of bipolar disorder, schizophrenia, and MHMR, presents to the ED d/t EtOH intoxication, and smoking "wet" SHIP RIGGER. Pt states he drank, "a bunch" of [...] (Auto) (23.0 - 38.0 %) 14.1 L [place] % (Auto) (1.0 - 10.0 %) 7.4 Eos % (Auto) (1.0 - 5.0 %) 0.1 L Baso % (Auto) (0.0 - 1.0 %) 0.4 Neut # (Auto) (2.4 - 6.3 K/mm3) 10.7 H Lymph # (Auto) (1.2 - 4.0 K/mm3) 2.0 [place] # (Auto) (0.0 - 0.6 K/mm3) 1.0 [...] Physician Note Scribe Statement Geovani Kelley, 02/24/19 2674, scribing for and in the presence of [...] 3: 02/25/19 1154 by Yohana Pittman MD [facility] RECOMMENDS INPATIENT VOLUNTARY at 1155 Addendum 4: 02/25/19 1254 by Yohana Pittman MD [facility] RECOMMENDS INPT PSYCH at 1255 RPT #:[id number] END OF REPORT [facility] 2019-02-24 23:52:00 [facility] ([facility]) EMERGENCY PROVIDER REPORT REPORT#:[id number] REPORT STATUS: Signed DATE:02/24/19 TIME: 2351 PATIENT: CHANNING CALVERT UNIT #: [id number] ROOM/BED: AGE: 34 SEX: M PCP PHYS: No Primary or Family Physician SERVICE AUTHOR: Meenakshi Bangura MD * ALL edits or amendments must be made on the electronic/computer document * See Addendum HPI-Ingestion FB General Confirmed Patient Yes Initial Greet Date/Time 02/24/19 773 Presentation Chief Complaint EtOH intoxication, smoked "wet" Hx Obtained From [employer] Onset Occurred Today Symptom Duration Since onset Progression since Onset Unchanged Quality Uncomfortable Free Text HPI Notes Free Text HPI Notes 34 y/o M with PMHx of bipolar disorder, schizophrenia, and MHMR, presents to the ED d/t EtOH intoxication, and smoking "wet" SHIP RIGGER. Pt states he drank, "a bunch" of [...] (Auto) (23.0 - 38.0 %) 14.1 L [place] % (Auto) (1.0 - 10.0 %) 7.4 Eos % (Auto) (1.0 - 5.0 %) 0.1 L Baso % (Auto) (0.0 - 1.0 %) 0.4 Neut # (Auto) (2.4 - 6.3 K/mm3) 10.7 H Lymph # (Auto) (1.2 - 4.0 K/mm3) 2.0 [place] # (Auto) (0.0 - 0.6 K/mm3) 1.0 [...] 100 On: Room air Interpretation Interpreted by id, Pulse oximetry normal Time 2307 Lab Studies [...] 2 MG ED Q2H PRN PRN 02/24 233 AC IM 02/25 2226 Portions of this [...] Physician Note Scribe Statement Geovani Kelley, 02/24/19 9782, scribing for and in the presence of Dr. Bangura. Signed By: Geovani Kelley, 02/24/19 6036 Provider Scribed Statement I personally performed the [...] 3: 02/25/19 1154 by Yohana Pittman MD [facility] RECOMMENDS INPATIENT VOLUNTARY at 1155 Addendum 4: 02/25/19 1254 by Yohana Pittman MD [facility] RECOMMENDS INPT PSYCH at 1255 Addendum 5: 02/26/19 0504 by Reynaldo Griggs MD Patient's vital signs are stable, no acute distress, no current issues. [facility] We are currently awaiting placement and transfer. at 0504 RPT #:[id number] END OF REPORT [facility] 2019-02-24 23:52:00 [facility] ([facility]) EMERGENCY PROVIDER REPORT REPORT#:[id number] REPORT STATUS: Signed DATE:02/24/19 TIME: 2351 PATIENT: CHANNING CALVERT UNIT #: [id number] ROOM/BED: AGE: 34 SEX: M PCP PHYS: No Primary or Family Physician SERVICE AUTHOR: Meenakshi Bangura MD * ALL edits or amendments must be made on the electronic/computer document * See Addendum HPI-Ingestion FB General Confirmed Patient Yes Initial Greet Date/Time 02/24/19 1648 Presentation Chief Complaint EtOH intoxication, smoked "wet" Hx Obtained From [employer] Onset Occurred Today Symptom Duration Since onset Progression since Onset Unchanged Quality Uncomfortable Free Text HPI Notes Free Text HPI Notes 34 y/o M with PMHx of bipolar disorder, schizophrenia, and MHMR, presents to the ED d/t EtOH intoxication, and smoking "wet" SHIP RIGGER. Pt states he drank, "a bunch" of [...] (Auto) (23.0 - 38.0 %) 14.1 L [place] % (Auto) (1.0 - 10.0 %) 7.4 Eos % (Auto) (1.0 - 5.0 %) 0.1 L Baso % (Auto) (0.0 - 1.0 %) 0.4 Neut # (Auto) (2.4 - 6.3 K/mm3) 10.7 H Lymph # (Auto) (1.2 - 4.0 K/mm3) 2.0 [place] # (Auto) (0.0 - 0.6 K/mm3) 1.0 [...] 100 On: Room air Interpretation Interpreted by id, Pulse oximetry normal Time 2307 Lab Studies [...] Physician Note Scribe Statement Geovani Kelley, 02/24/19 5949, scribing for and in the presence of Dr. Bangura. Signed By: Geovani Kelley, 02/24/19 5188 Provider Scribed Statement I personally performed the [...] 4: 02/25/19 1254 by Yohana Pittman MD [facility] RECOMMENDS INPT PSYCH at 1255 Addendum 5: [...] PLACEMENT, NO ACUTE COMPLAINTS at 0759 RPT #:[id number] END OF REPORT [facility] 2019-02-24 23:52:00 [facility] ([facility]) EMERGENCY PROVIDER REPORT REPORT#:[id number] REPORT STATUS: Signed DATE:02/24/19 TIME: 2351 PATIENT: CHANNING CALVERT UNIT #: [id number] ROOM/BED: AGE: 34 SEX: M PCP PHYS: No Primary or Family Physician SERVICE AUTHOR: Meenakshi Bangura MD * ALL edits or amendments must be made on the electronic/computer document * See Addendum HPI-Ingestion FB General Confirmed Patient Yes Initial Greet Date/Time 02/24/19 1739 Presentation Chief Complaint EtOH intoxication, smoked "wet" Hx Obtained From [employer] Onset Occurred Today Symptom Duration Since onset Progression since Onset Unchanged Quality Uncomfortable Free Text HPI Notes Free Text HPI Notes 34 y/o M with PMHx of bipolar disorder, schizophrenia, and MHMR, presents to the ED d/t EtOH intoxication, and smoking "wet" SHIP RIGGER. Pt states he drank, "a bunch" of [...] 142/92 02/25 0500 B/P Mean 108 02/25 050 O2 Delivery [...] (Auto) (23.0 - 38.0 %) 14.1 L [place] % (Auto) (1.0 - 10.0 %) 7.4 Eos % (Auto) (1.0 - 5.0 %) 0.1 L Baso % (Auto) (0.0 - 1.0 %) 0.4 Neut # (Auto) (2.4 - 6.3 K/mm3) 10.7 H Lymph # (Auto) (1.2 - 4.0 K/mm3) 2.0 [place] # (Auto) (0.0 - 0.6 K/mm3) 1.0 [...] 100 On: Room air Interpretation Interpreted by id, Pulse oximetry normal Time 2307 Lab Studies [...] 2 MG ED Q2H PRN PRN 02/24 233 AC IM 02/25 2226 Portions of this section were scribed by Geovani Kelley on 02/25/19 at 0213 Patient Discharge Departure Vital Signs/Condition Vital Signs First Documented: Result Date Time Pulse Ox 100 02/24 230 B/P 153/100 02/24 2307 B/P Mean 117 02/24 230 O2 Delivery Room air 02/24 230 Temp 36.8 02/24 2307 Pulse 104 02/24 [...] Physician Note Scribe Statement Geovani Kelley, 02/24/19 2244, scribing for and in the presence of Dr. Bangura. Signed By: Geovani Kelley, 02/24/19 3854 Provider Scribed Statement I personally performed the [...] 4: 02/25/19 1254 by Yohana Pittman MD [facility] RECOMMENDS INPT PSYCH at 1255 Addendum 5: [...] awaiting placement and transfer. at 0638 RPT #:[id number] END OF REPORT [facility] 2019-02-24 23:52:00 [facility] ([facility]) EMERGENCY PROVIDER REPORT REPORT#:[id number] REPORT STATUS: Signed DATE:02/24/19 TIME: 2351 PATIENT: CHANNING CALVERT UNIT #: [id number] ROOM/BED: AGE: 34 SEX: M PCP PHYS: No Primary or Family Physician SERVICE AUTHOR: Meenakshi Bangura MD * ALL edits or amendments must be made on the electronic/computer document * See Addendum HPI-Ingestion FB General Confirmed Patient Yes Initial Greet Date/Time 02/24/192305 Presentation Chief Complaint EtOH intoxication, smoked "wet" Hx Obtained From [employer] Onset Occurred Today Symptom Duration Since onset Progression since Onset Unchanged Quality Uncomfortable Free Text HPI Notes Free Text HPI Notes 34 y/o M with PMHx of bipolar disorder, schizophrenia, and MHMR, presents to the ED d/t EtOH intoxication, and smoking "wet" SHIP RIGGER. Pt states he drank, "a bunch" of [...] (Intermediate, [facility] 07/06/18) diphenhydramine (From BENADRYL) (Intermediate, [facility] 07/06/18) Home Medications Reported Medications No Known [...] 0100: [Embedded Image Not Available] Laboratory Tests: 02/250 0100 Chemistry Sodium (134.0 - 147.0 mmol/l) [...] (Auto) (23.0 - 38.0 %) 14.1 L [place] % (Auto) (1.0 - 10.0 %) 7.4 Eos % (Auto) (1.0 - 5.0 %) 0.1 L Baso % (Auto) (0.0 - 1.0 %) 0.4 Neut # (Auto) (2.4 - 6.3 K/mm3) 10.7 H Lymph # (Auto) (1.2 - 4.0 K/mm3) 2.0 [place] # (Auto) (0.0 - 0.6 K/mm3) 1.0 [...] Physician Note Scribe Statement Geovani Kelley, 02/24/19 6243, scribing for and in the presence of Dr. Bangura. Signed By: Geovani Kelley, 02/24/19 5292 Provider Scribed Statement I personally performed the services described in this documentation and reviewed the documentation that was dictated to the scribe(s) in my presence, and it accurately records my words and actions. Meenakshi Bangura, 02/25/19 Portions of this section were scribed by Geovani Kelley on 02/25/19 at 0213 at 0601 Addendum 1: 02/25/19 0805 by Yoahna Pittman MD PT SLEEPING, NO DISTRESS, VSS, SITTER AT BEDSIDE, WAITING FOR PLACEMENT at 0805 Addendum 2: 02/25/19 0852 by Yohana Pittman MD PT NOT SCREENED, REQUESTED AGAIN at 0852 Addendum 3: 02/25/19 1154 by Yohana Pittman MD [facility] RECOMMENDS INPATIENT VOLUNTARY at 1155 Addendum 4: 02/25/19 1254 by Yohana Pittman MD [facility] RECOMMENDS INPT PSYCH at 1255 Addendum 5: [...] bedside, awaiting psych placement at 0718 RPT #:[id number] END OF REPORT [facility] 2019-02-24 23:52:00 [facility] ([facility]) EMERGENCY PROVIDER REPORT REPORT#:[id number] REPORT STATUS: Signed DATE:02/24/19 TIME: 2351 PATIENT: CHANNING CALVERT UNIT #: [id number] ROOM/BED: AGE: 34 SEX: M PCP PHYS: No Primary or Family Physician SERVICE AUTHOR: Meenakshi Bangura MD * ALL edits or amendments must be made on the electronic/computer document * See Addendum HPI-Ingestion FB General Confirmed Patient Yes Initial Greet Date/Time 02/24/192305 Presentation Chief Complaint EtOH intoxication, smoked "wet" Hx Obtained From [employer] Onset Occurred Today Symptom Duration Since onset Progression since Onset Unchanged Quality Uncomfortable Free Text HPI Notes Free Text HPI Notes 34 y/o M with PMHx of bipolar disorder, schizophrenia, and MHMR, presents to the ED d/t EtOH intoxication, and smoking "wet" SHIP RIGGER. Pt states he drank, "a bunch" of [...] (Auto) (23.0 - 38.0 %) 14.1 L [place] % (Auto) (1.0 - 10.0 %) 7.4 Eos % (Auto) (1.0 - 5.0 %) 0.1 L Baso % (Auto) (0.0 - 1.0 %) 0.4 Neut # (Auto) (2.4 - 6.3 K/mm3) 10.7 H Lymph # (Auto) (1.2 - 4.0 K/mm3) 2.0 [place] # (Auto) (0.0 - 0.6 K/mm3) 1.0 [...] 100 On: Room air Interpretation Interpreted by id, Pulse oximetry normal Time 7 Lab Studies Drug Screen/Level Drug Screen Interpretation [...] Dr. Bangura. Signed By: Geovani Kelley, 02/24/19 3573 Provider Scribed Statement I personally performed the [...] 4: 02/25/19 1254 by Yohana Pittman MD [facility] RECOMMENDS INPT PSYCH at 1255 Addendum 5: [...] and transfer. at 0638 Addendum 8: 02/27/19 07 by Shaunna Cook MD pt resting, NAD, [...] TO TAKE PT HOME. at 1652 RPT #:[id number] END OF REPORT [facility] 2019-02-24 23:52:00 [facility] ([facility]) EMERGENCY PROVIDER REPORT REPORT#:[id number] REPORT STATUS: Signed DATE:02/24/19 TIME: 2351 PATIENT: CHANNING CALVERT UNIT #: [id number] ROOM/BED: AGE: 34 SEX: M PCP PHYS: No Primary or Family Physician SERVICE AUTHOR: Meenakshi Bangura MD * ALL edits or amendments must be made on the electronic/computer document * See Addendum HPI-Ingestion FB General Confirmed Patient Yes Initial Greet Date/Time 02/24/19 2306 Presentation Chief Complaint EtOH intoxication, smoked "wet" Hx Obtained From [employer] Onset Occurred Today Symptom Duration Since onset Progression since Onset Unchanged Quality Uncomfortable Free Text HPI Notes Free Text HPI Notes 34 y/o M with PMHx of bipolar disorder, schizophrenia, and MHMR, presents to the ED d/t EtOH intoxication, and smoking "wet" SHIP RIGGER. Pt states he drank, "a bunch" of [...] (Auto) (23.0 - 38.0 %) 14.1 L [place] % (Auto) (1.0 - 10.0 %) 7.4 Eos % (Auto) (1.0 - 5.0 %) 0.1 L Baso % (Auto) (0.0 - 1.0 %) 0.4 Neut # (Auto) (2.4 - 6.3 K/mm3) 10.7 H Lymph # (Auto) (1.2 - 4.0 K/mm3) 2.0 [place] # (Auto) (0.0 - 0.6 K/mm3) 1.0 [...] Physician Note Scribe Statement Geovani Kelley, 02/24/19 7765, scribing for and in the presence of [...] 4: 02/25/19 1254 by Yohana Pittman MD [facility] RECOMMENDS INPT PSYCH at 1255 Addendum 5: [...] WITH D /C PAPERS. at 1717 RPT #:[id number] END OF REPORT [facility]
--- NOTE | 2025-01-15 22:03 | ER ---
Nurse's Notes [facility] Name: Channing Ron Age: 39 yrs Sex: Male : 1985 Arrival Date: 01/15/2025 Time: 21:43 Bed 24 Private MD: Diagnosis: Presentation: 01/15 21:44 Chief complaint: EMS states: Pt fell and hit his head on concrete about 30minutes ago. jb4 No LOC, does have a laceration on the right side of his head. Coronavirus screen: At this time, the client does not indicate any symptoms associated with coronavirus-19. Ebola Screen: No symptoms or risks identified at this time. Mechanism of Injury: resulted from a fall, from a standing position. Initial Sepsis Screen: Does the patient meet any 2 criteria? No. Patient's initial sepsis screen is negative. Does the patient have a suspected source of infection? No. Patient's initial sepsis screen is negative. Risk Assessment: Do you want to hurt yourself or someone else? Patient reports no desire to harm self or others. Onset of symptoms was January 15, 2025. Transition of care: patient was not received from another setting of care. 21:44 Method Of Arrival: EMS: [facility] jb4 21:44 Acuity: PARTH 3 jb4 Triage Assessment: 21:40 General: Appears in no apparent distress. uncomfortable, Behavior is calm, cooperative, jb4 Smells of alcohol. Pain: Denies pain. EENT: No signs and/or symptoms were reported regarding the EENT system. Neuro: Level of Consciousness is awake, alert, obeys commands, Oriented to person, place, time, situation, Gait is unsteady. Cardiovascular: Patient's skin is warm and dry. Respiratory: Airway is patent Respiratory effort is even, unlabored, Respiratory pattern is regular, symmetrical. Derm: Skin is intact, Skin is pink, warm \\T\\ dry. Musculoskeletal: Circulation, motion, and sensation intact. Range of motion: intact in all extremities. Injury Description: Laceration sustained to right side of the back of head. Historical: - Allergies: 21:50 Haldol; jb4 - Home Meds: 21:50 Restirol [Active]; Zoloft Oral [Active]; jb4 - PMHx: 21:50 Bipolar disorder; jb4 Screenin:02 [facility] ED Fall Risk Assessment (Adult) History of falling in the last 3 months, jb4 including since admission Yes- single mechanical fall (1 pt) Confusion or Disorientation Yes (5 pts) Intoxicated or Sedated Yes (3 pts) Impaired Gait Yes (1 pt) Mobility Assist Device Used No (0 pt) Altered Elimination No (0 pt) Score/Fall Risk Level 3 or more points = High Risk Oriented to surroundings, Maintained a safe environment. Abuse screen: Denies threats or abuse. Nutritional screening: No deficits noted. Tuberculosis screening: No symptoms or risk factors identified. Assessment: 21:59 Reassessment: Pt asked staff to call his . attempted to call, no answer. Pt jb4 informed of this. Pt now up to the door. Refusing to stay stating " I am fine. I have had worse than this. This aint shit. I want my . She is at home, I need to go. I want my ." Explained to the pt that the provider wanted to do a scan to make sure he was okay. Pt refused further medical treatment and walked out. Charge nurse notified, nursing unit manager notified LJ . Vital Signs: 21:44 BP 147 / 91; Pulse 83; Resp 16; Temp 98.5(O); Pulse Ox 96% on R/A; Weight 99.79 kg (R); jb4 Height 6 ft. 1 in. (R); 21:44 Body Mass Index 29.03 (99.79 kg, 185.42 cm) jb4 Freddy Coma Score: 21:44 Eye Response: spontaneous(4). Motor Response: obeys commands(6). Verbal Response: jb4 oriented(5). Total: 15. 21:50 Eye Response: spontaneous(4). Motor Response: obeys commands(6). Verbal Response: cp oriented(5). Total: 15. ED Course: 21:44 Patient arrived in ED. jj6 21:44 Júnior Aranda, YUNIEL is Primary Nurse. jb4 21:44 Jacob Palomo PA is PHCP. cp 21:44 Jaylen Fierro MD is Attending Physician. cp 21:50 Triage completed. jb4 21:59 Arm band placed on right wrist. jb4 Administered Medications: No medications were administered Outcome: 22:02 Eloped from patient exam room, after seeing physician Time discovered patient gone: jb4 January 15, 2025 at 21:50 22:03 Patient left the ED. jb4 Signatures: Jacob Palomo PA PA cp Bryson, James, RN RN jb4 Bianca Thompson jj6
--- NOTE | 2025-01-15 22:03 | EDPHYS ---
Physician Documentation [facility] Name: Channing Ron Age: 39 yrs Sex: Male : 1985 Arrival Date: 01/15/2025 Time: 21:43 Bed 24 Private MD: ED Physician Jaylen Fierro HPI: 01/15 21:50 This 39 yrs old Male presents to ER via EMS with complaints of Head Injury-Adult. cp 21:50 The patient or guardian reports injury, a laceration, swelling, tenderness. The cp complaints affect the left side of the back of head. Context of injury: resulted from a fall. Onset: The symptoms/episode began/occurred just prior to arrival. 21:50 Associated signs and symptoms: Pertinent negatives: active vomiting. cp Historical: - Allergies: 21:50 Haldol; jb4 - Home Meds: 21:50 Restirol [Active]; Zoloft Oral [Active]; jb4 - PMHx: 21:50 Bipolar disorder; jb4 ROS: 21:55 MS/extremity: Positive for contusion, laceration, swelling, tenderness, of the left cp side of the back of head, 21:55 Constitutional: history per hpi cp 21:55 Abdomen/GI: Negative for active vomiting, 21:55 Neuro: Negative for seizure activity, 21:55 All other systems are negative, Exam: 21:57 Constitutional: The patient appears in no acute distress, alert, awake, cp non-diaphoretic, non-toxic, well developed, well nourished, smells of alcohol, 21:57 Head/face: Noted is contusion, of the left side of the back of head, a laceration(s), swelling, tenderness, 21:57 Eyes: Periorbital structures: appear normal, Pupils: equal, round, and reactive to cp light and accomodation, Extraocular movements: intact throughout, Lids and lashes: appear normal, bilaterally, 21:57 ENT: External ear(s): are unremarkable, Nose: is normal, Mouth: Lips: moist, Oral mucosa: moist, 21:57 Neck: C-spine: vertebral tenderness, is not appreciated, crepitus, is not appreciated, ROM/movement: pain, is not appreciated, limited range of motion, is not appreciated, 21:57 Chest/axilla: Inspection: normal, 21:57 Cardiovascular: Rate: normal, 21:57 Respiratory: the patient does not display signs of respiratory distress, Respirations: normal, no use of accessory muscles, no retractions, labored breathing, is not present, Breath sounds: are clear throughout, no decreased breath sounds, no stridor, no wheezing, 21:57 Abdomen/GI: Exam negative for discomfort, distension, guarding, Inspection: abdomen appears normal, 21:57 Back: pain, is absent, ROM is normal, vertebral tenderness, is not appreciated, 21:57 Neuro: Orientation: to person, place \T\ time. Mentation: able to follow commands, Motor: moves all fours, strength is normal, Gait: is steady, Vital Signs: 21:44 BP 147 / 91; Pulse 83; Resp 16; Temp 98.5(O); Pulse Ox 96% on R/A; Weight 99.79 kg (R); jb4 Height 6 ft. 1 in. (R); 21:44 Body Mass Index 29.03 (99.79 kg, 185.42 cm) jb4 [place] Coma Score: 21:44 Eye Response: spontaneous(4). Motor Response: obeys commands(6). Verbal Response: jb4 oriented(5). Total: 15. 21:50 Eye Response: spontaneous(4). Motor Response: obeys commands(6). Verbal Response: cp oriented(5). Total: 15. MDM: 21:46 Medical Screening Exam initiated cp 22:00 Data reviewed: vital signs, nurses notes. cp 22:00 ED course: VSS. Patient left ED after being seen prior to radiology studies being done cp and w/o notification of staff. Law enforcement notified by nursing staff. 03 21:46 Order name: Wound Care cp Administered Medications: No medications were administered Disposition: 01/16 19:50 Chart complete. cp Disposition Summary: 01/15/25 22:03 Eloped Notes: Disposition: after being seen by provider jb4 Reason: (see nurse's notes) jb4 Signatures: Dispatcher [employer] EDMS Jacob Palomo PA PA cp Bryson, James, RN RN jb4 Corrections: (The following items were deleted from the chart) 01/15 21:46 21:46 Head C Spine MPR Wo Con+CT.RAD.BRZ ordered. EDMS EDMS
[2025-01-15 22:13] VITALS: BP 147/91; TEMP 98.5; O2SAT 96
== END 2025-01-15 22:03 | disposition left against medical advice (07) ==
LOC: ER 21:43
DX: S01.81XA Laceration without foreign body of other part of head, initial encounter (principal)
CPT/HCPCS: 99282